=== PATIENT | male | born 1990 | race African-American/Black ===

== ENCOUNTER 2019-07-19 11:17 | Emergency (ER) | payer SELFPAY ==
[2019-07-19] MEDS ORDERED: METHYLPREDNISOLONE 125 MG INJ ONE (12:03)
[2019-07-19] MEDS ORDERED: ONDANSETRON 4 MG/2 ML VIAL ONE (12:03)
[2019-07-19] MEDS ORDERED: MORPHINE 4 MG/ML SYR ONE (12:03)
[2019-07-19] MEDS ORDERED: NA CHLORIDE 0.9% 1,000 ML ONE (12:04)
[2019-07-19 12:45] LABS: Absolute Lymphocytes (CBC) 1.4 K/uL (0.7-4.9); Basophils % 0.8 % (0-1.3); Hematocrit 47.4 % (39.6-49.0); Lymphocytes % 17.9 % (15.3-44.8); MPV 10.2 fL (7.6-11.3); RBC Red Blood Cell Count 5.48 M/uL (4.33-5.43)
[2019-07-19 13:10] LABS: Albumin 4.6 g/dL (3.4-5.0); Bilirubin Direct 0.2 mg/dL (0-0.2); Bilirubin Total 0.9 mg/dL (0.2-1.0); Potassium 3.9 mmol/L (3.5-5.1); Protein, Total 9.1 g/dL (6.4-8.2)
--- NOTE | 2019-07-19 13:39 | RAD REPORT ---
EXAM DESCRIPTION: CTAbdomen Pelvis W Contrast - 07/19/2019 1:23 pm CLINICAL HISTORY: Abdominal pain. ABD PAIN COMPARISON: CT ABD PELVIS W CONTRAST dated 06/17/2012 TECHNIQUE: Biphasic CT imaging of the abdomen and pelvis was performed with 100 ml non-ionic IV cont rast. All CT scans are performed using dose optimization technique as appropriate and may include automated exposure control or mA/KV adjustment according to patient size. FINDINGS: The lung bases are clear. The liver contains a 16 mm low-density lesion in the posterior right lobe, likely benign. The spleen, pancreas, adrenal glands and kidneys are within normal limits. No bowel obstruction, free air, free fluid or abscess. Mild thickening of the wall of the ileum is pr esent. Terminal ileum shows mild surrounding inflammatory changes. The appendix is normal. No eviden ce of significant lymphadenopathy. No suspicious bony findings. IMPRESSION: Mild terminal ileitis is present suggesting underlying Crohn's disease.
--- NOTE | 2019-07-19 13:49 | ER ---
Nurse's Notes [facility] Name: Talib Oconnell Age: 28 yrs Sex: Male : 1990 Arrival Date: 07/19/2019 Time: 11:19 Bed 20 Private MD: Diagnosis: Crohn's disease [regional enteritis] Presentation: 07/19 11:35 Presenting complaint: Patient states: LUQ pain that began yesterday. Patient has a ss history of Crohn's and reports this feels like a flare up. Transition of care: patient was not received from another setting of care. Onset of symptoms was July 18, 2019. Risk Assessment: Do you want to hurt yourself or someone else? Patient reports no desire to harm self or others. Initial Sepsis Screen: Does the patient meet any 2 criteria? HR > 90 bpm. Does the patient have a suspected source of infection? No. Patient's initial sepsis screen is negative. Care prior to arrival: None. 11:35 Method Of Arrival: Ambulatory ss 11:35 Acuity: SUNI 3 ss Historical: - Allergies: 12:39 No Known Allergies; jl7 - Home Meds: 11:34 None [Active]; ss - PMHx: 11:34 Crohn's; ss - PSHx: 11:34 None; ss - Immunization history:: Adult Immunizations up to date. - Social history:: Smoking status: Patient uses tobacco products, smokes one pack cigarettes per day. - Ebola Screening: : Patient denies exposure to infectious person Patient denies travel to an Ebola-affected area in the 21 days before illness onset. Screenin:39 Abuse screen: Denies threats or abuse. Denies injuries from another. Nutritional jl7 screening: No deficits noted. Tuberculosis screening: No symptoms or risk factors identified. Fall Risk IV access (20 points). Total Dent Fall Scale indicates No Risk (0-24 pts). Assessment: 12:20 General: Appears in no apparent distress. uncomfortable, Behavior is cooperative, jl7 appropriate for age, anxious. Pain: Complains of pain in abdomen diffusely Pain currently is 8 out of 10 on a pain scale. Quality of pain is described as sharp, throbbing, Pain began 1 day ago. Is continuous. Neuro: Level of Consciousness is awake, alert, obeys commands, Oriented to person, place, time, situation. Cardiovascular: Patient's skin is warm and dry. Respiratory: Airway is patent Respiratory effort is even, unlabored, Respiratory pattern is regular, symmetrical. GI: Abdomen is flat, non-distended, Stools are reported to be normal. Last BM was July 19, 2019. : No signs and/or symptoms were reported regarding the genitourinary system. EENT: No signs and/or symptoms were reported regarding the EENT system. Derm: Skin is dry, Skin is normal, Skin temperature is warm. Vital Signs: 11:34 BP 131 / 118; Pulse 105; Resp 18; Temp 98.8(TE); Pulse Ox 100% on R/A; Weight 68.04 kg; ss Height 5 ft. 8 in. (172.72 cm); Pain 10/10; 11:36 BP 129 / 103; Pulse 99; ss 12:25 BP 140 / 89; Pulse 87; Resp 16 S; Pulse Ox 100% on R/A; Pain 8/10; jl7 14:00 BP 129 / 87; Pulse 66; Resp 16 S; Pulse Ox 100% on R/A; Pain 4/10; jl7 11:34 Body Mass Index 22.81 (68.04 kg, 172.72 cm) ED Course: 11:19 Patient arrived in ED. mr 11:21 Kleber Guidryistin, [facility]. kb 11:21 Fuad De La Garza MD is Attending Physician. kb 11:34 Arm band placed on left wrist. ss 11:35 Triage completed. ss 11:54 Melanie Damon, AUDRA is Primary Nurse. jl7 12:39 Patient has correct armband on for positive identification. Placed in gown. Bed in low jl7 position. Call light in reach. Side rails up X 1. Pulse ox on. NIBP on. 12:39 Initial lab(s) drawn, by me, sent to lab. Inserted saline lock: 22 gauge in right jl7 forearm, using aseptic technique. Blood collected. 13:26 CT Abd/Pelvis - IV Contrast Only In Process Unspecified. EDMS 14:00 No provider procedures requiring assistance completed. IV discontinued, intact, jl7 bleeding controlled, No redness/swelling at site. Pressure dressing applied. Administered Medications: 12:25 Drug: NS 0.9% 1000 ml Route: IV; Rate: 1000 ml; Site: right forearm; jl7 13:30 Follow up: Response: No adverse reaction; IV Status: Completed infusion; IV Intake: jl7 1000ml 12:26 Drug: SOLU-Medrol 125 mg Route: IVP; Site: right forearm; jl7 14:16 Follow up: Response: No adverse reaction jl7 12:27 Drug: Zofran 4 mg Route: IVP; Site: right forearm; jl7 14:15 Follow up: Response: No adverse reaction jl7 12:28 Drug: morphine 4 mg Route: IVP; Site: right forearm; jl7 12:45 Follow up: Response: No adverse reaction; Pain is decreased jl7 13:59 Drug: Cipro 500 mg Route: PO; jl7 14:00 Follow up: Response: Medication administered at discharge. jl7 13:59 Drug: Flagyl 500 mg Route: PO; jl7 14:00 Follow up: Response: Medication administered at discharge. jl7 Intake: 13:30 IV: 1000ml; Total: 1000ml. jl7 Outcome: 13:48 Discharge ordered by . patrick 14:00 Discharged to home ambulatory. jl7 14:00 Condition: stable 14:00 Discharge instructions given to patient, family, Instructed on discharge instructions, follow up and referral plans. medication usage, Demonstrated understanding of instructions, follow-up care, medications. 14:18 Patient left the ED. jl7 Signatures: Dispatcher [employer] EDMS Darlene Guidry, CHECK EXAMINER-C CHECK EXAMINER-Armen Ishaan Lea duran Yue Kang RN RN ss Leal, Jahala, RN RN jl7 Corrections: (The following items were deleted from the chart) 14:18 14:17 No provider procedures requiring assistance completed. jl7 jl7 14:18 14:17 IV discontinued, intact, bleeding controlled, No redness/swelling at site. jl7 Pressure dressing applied, jl7
--- NOTE | 2019-07-19 13:50 | EDPHYS ---
Physician Documentation [facility] Name: Talib Oconnell Age: 28 yrs Sex: Male : 1990 Arrival Date: 07/19/2019 Time: 11:19 Bed 20 Private MD: JACQUI Physician Fuad De La Garza HPI: 07/19 11:57 This 28 yrs old Black Male presents to ER via Ambulatory with complaints of Abdominal kb Pain, Vomiting. 11:57 The patient presents with abdominal pain in the upper abdomen. Onset: The kb symptoms/episode began/occurred yesterday. The symptoms do not radiate. Associated signs and symptoms: none. The symptoms are described as constant, sharp. Modifying factors: The symptoms are alleviated by nothing, the symptoms are aggravated by nothing. Severity of pain: At its worst the pain was moderate severe in the emergency department the pain is unchanged. The patient has experienced a previous episode. The patient has not recently seen a physician. Pt reports he was diagnosed with crohn's in February in [place]. States they told him to follow up with GI, but he didn't. The pain started again yesterday so he called to make a GI appt, but it isn't until next week. Reports pain is worse today. Historical: - Allergies: 12:39 No Known Allergies; jl7 - Home Meds: 11:34 None [Active]; ss - PMHx: 11:34 Crohn's; ss - PSHx: 11:34 None; ss - Immunization history:: Adult Immunizations up to date. - Social history:: Smoking status: Patient uses tobacco products, smokes one pack cigarettes per day. - Ebola Screening: : Patient denies exposure to infectious person Patient denies travel to an Ebola-affected area in the 21 days before illness onset. ROS: 11:59 Constitutional: Negative for fever, chills, and weight loss, ENT: Negative for injury, kb pain, and discharge, Neck: Negative for injury, pain, and swelling, Cardiovascular: Negative for chest pain, palpitations, and edema, Respiratory: Negative for shortness of breath, cough, wheezing, and pleuritic chest pain, Back: Negative for injury and pain, : Negative for injury, bleeding, discharge, and swelling, MS/Extremity: Negative for injury and deformity, Skin: Negative for injury, rash, and discoloration, Neuro: Negative for headache, weakness, numbness, tingling, and seizure. 11:59 Abdomen/GI: Positive for abdominal pain, Negative for nausea, vomiting, and diarrhea, constipation, abdominal cramps, abdominal distension, anorexia. Exam: 11:59 Constitutional: This is a well developed, well nourished patient who is awake, alert, kb and in no acute distress. Head/Face: Normocephalic, atraumatic. ENT: Nares patent. No nasal discharge, no septal abnormalities noted. Tympanic membranes are normal and external auditory canals are clear. Oropharynx with no redness, swelling, or masses, exudates, or evidence of obstruction, uvula midline. Mucous membranes moist. Neck: Trachea midline, no thyromegaly or masses palpated, and no cervical lymphadenopathy. Supple, full range of motion without nuchal rigidity, or vertebral point tenderness. No Meningismus. Chest/axilla: Normal chest wall appearance and motion. Nontender with no deformity. No lesions are appreciated. Cardiovascular: Regular rate and rhythm with a normal S1 and S2. No gallops, murmurs, or rubs. Normal PMI, no JVD. No pulse deficits. Respiratory: Lungs have equal breath sounds bilaterally, clear to auscultation and percussion. No rales, rhonchi or wheezes noted. No increased work of breathing, no retractions or nasal flaring. Back: No spinal tenderness. No costovertebral tenderness. Full range of motion. Skin: Warm, dry with normal turgor. Normal color with no rashes, no lesions, and no evidence of cellulitis. MS/ Extremity: Pulses equal, no cyanosis. Neurovascular intact. Full, normal range of motion. Neuro: Awake and alert, GCS 15, oriented to person, place, time, and situation. Cranial nerves II-XII grossly intact. Motor strength 5/5 in all extremities. Sensory grossly intact. Cerebellar exam normal. Normal gait. 11:59 Abdomen/GI: Inspection: abdomen appears normal, Bowel sounds: normal, in all quadrants, Palpation: soft, in all quadrants, moderate abdominal tenderness, in all quadrants. Vital Signs: 11:34 BP 131 / 118; Pulse 105; Resp 18; Temp 98.8(TE); Pulse Ox 100% on R/A; Weight 68.04 kg; ss Height 5 ft. 8 in. (172.72 cm); Pain 10/10; 11:36 BP 129 / 103; Pulse 99; ss 12:25 BP 140 / 89; Pulse 87; Resp 16 S; Pulse Ox 100% on R/A; Pain 8/10; jl7 14:00 BP 129 / 87; Pulse 66; Resp 16 S; Pulse Ox 100% on R/A; Pain 4/10; jl7 11:34 Body Mass Index 22.81 (68.04 kg, 172.72 cm) MDM: 11:37 Patient medically screened. rosalina 11:59 Data reviewed: vital signs, nurses notes. Data interpreted: Pulse oximetry: on room air kb is 100 %. Interpretation: normal. 13:47 Counseling: I had a detailed discussion with the patient and/or guardian regarding: the kb historical points, exam findings, and any diagnostic results supporting the discharge/admit diagnosis, lab results, radiology results, the need for outpatient follow up, a family practitioner, a overnight houseperson, to return to the emergency department if symptoms worsen or persist or if there are any questions or concerns that arise at home. 07/19 11:54 Order name: Basic Metabolic Panel; Complete Time: 13:12 kb 07/19 11:54 Order name: CBC with Diff; Complete Time: 13:10 kb 07/19 11:54 Order name: Hepatic Function; Complete Time: 13:12 kb 07/19 11:54 Order name: Lipase; Complete Time: 13:12 kb 07/19 11:55 Order name: CT Abd/Pelvis - IV Contrast Only; Complete Time: 13:44 kb 07/19 11:54 Order name: IV Saline Lock; Complete Time: 12:34 kb 07/19 11:54 Order name: Labs collected and sent; Complete Time: 12:34 kb Administered Medications: 12:25 Drug: NS 0.9% 1000 ml Route: IV; Rate: 1000 ml; Site: right forearm; jl7 13:30 Follow up: Response: No adverse reaction; IV Status: Completed infusion; IV Intake: jl7 1000ml 12:26 Drug: SOLU-Medrol 125 mg Route: IVP; Site: right forearm; jl7 14:16 Follow up: Response: No adverse reaction jl7 12:27 Drug: Zofran 4 mg Route: IVP; Site: right forearm; jl7 14:15 Follow up: Response: No adverse reaction jl7 12:28 Drug: morphine 4 mg Route: IVP; Site: right forearm; jl7 12:45 Follow up: Response: No adverse reaction; Pain is decreased jl7 13:59 Drug: Cipro 500 mg Route: PO; jl7 14:00 Follow up: Response: Medication administered at discharge. jl7 13:59 Drug: Flagyl 500 mg Route: PO; jl7 14:00 Follow up: Response: Medication administered at discharge. jl7 Disposition: 07/20 06:41 Co-signature as Attending Physician, Fuad De La Garza MD I agree with the assessment and rosalina plan of care. Disposition: 07/19/19 13:48 Discharged to Home. Impression: Crohn's disease [regional enteritis]. - Condition is Stable. - Discharge Instructions: Crohn Disease. - Prescriptions for Bentyl 20 mg Oral Tablet - take 1 tablet by ORAL route every 6 hours As needed; 20 tablet. Flagyl 500 mg Oral Tablet - take 1 tablet by ORAL route every 8 hours for 7 days; 21 tablet. Cipro 500 mg Oral Tablet - take 1 tablet by ORAL route every 12 hours for 7 days; 14 tablet. Medrol (Jeovanny) 4 mg Oral Tablets, Dose Pack - take 1 tablet by ORAL route as directed - follow package instructions; 1 packet. - Medication Reconciliation Form, Thank You Letter, Antibiotic Education, Prescription Opioid Use form. - Follow up: Emergency Department; When: As needed; Reason: Worsening of condition. Follow up: Private Physician; When: 2 - 3 days; Reason: Recheck today's complaints, Continuance of care, Re-evaluation by your physician. Signatures: Dispatcher [employer] Darlene Goldberg, JOSEFINA DEL RIO-Fuad Steinberg MD MD cha Smirch, Shelby, RN RN ss Leal, Jahala, RN RN jl7 Corrections: (The following items were deleted from the chart) 07/19 14:18 13:48 07/19/2019 13:48 Discharged to Home. Impression: Crohn's disease [regional jl7 enteritis]. Condition is Stable. Forms are Medication Reconciliation Form, Thank You Letter, Antibiotic Education, Prescription Opioid Use. Follow up: Emergency Department; When: As needed; Reason: Worsening of condition. Follow up: Private Physician; When: 2 - 3 days; Reason: Recheck today's complaints, Continuance of care, Re-evaluation by your physician. kb
[2019-07-19] MEDS ORDERED: CIPROFLOXACIN HCL 500 MG TAB ONE (13:53)
[2019-07-19] MEDS ORDERED: metroNIDAZOLE 500 MG TABLET ONE (13:53)
[2019-07-19 14:43] VITALS: TEMP 98.8; O2SAT 100
[2019-07-19 14:46] VITALS: BP 129/87
== END 2019-07-19 14:18 | disposition home or self-care (01) ==
LOC: ER 11:17
DX: K50.90 Crohn's disease, unspecified, without complications (principal); F17.210 Nicotine dependence, cigarettes, uncomplicated
CPT/HCPCS: 36415; 74177; 80048; 80076; 83690; 85025; 96361; 96374; 96375; 99284; J2405; J2930; J7030; Q9967

== ENCOUNTER 2020-07-17 09:15 | Emergency (ER) | payer SELFPAY ==
[2020-07-17 10:14] LABS: Absolute Lymphocytes (CBC) 0.8 K/uL (0.7-4.9); Basophils % 0.9 % (0-1.3); Hematocrit 40.4 % (39.6-49.0); Lymphocytes % 10.9 % (15.3-44.8); MPV 9.6 fL (7.6-11.3); RBC Red Blood Cell Count 4.62 M/uL (4.33-5.43)
[2020-07-17] MEDS ORDERED: METHYLPREDNISOLONE 125 MG INJ ONE (10:17)
[2020-07-17] MEDS ORDERED: MORPHINE 4 MG/ML SYR ONE (10:18)
[2020-07-17] MEDS ORDERED: FAMOTIDINE 20 MG/2 ML VIAL IV ONE (10:18)
[2020-07-17] MEDS ORDERED: NA CHLORIDE 0.9% 1,000 ML ONE (10:18)
[2020-07-17] MEDS ORDERED: ONDANSETRON 4 MG/2 ML VIAL ONE (10:18)
[2020-07-17 10:26] LABS: ALT/SGPT 37 U/L (12-78); AST/SGOT 26 U/L (15-37); Albumin 3.7 g/dL (3.4-5.0); Alkaline Phosphatase 115 U/L (45-117); BUN Blood Urea Nitrogen 11 mg/dL (7-18); Bicarbonate 26 mmol/L (21-32); Bilirubin Direct < 0.1 mg/dL (0-0.2); Bilirubin Total 0.3 mg/dL (0.2-1.0); Glucose Level 92 mg/dL (74-106); Lipase 85 U/L (73-393); Potassium 3.6 mmol/L (3.5-5.1); Protein, Total 7.3 g/dL (6.4-8.2); Sodium Level 140 mmol/L (136-145)
--- NOTE | 2020-07-17 12:00 | EDPHYS ---
Physician Documentation [facility] Name: Talib Oconnell Age: 29 yrs Sex: Male : 1990 Arrival Date: 07/17/2020 Time: 09:19 Bed 14 Private MD: ED Physician Anderson Graf HPI: 07/17 19:42 This 29 yrs old Black Male presents to ER via Ambulatory with complaints of Crohns kdr flare up. 19:42 The patient presents with abdominal pain in the epigastric area, in the upper abdomen. kdr Onset: The symptoms/episode began/occurred suddenly, this morning. The symptoms do not radiate. Associated signs and symptoms: Pertinent positives: nausea and vomiting, Pertinent negatives: blood in stools, chest pain, constipation, diarrhea, dysuria, fever, headache, hematuria, palpitations, shortness of breath, testicular pain. The symptoms are described as achy, crampy, vague, waxing/waning. Modifying factors: The symptoms are alleviated by nothing, the symptoms are aggravated by breathing deeply, movement, touching the area. Severity of pain: At its worst the pain was moderate in the emergency department the pain is unchanged. The patient has experienced similar episodes in the past, multiple times. The patient has not recently seen a physician. Historical: - Allergies: 10:17 No Known Allergies; bp - Home Meds: 10:17 None [Active]; bp - PMHx: 10:17 Crohn's; bp - Immunization history:: Adult Immunizations unknown. - Social history:: Smoking status: Patient denies any tobacco usage or history of. ROS: 07/18 09:22 Constitutional: Negative for fever, chills, and weight loss, Eyes: Negative for injury, kdr pain, redness, and discharge, ENT: Negative for injury, pain, and discharge, Neck: Negative for injury, pain, and swelling, Cardiovascular: Negative for chest pain, palpitations, and edema, Respiratory: Negative for shortness of breath, cough, wheezing, and pleuritic chest pain, Back: Negative for injury and pain, : Negative for injury, bleeding, discharge, and swelling, MS/Extremity: Negative for injury and deformity, Skin: Negative for injury, rash, and discoloration, Neuro: Negative for headache, weakness, numbness, tingling, and seizure activity. Psych: Negative for depression, anxiety, suicide ideation, homicidal ideation, and hallucinations, Allergy/Immunology: Negative for hives, rash, and allergies, Endocrine: Negative for neck swelling, polydipsia, polyuria, polyphagia, and marked weight changes, Hematologic/Lymphatic: Negative for swollen nodes, abnormal bleeding, and unusual bruising. Abdomen/GI: Positive for abdominal pain, nausea, Negative for constipation, abdominal cramps, abdominal distension, anorexia, dysphagia, hematemesis, black/tarry stool, rectal pain, rectal bleeding, bowel incontinence. Exam: 09:22 Constitutional: This is a well developed, well nourished patient who is awake, alert, kdr and in no acute distress. Head/Face: Normocephalic, atraumatic. Eyes: Pupils equal round and reactive to light, extra-ocular motions intact. Lids and lashes normal. Conjunctiva and sclera are non-icteric and not injected. Cornea within normal limits. Periorbital areas with no swelling, redness, or edema. Neck: Trachea midline, no thyromegaly or masses palpated, and no cervical lymphadenopathy. Supple, full range of motion without nuchal rigidity, or vertebral point tenderness. No Meningismus. Chest/axilla: Normal chest wall appearance and motion. Nontender with no deformity. No lesions are appreciated. Cardiovascular: Regular rate and rhythm with a normal S1 and S2. No gallops, murmurs, or rubs. Normal PMI, no JVD. No pulse deficits. Respiratory: Lungs have equal breath sounds bilaterally, clear to auscultation and percussion. No rales, rhonchi or wheezes noted. No increased work of breathing, no retractions or nasal flaring. Back: No spinal tenderness. No costovertebral tenderness. Full range of motion. Skin: Warm, dry with normal turgor. Normal color with no rashes, no lesions, and no evidence of cellulitis. MS/ Extremity: Pulses equal, no cyanosis. Neurovascular intact. Full, normal range of motion. Neuro: Awake and alert, GCS 15, oriented to person, place, time, and situation. Cranial nerves II-XII grossly intact. Motor strength 5/5 in all extremities. Sensory grossly intact. Cerebellar exam normal. Normal gait. Psych: Awake, alert, with orientation to person, place and time. Behavior, mood, and affect are within normal limits. 09:22 Abdomen/GI: Inspection: abdomen appears normal, Bowel sounds: active, diminished, in all quadrants, Palpation: soft, mild abdominal tenderness, in all quadrants. Vital Signs: 07/17 09:40 BP 130 / 80; Pulse 91; Resp 20; Temp 98.7; Pulse Ox 100% ; Weight 64.41 kg; Height 5 dm5 ft. 8 in. (172.72 cm); Pain 7/10; 10:19 BP 134 / 87; Pulse 82; Resp 16; Pulse Ox 100% ; bp 11:31 BP 138 / 98; Pulse 86; Resp 16; Pulse Ox 100% ; bp 11:59 BP 133 / 86; Pulse 89; Resp 16; Temp 98.5; Pulse Ox 100% ; bp 09:40 Body Mass Index 21.59 (64.41 kg, 172.72 cm) dm5 MDM: 11:59 Patient medically screened. kdr 07/18 09:22 Data reviewed: vital signs, nurses notes, lab test result(s). Counseling: I had a kdr detailed discussion with the patient and/or guardian regarding: the historical points, exam findings, and any diagnostic results supporting the discharge/admit diagnosis, lab results, the need for outpatient follow up. ED course: The patient states that this episode of pain and flare is typical. We discussed that if this episode was typical and not unique, then there was no need for further CT scans. He improved with the interventions given and was happy with the care proved and the plan for discharge and follow-up. 07/17 09:42 Order name: Basic Metabolic Panel; Complete Time: 10:52 kdr 07/17 09:42 Order name: CBC with Diff; Complete Time: 10:52 kdr 07/17 09:42 Order name: Hepatic Function; Complete Time: 10:52 kdr 07/17 09:42 Order name: Lipase; Complete Time: 10:52 kdr 07/17 09:42 Order name: IV Saline Lock; Complete Time: 10:12 kdr 07/17 09:42 Order name: Labs collected and sent; Complete Time: 10:12 kdr Administered Medications: 07/17 10:00 Drug: morphine 4 mg Route: IVP; Site: right forearm; bp 11:58 Follow up: Response: Pain is decreased bp 10:00 Drug: Zofran (Ondansetron) 4 mg Route: IVP; Site: right forearm; bp 11:58 Follow up: Response: Nausea is decreased bp 10:00 Drug: NS 0.9% 1000 ml Route: IV; Rate: 1 bolus; Site: right forearm; bp 11:58 Follow up: IV Status: Completed infusion bp 10:00 Drug: Pepcid 20 mg Route: IVP; Site: right forearm; bp 11:58 Follow up: Response: Nausea is decreased bp 10:00 Drug: SOLU-Medrol 125 mg Route: IVP; Site: right forearm; bp 11:58 Follow up: Response: Pain is decreased bp Disposition: 07/17/20 11:59 Discharged to Home. Impression: Abdominal and pelvic pain, Nausea and vomiting, Diarrhea, unspecified, Crohn's disease, unspecified. - Condition is Fair. - Discharge Instructions: Crohn Disease, Nausea and Vomiting, Adult, [id number], Abdominal Pain, Adult, [id number], Diarrhea, Adult, [id number]. - Prescriptions for Bentyl 20 mg Oral Tablet - take 1 tablet by ORAL route every 6 hours As needed; 20 tablet. Cipro 500 mg Oral Tablet - take 1 tablet by ORAL route every 12 hours for 10 days; 20 tablet. Flagyl 500 mg Oral Tablet - take 1 tablet by ORAL route every 6 hours for 10 days; 40 tablet. Pepcid 20 mg Oral Tablet - take 1 tablet by ORAL route every 12 hours for 5 days; 10 tablet. Tramadol 50 mg Oral Tablet - take 1 tablet by ORAL route every 6-8 hours As needed as needed; 12 tablet. Medrol (Jeovanny) 4 mg Oral Tablets, Dose Pack - take 1 tablet by ORAL route as directed - follow package instructions; 1 packet. promethazine 25 mg Oral Tablet - take 1 tablet by ORAL route every 6 hours As needed; 20 tablet. - Medication Reconciliation Form, Thank You Letter, Antibiotic Education, Prescription Opioid Use form. - Follow up: Private Physician; When: 2 - 3 days; Reason: If symptoms return, Further diagnostic work-up, Recheck today's complaints, Continuance of care, Re-evaluation by your physician. - Problem is an acute exacerbation. - Symptoms have improved. Signatures: Dispatcher [employer] EDMS Anderson Graf MD MD kdr Peltier, Brian RN RN bp Corrections: (The following items were deleted from the chart) 12:08 11:59 07/17/2020 11:59 Discharged to Home. Impression: Abdominal and pelvic pain; bp Nausea and vomiting; Diarrhea, unspecified; Crohn's disease, unspecified. Condition is Fair. Forms are Medication Reconciliation Form, Thank You Letter, Antibiotic Education, Prescription Opioid Use. Follow up: Private Physician; When: 2 - 3 days; Reason: If symptoms return, Further diagnostic work-up, Recheck today's complaints, Continuance of care, Re-evaluation by your physician. Problem is an acute exacerbation. Symptoms have improved. kdr
--- NOTE | 2020-07-17 12:00 | ER ---
Nurse's Notes [facility] Name: Talib Oconnell Age: 29 yrs Sex: Male : 1990 Arrival Date: 07/17/2020 Time: 09:19 Bed 14 Private MD: Diagnosis: Abdominal and pelvic pain;Nausea and vomiting;Diarrhea, unspecified;Crohn's disease, unspecified Presentation: 07/17 09:41 Acuity: SUNI 3 dm5 09:56 Chief complaint: Patient states: intense abdominal pain started today after eating dm5 oatmeal. Pt states this is different than before because he didn't have any warning signs. Coronavirus screen: Client denies travel out of the [place] in the last 14 days. At this time, the client does not indicate any symptoms associated with coronavirus-19. Ebola Screen: Patient negative for fever greater than or equal to 101.5 degrees Fahrenheit, and additional compatible Ebola Virus Disease symptoms Patient denies exposure to infectious person. Patient denies travel to an Ebola-affected area in the 21 days before illness onset. No symptoms or risks identified at this time. Initial Sepsis Screen: Does the patient meet any 2 criteria? No. Patient's initial sepsis screen is negative. Does the patient have a suspected source of infection? No. Patient's initial sepsis screen is negative. Risk Assessment: Do you want to hurt yourself or someone else? Patient reports no desire to harm self or others. Onset of symptoms was July 17, 2020. 09:56 Method Of Arrival: Ambulatory dm5 Triage Assessment: 10:00 General: Appears in no apparent distress. uncomfortable, Behavior is cooperative, bp appropriate for age, anxious. Pain: Complains of pain in abdomen. EENT: No deficits noted. Neuro: No deficits noted. Cardiovascular: No deficits noted. Respiratory: No deficits noted. GI: Reports lower abdominal pain, upper abdominal pain, nausea. : No signs and/or symptoms were reported regarding the genitourinary system. Derm: No deficits noted. Musculoskeletal: No deficits noted. Historical: - Allergies: 10:17 No Known Allergies; bp - Home Meds: 10:17 None [Active]; bp - PMHx: 10:17 Crohn's; bp - Immunization history:: Adult Immunizations unknown. - Social history:: Smoking status: Patient denies any tobacco usage or history of. Screenin:00 Abuse screen: Denies threats or abuse. Denies injuries from another. Nutritional bp screening: No deficits noted. Tuberculosis screening: No symptoms or risk factors identified. Fall Risk None identified. Assessment: 10:00 General: SEE TRIAGE NOTE. bp 11:31 Reassessment: ALL CURRENT ORDERS COMPLETED, PT STATES S/S IMPROVED. bp 11:59 Reassessment: PT D/C HOME AMBULATORY, DX WITH ABD PAIN AND CROHN'S. bp Vital Signs: 09:40 BP 130 / 80; Pulse 91; Resp 20; Temp 98.7; Pulse Ox 100% ; Weight 64.41 kg; Height 5 dm5 ft. 8 in. (172.72 cm); Pain 7/10; 10:19 BP 134 / 87; Pulse 82; Resp 16; Pulse Ox 100% ; bp 11:31 BP 138 / 98; Pulse 86; Resp 16; Pulse Ox 100% ; bp 11:59 BP 133 / 86; Pulse 89; Resp 16; Temp 98.5; Pulse Ox 100% ; bp 09:40 Body Mass Index 21.59 (64.41 kg, 172.72 cm) dm5 ED Course: 09:19 Patient arrived in ED. mr 09:21 Anderson Graf MD is Attending Physician. kdr 09:41 Triage completed. dm5 10:00 Patient has correct armband on for positive identification. Bed in low position. Call bp light in reach. Side rails up X2. Adult w/ patient. 10:00 Arm band placed on. bp 10:02 Inserted saline lock: 20 gauge in right forearm, using aseptic technique. dm5 10:12 Ryan Oneill, AUDRA is Primary Nurse. bp 11:59 No provider procedures requiring assistance completed. IV discontinued, intact, bp bleeding controlled, No redness/swelling at site. Pressure dressing applied. Administered Medications: 10:00 Drug: morphine 4 mg Route: IVP; Site: right forearm; bp 11:58 Follow up: Response: Pain is decreased bp 10:00 Drug: Zofran (Ondansetron) 4 mg Route: IVP; Site: right forearm; bp 11:58 Follow up: Response: Nausea is decreased bp 10:00 Drug: NS 0.9% 1000 ml Route: IV; Rate: 1 bolus; Site: right forearm; bp 11:58 Follow up: IV Status: Completed infusion bp 10:00 Drug: Pepcid 20 mg Route: IVP; Site: right forearm; bp 11:58 Follow up: Response: Nausea is decreased bp 10:00 Drug: SOLU-Medrol 125 mg Route: IVP; Site: right forearm; bp 11:58 Follow up: Response: Pain is decreased bp Outcome: 11:59 Discharge ordered by . nasima 12:00 Discharged to home ambulatory. bp 12:00 Condition: stable 12:00 Discharge instructions given to patient, Instructed on discharge instructions, follow up and referral plans. Demonstrated understanding of instructions, follow-up care. 12:08 Patient left the ED. bp Signatures: Meredith Stapleton RN RN dm5 Anderson Graf MD MD kdr Rivera, Mary mr Peltier, Brian, RN RN bp
[2020-07-17 12:13] VITALS: O2SAT 100
[2020-07-17 12:19] VITALS: BP 133/86; TEMP 98.5
--- OUTSIDE RECORDS SUMMARY | 2020-07-23 14:54 | XMS REPORT | Continuity of Care Document ---
:1990 Author Organization [facility] t Address [address] [place] [address] Care Team Providers Name Role Phone Unavailable Unavailable Unavailable Payers Payer Name Policy Type Policy Number Effective Date Expiration Date S ource Problems This patient has no known problems. Allergies, Adverse Reactions, Alerts Allergy Allergy Status Severity Reaction(s) Onset Inactive Treating Comm ents Source Name Type Date Date Clinician No Known DA Active U [facility] No [facility] Active [facility] 03-27 [facility] No Known DA Active U 2007-10 [facility] Contrast 0-07 [facility] No Known DA Active U 2007-10 [facility]- [facility] No Known DA Active U 2007- [facility] 0[facility]07 [facility] No Known DA Active U 2007-10 [facility] Other 0-07 [facility] Medications This patient has no known medications. Procedures This patient has no known procedures. Results Test Description Test Time Test Comments Results Result [facility] e Comments - XR UGI W/KAMERON 2019-03-30 FAX: Y BOWEL 09:49:00 Jv Peña [phone] [place]: EM St: ADM FAX: Y Rigo,Advitya MD [phone] Name: NIGRIS RUDD [facility] : 1990 Age/S: 28/M [address] [facility] Unit #: [id number] Loc: [address] [place], [place]: [place] [address] Acct: [id number] Dis Date: Status: ADM IN PHONE #: [phone] Exam Date: 03/30/2019927 FAX #: [phone] Reason: r/o TI stricture EXAMS: CPT CODE: [id number] XR UGI W/SMALL BOWEL 75475 Dictation location: U19. UPPER GI SERIES WITH SMALL BOWEL FOLLOW-THROUGH HISTORY: TI stricture. TECHNIQUE AND FINDINGS: Fluoroscopy time: 2.1 minutes. Dose area product (DAP Gycm2): 11.99. The patient was given thick and thin barium to drink by mouth and multiple photospot images were obtained of the esophagus and stomach.No mucosal irregularity, mass or stricture seen in the esophagus or stomach. There is some minimal gastroesophageal reflux. Duodenal bulb is unremarkable. Additional contrast was given and overhead images were obtained as it traverses the small bowel. Contrast material had reached the cecum on the immediate post consumption image indicating a small bowel transit time of less than 10 minutes. The terminal ileum is thickened and narrowed without causing obstruction. The remainder of the small bowel loops are unremarkable. IMPRESSION: Rapid transit seen through the small bowel, less than 10 minutes. Minimal gastroesophageal reflux. Continued thickening of the terminal ileum similar to prior CT on 03/27/19. Findings may relate to Crohn's disease. Other etiologies including infection may also be considered. at 0967 Reported and signed by: Jazmyne Alexis M.D. CC: Jv Peña MD; Eliud Sierra MD Technologist: SELENE LEAHY Trnscrd Date/Time/By: 03/30/2019 (0949) : By: [email or web address] PAGE 1 Signed Report FAX: Jv Prieto [phone] [place]: St: ADM FAX: Eliud Kc MD [phone] Name: INGRIS RUDD [facility] : 1990 Age/S: 28/M [address] [facility] Unit #: [id number] Loc: [address] [place], [place]: [place] [address] Acct: [id number] Dis Date: Status: ADM IN PHONE #: [phone] Exam Date: 03/30/2019927 FAX #: [phone] Reason: r/o TI stricture EXAMS: CPT CODE: [id number] XR UGI W/SMALL BOWEL 79952 <Continued> Orig Print D/T: S: 03/30/2019 (0952) PAGE 2 Signed Report CBC W/AUTO DIFF 2019-03-30 05:30:00 Test Item Value Reference Range Interpretation Comme nts WHITE BLOOD CELL (test code = WBC) 4.5 K/mm3 4.5-11.0 N RED BLOOD CELL (test code = RBC) 4.39 M/mm3 4.40-5.90 L HEMOGLOBIN (test code = HGB) 12.6 gm/dL 13.0-17.0 L HEMATOCRIT (test code = HCT) 40.2 % 36.0-48.0 N MEAN CELL VOLUME (test code = MCV) 91.6 UM3 80.0-94.0 N MEAN CELL HGB (test code = MCH) 28.7 UUG 25.5-32.5 N MEAN CELL HGB CONCETRATION (test code = MCHC) 31.3 gm/dL 29.0-35. 5 N RED CELL DISTRIBUTION WIDTH (test code = RDW) 13.9 % 11.5-15. 0 N RED CELL DISTRIBUTION WIDTH SD (test code = RDW-SD) 47.4 fL 34 .8-50.2 N PLATELET COUNT (test code = PLT) 253 K/mm3 150-400 N MEAN PLATELET VOLUME (test code = MPV) 11.6 fl 7.4-10.4 H NEUTROPHIL % (test code = NT%) 55.7 % 49.0-76.0 N IMMATURE GRANULOCYTE % (test code = IG%) 0.2 % 0.0-0.4 N LYMPHOCYTE % (test code = LY%) 26.8 % 23.0-38.0 N MONOCYTE % (test code = MO%) 12.9 % 1.0-10.0 H EOSINOPHIL % (test code = EO%) 3.3 % 1.0-5.0 N BASOPHIL % (test code = BA%) 1.1 % 0.0-1.0 H NEUTROPHIL # (test code = NT#) 2.5 K/mm3 2.4-6.3 N IMMATURE GRANULOCYTE # (test code = IG#) 0.01 x10 3/uL 0.00-0.07 N LYMPHOCYTE # (test code = LY#) 1.2 K/mm3 1.2-4.0 N MONOCYTE # (test code = MO#) 0.6 K/mm3 0.0-0.6 N EOSINOPHIL # (test code = EO#) 0.2 K/MM3 0.0-0.7 N BASOPHIL # (test code = BA#) 0.1 K/mm3 0.0-0.2 N COMPREHENSIVE METABOLIC [id number] 05:24:00 Test Item Value Reference Range Interpretation Comments SODIUM (test code = NA) 140 mmol/l 134.0-147.0 N POTASSIUM (test code = K) 3.6 mmol/L 3.6-5.2 N CHLORIDE (test code = CL) 107 mmol/l 98.0-107.0 N CARBON DIOXIDE (test code = CO2) 24.4 mmol/l 21.0-33.0 N ANION GAP (test code = GAP) 12.2 0-20 N GLUCOSE (test code = GLU) 75 mg/dl 70.0-110.0 N BLOOD UREA NITROGEN (test code = 6 mg/dl 7.0-18.0 L BUN) CREATININE (test code = CREAT) 1.04 mg/dL 0.60-1.30 N GFR NON BLACK (test code = 91 mL/min 110-120 L GFRNONBLACK) GFR BLACK (test code = GFRBLACK) 110 mL/min 133-145 L TOTAL PROTEIN (test code = PROT) 6.4 gm/dL 6.4-8.2 N ALBUMIN (test code = ALB) 3.0 gm/dl 3.2-4.7 L CALCIUM (test code = CA) 8.2 mg/dl 8.0-10.5 N BILIRUBIN TOTAL (test code = 0.5 mg/dl 0.0-1.0 N BILT) SGOT/AST (test code = AST) 11 Units/L 15.0-37.0 L SGPT/ALT (test code = ALT) 16 Units/L 12.0-78.0 N ALKALINE PHOSPHATASE TOTAL (test 65 Units/L 50.0-136.0 N code = ALKP) [id number] 05:24:00 Test Item Value Reference Range Interpretation Comments MAGNESIUM (test code = MAG) 2.2 mg/dl 1.8-2.4 N COMPREHENSIVE METABOLIC [id number] 05:27:00 Test Item Value Reference Range Interpretation Comments SODIUM (test code = NA) 142 mmol/l 134.0-147.0 N POTASSIUM (test code = K) 3.8 mmol/L 3.6-5.2 N CHLORIDE (test code = CL) 109 mmol/l 98.0-107.0 H CARBON DIOXIDE (test code = CO2) 25.7 mmol/l 21.0-33.0 N ANION GAP (test code = GAP) 11.1 0-20 N GLUCOSE (test code = GLU) 79 mg/dl 70.0-110.0 N BLOOD UREA NITROGEN (test code = 12 mg/dl 7.0-18.0 N BUN) CREATININE (test code = CREAT) 1.08 mg/dL 0.60-1.30 N GFR NON BLACK (test code = 87 mL/min 110-120 L GFRNONBLACK) GFR BLACK (test code = GFRBLACK) 105 mL/min 133-145 L TOTAL PROTEIN (test code = PROT) 5.7 gm/dL 6.4-8.2 L ALBUMIN (test code = ALB) 2.8 gm/dl 3.2-4.7 L CALCIUM (test code = CA) 7.7 mg/dl 8.0-10.5 L BILIRUBIN TOTAL (test code = 0.6 mg/dl 0.0-1.0 N BILT) SGOT/AST (test code = AST) 8 Units/L 15.0-37.0 L SGPT/ALT (test code = ALT) 14 Units/L 12.0-78.0 N ALKALINE PHOSPHATASE TOTAL (test 62 Units/L 50.0-136.0 N code = ALKP) [id number] 05:27:00 Test Item Value Reference Range Interpretation Comments MAGNESIUM (test code = MAG) 1.8 mg/dl 1.8-2.4 N CBC W/AUTO [id number] 05:13:00 Test Item Value Reference Range Interpretation Comments WHITE BLOOD CELL (test code = 4.5 K/mm3 4.5-11.0 N WBC) RED BLOOD CELL (test code = 4.11 M/mm3 4.40-5.90 L RBC) HEMOGLOBIN (test code = HGB) 11.9 gm/dL 13.0-17.0 L HEMATOCRIT (test code = HCT) 37.7 % 36.0-48.0 N MEAN CELL VOLUME (test code = 91.7 UM3 80.0-94.0 N MCV) MEAN CELL HGB (test code = MCH) 29.0 UUG 25.5-32.5 N MEAN CELL HGB CONCETRATION 31.6 gm/dL 29.0-35.5 N (test code = MCHC) RED CELL DISTRIBUTION WIDTH 14.2 % 11.5-15.0 N (test code = RDW) RED CELL DISTRIBUTION WIDTH SD 47.9 fL 34.8-50.2 N (test code = RDW-SD) PLATELET COUNT (test code = 232 K/mm3 150-400 N PLT) MEAN PLATELET VOLUME (test code 11.8 fl 7.4-10.4 H = MPV) NEUTROPHIL % (test code = NT%) 57.5 % 49.0-76.0 N IMMATURE GRANULOCYTE % (test 0.2 % 0.0-0.4 N code = IG%) LYMPHOCYTE % (test code = LY%) 25.6 % 23.0-38.0 N MONOCYTE % (test code = MO%) 12.3 % 1.0-10.0 H EOSINOPHIL % (test code = EO%) 3.3 % 1.0-5.0 N BASOPHIL % (test code = BA%) 1.1 % 0.0-1.0 H NEUTROPHIL # (test code = NT#) 2.6 K/mm3 2.4-6.3 N IMMATURE GRANULOCYTE # (test 0.01 x10 3/uL 0.00-0.07 N code = IG#) LYMPHOCYTE # (test code = LY#) 1.2 K/mm3 1.2-4.0 N MONOCYTE # (test code = MO#) 0.6 K/mm3 0.0-0.6 N EOSINOPHIL # (test code = EO#) 0.2 K/MM3 0.0-0.7 N BASOPHIL # (test code = BA#) 0.1 K/mm3 0.0-0.2 N - CT ABD PELVIS [id number] 17:03:00 FAX: Vilma Ruano MD [place]: St: REG Name: INGRIS RUDD [facility] : 1990 Age/S: 28/M [address] [facility] Unit: [id number] Loc: [address], [place]: [place] [address] Acct: [id number] Dis Date: Status: REG ER PHONE #: [phone] Exam Date: 03/27/2019 1628 FAX #: [phone] Reason: ABD PAIN EXAMS: CPT CODE: [id number] CT ABD PELVIS W/CONT 67037 EXAMINATION: - CT ABD PELVIS W/CONT. LOCATION: S17. HISTORY: Abdominal pain, N/V. COMPARISON: None. TECHNIQUE: CT imaging was performed of abdomen and pelvis after intravenous administration of 100 cc of Isovue-300. Oral contrast material was not administered. One or more the following dose reduction techniques were used: Automated exposure control, adjustment of mA and/or kV according to patient size, and use of iterative reconstruction technique. FINDINGS: Examination is limited due to lack of oral contrast. Visualized lung bases appear unremarkable. 1.7 cm low-attenuation structure in right hepatic lobe. The gallbladder, spleen, pancreas, adrenals and kidneys appear unremarkable. No hydronephrosis. Underdistended urinary bladder. The bowel loops appear normal in course. There is diffuse long segment thickening of terminal ileum with proximal small bowel fecalization and dilatation at 3.4cm. There is thickening of ascending, transverse and descending colon as well. Nonvisualization of appendix. No abdominal or pelvic bulky lymphadenopathy is identified. No pneumoperitoneum or free fluid. Visualized osseous structures appear unremarkable. IMPRESSION: Terminal ileum thickening and hyperenhancement, as well as thickening of ascending, transverse and descending colon, findings are most suggestive of inflammatory etiology such as Crohn's/UC. Recommend GI consultation and colonoscopywhen clinically feasible. Fecalization and dilatation of jejunal bowel loops at 3.4 cm, indicative of bowel obstruction. PAGE 1 Signed Report (CONTINUED) FAX: Vilma Ruano MD [place]: St: REG -- Name: INGRIS RUDD [facility] : 1990 Age/S: 28/M [address] [facility] Unit: [id number] Loc: [address], [place]: [place] [address] Acct: [id number] Dis Date: Status: REG ER PHONE #: [phone] Exam Date: 03/27/2019 1628 FAX #: [phone] Reason: ABD PAIN EXAMS: CPT CODE: [id number] CT ABD PELVIS W/CONT 57711 <Continued> 1.7 cm indeterminate low-attenuation structure in posterior right hepatic lobe, correlate with sonography. at 1703 Reported and signed by: Dana Jones M.D. CC: Vilma Steven MD Technologist: JUAN CARL Trnscrd Dt/Tm: 03/27/2019 (4413) [email or web address] Orig Print D/T: S: 03/27/2019 (5876 PAGE 2 Signed ReportCOMPREHENSIVE METABOLIC [id number] 16:05:00 Test Item Value Reference Range Interpretation Comments SODIUM (test code = NA) 136 mmol/l 134.0-147.0 N POTASSIUM (test code = K) 3.5 mmol/L 3.6-5.2 L CHLORIDE (test code = CL) 101 mmol/l 98.0-107.0 N CARBON DIOXIDE (test code = CO2) 26.3 mmol/l 21.0-33.0 N ANION GAP (test code = GAP) 12.2 0-20 N GLUCOSE (test code = GLU) 92 mg/dl 70.0-110.0 N BLOOD UREA NITROGEN (test code = 19 mg/dl 7.0-18.0 H BUN) CREATININE (test code = CREAT) 1.13 mg/dL 0.60-1.30 N GFR NON BLACK (test code = 83 mL/min 110-120 L GFRNONBLACK) GFR BLACK (test code = GFRBLACK) 100 mL/min 133-145 L TOTAL PROTEIN (test code = PROT) 8.8 GM/DL 6.0-8.1 H ALBUMIN (test code = ALB) 4.4 gm/dL 3.2-4.7 N CALCIUM (test code = CA) 9.7 mg/dl 8.0-10.5 N BILIRUBIN TOTAL (test code = 0.7 mg/dl 0.0-1.0 N BILT) SGOT/AST (test code = AST) 13 Units/L 15.0-37.0 L SGPT/ALT (test code = ALT) 19 Units/L 12.0-78.0 N ALKALINE PHOSPHATASE TOTAL (test 103 Units/L 50.0-136.0 N code = ALKP) [id number] 16:05:00 Test Item Value Reference Range Interpretation Comments LIPASE (test code = LIP) 56 Units/L 65.0-230.0 L URINALYSIS [id number] 16:01:00 Test Item Value Reference Range Interpretation Comments UA COLOR (test code = YELLOW COLU) UA APPEARANCE (test code CLEAR = APPU) UA GLUCOSE DIPSTICK (test NORMAL mg/dl NORMAL code = DGLUU) UA BILIRUBIN DIPSTICK NEGATIVE mg/dL NEGATIVE (test code = BILU) UA KETONE DIPSTICK (test NEGATIVE mg/dl NEGATIVE code = KETU) UA SPECIFIC GRAVITY (test 1.010 1.000-1.030 code = SGU) UA BLOOD DIPSTICK (test NEGATIVE [place]/micL NEGATIVE code = JOHANA) UA PH DIPSTICK (test code 8.0 5.0-9.0 = TIRSO) UA PROTEIN DIPSTICK (test 15 mg/dl mg/dl NEGATIVE A code = PROU) UA UROBILINIOGEN DIPSTICK NORMAL mg/dl NORMAL (test code = URO) UA NITRITE DIPSTICK (test NEGATIVE NEGATIVE code = JOSE) UA LEUKOCYTE ESTERASE 25 Bambi/micL Bambi/micL NEGATIVE A DIPSTICK (test code = LEUU) UA WBC (test code = WBCU) 5-10/HPF WBC/HPF NONE UA RBC (test code = RBCU) 0-2 RBC/HPF 0-3 UA EPITHELIAL CELLS (test 5-10 EPI/HPF 0-3 A code = EPIU) UA BACTERIA (test code = FEW NONE BACU) UA RENAL CELLS (test code FEW = NETO) UA MUCUS (test code = 2+ MUCU) COMPREHENSIVE METABOLIC [id number] 16:01:00 Test Item Value Reference Range Interpretation Comments SODIUM (test code = NA) 136 mmol/l 134.0-147.0 N POTASSIUM (test code = K) 3.5 mmol/L 3.6-5.2 L CHLORIDE (test code = CL) 101 mmol/l 98.0-107.0 N CARBON DIOXIDE (test code = CO2) 26.3 mmol/l 21.0-33.0 N ANION GAP (test code = GAP) 12.2 0-20 N GLUCOSE (test code = GLU) mg/dl 70.0-110.0 BLOOD UREA NITROGEN (test code = mg/dl 7.0-18.0 BUN) CREATININE (test code = CREAT) mg/dL 0.60-1.30 GFR NON BLACK (test code = mL/min 110-120 GFRNONBLACK) GFR BLACK (test code = GFRBLACK) mL/min 133-145 TOTAL PROTEIN (test code = PROT) gm/dL 6.4-8.2 ALBUMIN (test code = ALB) gm/dl 3.2-4.7 CALCIUM (test code = CA) mg/dl 8.0-10.5 BILIRUBIN TOTAL (test code = mg/dl 0.0-1.0 BILT) SGOT/AST (test code = AST) Units/L 15.0-37.0 SGPT/ALT (test code = ALT) Units/L 12.0-78.0 ALKALINE PHOSPHATASE TOTAL (test Units/L 50.0-136.0 code = ALKP) [id number] 16:01:00 Test Item Value Reference Range Interpretation Comments LIPASE (test code = LIP) Units/L 65.0-230.0 CBC W/AUTO [id number] 15:57:00 Test Item Value Reference Range Interpretation Comments WHITE BLOOD CELL (test code = 7.5 K/mm3 4.5-11.0 N WBC) RED BLOOD CELL (test code = 5.47 M/mm3 4.40-5.90 N RBC) HEMOGLOBIN (test code = HGB) 15.6 gm/dL 13.0-17.0 N HEMATOCRIT (test code = HCT) 48.7 % 36.0-48.0 H MEAN CELL VOLUME (test code = 89.0 UM3 80.0-94.0 N MCV) MEAN CELL HGB (test code = MCH) 28.5 UUG 25.5-32.5 N MEAN CELL HGB CONCETRATION 32.0 gm/dL 29.0-35.5 N (test code = MCHC) RED CELL DISTRIBUTION WIDTH 14.0 % 11.5-15.0 N (test code = RDW) RED CELL DISTRIBUTION WIDTH SD 45.5 fL 34.8-50.2 N (test code = RDW-SD) PLATELET COUNT (test code = 302 K/mm3 150-400 N PLT) MEAN PLATELET VOLUME (test code 11.1 fl 7.4-10.4 H = MPV) NEUTROPHIL % (test code = NT%) 77.6 % 49.0-76.0 H IMMATURE GRANULOCYTE % (test 0.3 % 0.0-0.4 N code = IG%) LYMPHOCYTE % (test code = LY%) 11.8 % 23.0-38.0 L MONOCYTE % (test code = MO%) 8.8 % 1.0-10.0 N EOSINOPHIL % (test code = EO%) 0.8 % 1.0-5.0 L BASOPHIL % (test code = BA%) 0.7 % 0.0-1.0 N NEUTROPHIL # (test code = NT#) 5.9 K/mm3 2.4-6.3 N IMMATURE GRANULOCYTE # (test 0.02 x10 3/uL 0.00-0.07 N code = IG#) LYMPHOCYTE # (test code = LY#) 0.9 K/mm3 1.2-4.0 L MONOCYTE # (test code = MO#) 0.7 K/mm3 0.0-0.6 H EOSINOPHIL # (test code = EO#) 0.1 K/MM3 0.0-0.7 N BASOPHIL # (test code = BA#) 0.1 K/mm3 0.0-0.2 N URINALYSIS [id number] 15:54:00 Test Item Value Reference Range Interpretation Comments UA COLOR (test code = YELLOW COLU) UA APPEARANCE (test code CLEAR = APPU) UA GLUCOSE DIPSTICK (test NORMAL mg/dl NORMAL code = DGLUU) UA BILIRUBIN DIPSTICK NEGATIVE mg/dL NEGATIVE (test code = BILU) UA KETONE DIPSTICK (test NEGATIVE mg/dl NEGATIVE code = KETU) UA SPECIFIC GRAVITY (test 1.010 1.000-1.030 code = SGU) UA BLOOD DIPSTICK (test NEGATIVE [place]/micL NEGATIVE code = JOHANA) UA PH DIPSTICK (test code 8.0 5.0-9.0 = TIRSO) UA PROTEIN DIPSTICK (test 15 mg/dl mg/dl NEGATIVE A code = PROU) UA UROBILINIOGEN DIPSTICK NORMAL mg/dl NORMAL (test code = URO) UA NITRITE DIPSTICK (test NEGATIVE NEGATIVE code = JOSE) UA LEUKOCYTE ESTERASE 25 Bambi/micL Bambi/micL NEGATIVE A DIPSTICK (test code = LEUU) UA WBC (test code = WBCU) WBC/HPF NONE UA RBC (test code = RBCU) RBC/HPF 0-3 UA EPITHELIAL CELLS (test EPI/HPF 0-3 code = EPIU) UA BACTERIA (test code = NONE BACU)
== END 2020-07-17 12:08 | disposition home or self-care (01) ==
LOC: ER 09:15
DX: K50.90 Crohn's disease, unspecified, without complications (principal); R11.2 Nausea with vomiting, unspecified; R19.7 Diarrhea, unspecified
CPT/HCPCS: 36415; 80048; 80076; 83690; 85025; 96361; 96374; 96375; 99283; J2405; J2930; J7030

== ENCOUNTER 2020-09-08 08:33 | Emergency (ER) | payer SELFPAY ==
[2020-09-08 09:13] LABS: Absolute Lymphocytes (CBC) 0.8 K/uL (0.7-4.9); Basophils % 1.3 % (0-1.3); Hematocrit 41.7 % (39.6-49.0); Lymphocytes % 10.9 % (15.3-44.8); MPV 9.2 fL (7.6-11.3); RBC Red Blood Cell Count 4.78 M/uL (4.33-5.43)
[2020-09-08] MEDS ORDERED: DICYCLOMINE HCL 10 MG CAP ONE (09:21)
[2020-09-08] MEDS ORDERED: NA CHLORIDE 0.9% 1,000 ML ONE (09:21)
[2020-09-08] MEDS ORDERED: FAMOTIDINE 20 MG/2 ML VIAL IV ONE (09:21)
[2020-09-08 09:29] LABS: ALT/SGPT 33 U/L (12-78); AST/SGOT 30 U/L (15-37); Albumin 3.2 g/dL (3.4-5.0); Alkaline Phosphatase 117 U/L (45-117); BUN Blood Urea Nitrogen 24 mg/dL (7-18); Bicarbonate 26 mmol/L (21-32); Bilirubin Direct < 0.1 mg/dL (0-0.2); Bilirubin Total 0.2 mg/dL (0.2-1.0); Glucose Level 104 mg/dL (74-106); Lipase 136 U/L (73-393); Potassium 4.2 mmol/L (3.5-5.1); Protein, Total 6.8 g/dL (6.4-8.2); Sodium Level 142 mmol/L (136-145)
--- OUTSIDE RECORDS SUMMARY | 2020-09-08 09:47 | XMS REPORT | Continuity of Care Document ---
:1990 Author Organization [facility] t Address [address] [place] [address] Care Team Providers Name Role Phone Unavailable Unavailable Unavailable Payers Payer Name Policy Type Policy Number Effective Date Expiration Date S ource Problems This patient has no known problems. Allergies, Adverse Reactions, Alerts Allergy Allergy Status Severity Reaction(s) Onset Inactive Treating Comm ents Source Name Type Date Date Clinician No Known DA Active U 2018- [facility] No [facility] Active U [facility] No Known DA Active U 2007-10 [facility]- [facility] [...] Description Test Time Test Comments Results Result [facility] e Comments - XR UGI W/KAMERON 2019-03-30 FAX: Y BOWEL 09:49:00 Jv Peña [phone] [place]: EM St: ADM FAX: Y Eliud Sierra MD [phone] Name: INGRIS RUDD [facility] : 1990 Age/S: 28/M [address] [facility] Unit #: [id number] Loc: [address] [place], [place]: [place] [address] Acct: [id number] Dis Date: Status: ADM IN PHONE #: [phone] Exam Date: 03/30/2019927 FAX #: [phone] Reason: r/o TI stricture EXAMS: CPT CODE: [id number] XR UGI W/SMALL BOWEL 09323 Dictation location: U19. UPPER GI SERIES WITH [...] including infection may also be considered. at 0931 Reported and signed by: Jazmyne Alexis M.D. CC: Jv Peña MD; Eliud Sierra MD Technologist: SELENE LEAHY Trnscrd Date/Time/By: 03/30/2019 (0949) : By: [email or web address] PAGE 1 Signed Report FAX: Jv Prieto [phone] [place]: St: ADM FAX: Eliud Kc MD [phone] Name: INGRIS RUDD [facility] : 1990 Age/S: 28/M [address] [facility] Unit #: [id number] Loc: [address] [place], [place]: [place] [address] Acct: [id number] Dis Date: Status: ADM IN PHONE #: [phone] Exam Date: 03/30/2019927 FAX #: [phone] Reason: r/o TI stricture EXAMS: CPT CODE: [id number] XR UGI W/SMALL BOWEL [id number] <Continued> Orig Print D/T: S: 03/30/2019 (0952) [...] BA#) 0.1 K/mm3 0.0-0.2 N COMPREHENSIVE METABOLIC [id number] 05:24:00 Test Item Value Reference Range Interpretation [...] 65 Units/L 50.0-136.0 N code = ALKP) [id number] 05:24:00 Test Item Value Reference Range Interpretation Comments MAGNESIUM (test code = MAG) 2.2 mg/dl 1.8-2.4 N COMPREHENSIVE METABOLIC [id number] 05:27:00 Test Item Value Reference Range Interpretation [...] 62 Units/L 50.0-136.0 N code = ALKP) [id number] 05:27:00 Test Item Value Reference Range Interpretation Comments MAGNESIUM (test code = MAG) 1.8 mg/dl 1.8-2.4 N CBC W/AUTO [id number] 05:13:00 Test Item Value Reference Range Interpretation [...] K/mm3 0.0-0.2 N - CT ABD PELVIS [id number] 17:03:00 FAX: Vilma Ruano MD [place]: St: REG Name: INGRIS RUDD [facility] : 1990 Age/S: 28/M [address] [facility] Unit: [id number] Loc: [address], [place]: [place] [address] Acct: [id number] Dis Date: Status: REG ER PHONE #: [phone] Exam Date: 03/27/2019 1628 FAX #: [phone] Reason: ABD PAIN EXAMS: CPT CODE: [id number] CT ABD PELVIS W/CONT 77855 EXAMINATION: - CT ABD PELVIS W/CONT. LOCATION: [...] Signed Report (CONTINUED) FAX: Vilma Ruano MD [place]: St: REG -- Name: INGRIS RUDD [facility] : 1990 Age/S: 28/M [address] [facility] Unit: [id number] [place] [address] Acct: [id number] Dis Date: Status: REG ER PHONE #: [phone] Exam Date: 03/27/2019 1621 FAX #: [phone] Reason: ABD PAIN EXAMS: CPT CODE: [id number] CT ABD PELVIS W/CONT 62051 <Continued> 1.7 cm indeterminate low-attenuation structure in posterior right hepatic lobe, correlate with sonography. at 1703 Reported and signed by: Dana Jones M.D. CC: Vilma Steven MD Technologist: JUAN CARL Trnscrd Dt/Tm: 03/27/2019 (1703) t.[email or web address] Orig Print D/T: S: 03/27/2019 (1706 PAGE 2 Signed ReportCOMPREHENSIVE METABOLIC [id number] 16:05:00 Test Item Value Reference Range Interpretation [...] 103 Units/L 50.0-136.0 N code = ALKP) [id number] 16:05:00 Test Item Value Reference Range Interpretation Comments LIPASE (test code = LIP) 56 Units/L 65.0-230.0 L URINALYSIS [id number] 16:01:00 Test Item Value Reference Range Interpretation [...] (test code = 2+ MUCU) COMPREHENSIVE METABOLIC [id number] 16:01:00 Test Item Value Reference Range Interpretation [...] TOTAL (test Units/L 50.0-136.0 code = ALKP) [id number] 16:01:00 Test Item Value Reference Range Interpretation Comments LIPASE (test code = LIP) Units/L 65.0-230.0 CBC W/AUTO [id number] 15:57:00 Test Item Value Reference Range Interpretation [...] = BA#) 0.1 K/mm3 0.0-0.2 N URINALYSIS [id number] 15:54:00 Test Item Value Reference Range Interpretation [...]
--- NOTE | 2020-09-08 10:11 | RAD REPORT ---
EXAM DESCRIPTION: RAD - Abdomen W Erect - 09/08/2020 9:33 am CLINICAL HISTORY: ABD PAIN Pain COMPARISON: No comparisons FINDINGS: The bowel gas pattern is non-obstructive. No evidence of free air or pneumatosis. No suspi cious calcifications. No significant bony findings. Mild to moderate fecal retention in the colon. IMPRESSION: Mild to moderate fecal retention.
--- NOTE | 2020-09-08 10:24 | ER ---
Nurse's Notes [facility] Name: Talib Oconnell Age: 29 yrs Sex: Male : 1990 Arrival Date: 09/08/2020 Time: 08:34 Bed 20 Private MD: Diagnosis: Abdominal tenderness;Crohn's disease [regional enteritis];Constipation Presentation: 09/08 08:39 Chief complaint: Patient states: really its my work, they dont want me out there tw2 working because it feels like my stomach is on fire, inflammation or burning on the inside, it wasn't hurting to slow me down but its still bothering me just a little bit, no N/V/D. Coronavirus screen: Client presents with at least one sign or symptom that may indicate coronavirus-19. Coronavirus screen: At this time, the client does not indicate any symptoms associated with coronavirus-19. Ebola Screen: Patient denies travel to an Ebola-affected area in the 21 days before illness onset. Initial Sepsis Screen: Does the patient meet any 2 criteria? No. Patient's initial sepsis screen is negative. Does the patient have a suspected source of infection? No. Patient's initial sepsis screen is negative. Risk Assessment: Do you want to hurt yourself or someone else? Patient reports no desire to harm self or others. Onset of symptoms was September 08, 2020. 08:39 Method Of Arrival: Ambulatory tw2 08:39 Acuity: SUNI 3 tw2 Triage Assessment: 08:43 General: Appears in no apparent distress. Behavior is calm, cooperative, appropriate tw2 for age. Pain: Complains of pain in left lower quadrant. GI: Reports lower abdominal pain. Historical: - Allergies: 08:43 Morphine; "i think they gave it to me and it didnt do anything to me"; tw2 - Home Meds: 08:42 None [Active]; tw2 - PMHx: 08:42 Crohn's; tw2 - PSHx: 08:42 None; tw2 - Immunization history:: Adult Immunizations. - Social history:: Smoking status: Patient reports the use of cigarette tobacco products, smokes one-half pack cigarettes per day, Patient uses street drugs, marijuana, "daily. - Family history:: not pertinent. Screenin:47 Abuse screen: Denies threats or abuse. Nutritional screening: No deficits noted. tw2 Tuberculosis screening: No symptoms or risk factors identified. Fall Risk None identified. Assessment: 08:44 General: Appears in no apparent distress. slender, Behavior is calm, cooperative, tw2 appropriate for age. Pain: Complains of pain in left lower quadrant. Neuro: Level of Consciousness is awake, alert, obeys commands, Oriented to person, place, time, situation. Cardiovascular: Heart tones S1 S2 Patient's skin is warm and dry. Respiratory: Airway is patent Respiratory effort is even, unlabored, Respiratory pattern is regular, symmetrical, Breath sounds are clear bilaterally. GI: Abdomen is flat, Bowel sounds present X 4 quads. Abd is soft X 4 quads Reports lower abdominal pain. GI: Patient currently denies diarrhea, nausea, vomiting. : No signs and/or symptoms were reported regarding the genitourinary system. EENT: No signs and/or symptoms were reported regarding the EENT system. Derm: No signs and/or symptoms reported regarding the dermatologic system. Musculoskeletal: Range of motion: intact in all extremities. 09:27 Reassessment: xray at bedside. tw2 09:35 Reassessment: Patient appears in no apparent distress at this time. No changes from tw2 previously documented assessment. Patient and/or family updated on plan of care and expected duration. Pain level reassessed. Patient is alert, oriented x 3, equal unlabored respirations, skin warm/dry/pink. 10:41 Reassessment: Patient appears in no apparent distress at this time. Patient and/or ph family updated on plan of care and expected duration. Pain level reassessed. Patient is alert, oriented x 3, equal unlabored respirations, skin warm/dry/pink. Patient states feeling better. Patient states symptoms have improved. Vital Signs: 08:39 BP 135 / 88; Pulse 89; Resp 18; Temp 98(O); Pulse Ox 99% on R/A; Weight 65.77 kg (R); tw2 Height 5 ft. 8 in. (172.72 cm); Pain 4/10; 09:35 BP 127 / 86; Pulse 69; Resp 17; Pulse Ox 100% on R/A; tw2 10:22 BP 134 / 85; Pulse 58; Resp 18; Pulse Ox 100% on R/A; ph 10:41 Temp 97.5(TE); ph 08:39 Body Mass Index 22.05 (65.77 kg, 172.72 cm) tw2 ED Course: 08:34 Patient arrived in ED. ag5 08:41 Triage completed. tw2 08:41 Arm band placed on. tw2 08:44 Fuad De La Garza MD is Attending Physician. [facility] 08:44 Bed in low position. Call light in reach. Pulse ox on. NIBP on. Warm blanket given. tw2 08:47 Pina Gloria, RN is Primary Nurse. ph 09:05 Inserted saline lock: 20 gauge in left forearm, using aseptic technique. Blood tw2 collected. 09:33 Abdomen with Erect XRAY In Process Unspecified. EDMS 10:23 Sonali Mcclain MD is Referral Physician. [facility] 10:41 No provider procedures requiring assistance completed. IV discontinued, intact, ph bleeding controlled, No redness/swelling at site. Pressure dressing applied. Administered Medications: 09:14 Drug: Bentyl 20 mg Route: PO; tw2 10:40 Follow up: Response: No adverse reaction ph 09:16 Drug: NS 0.9% 1000 ml Route: IV; Rate: 1 bolus; Site: left forearm; tw2 10:39 Follow up: Response: No adverse reaction; IV Status: Completed infusion ph 09:16 Drug: Pepcid 20 mg Route: IVP; Site: left forearm; tw2 10:40 Follow up: Response: No adverse reaction ph Outcome: 10:23 Discharge ordered by . rosalina 10:41 Discharged to home ambulatory. ph 10:41 Condition: good 10:41 Discharge instructions given to patient, Instructed on discharge instructions, follow up and referral plans. medication usage, Demonstrated understanding of instructions, follow-up care, medications, Prescriptions given X 4. 10:42 Patient left the ED. ph Signatures: Dispatcher [employer] EDMS Fuad De La Garza MD MD cha Hall, Patricia, RN RN Katlin Richardson RN RN tw2 Tyrell Gonzales ag5
--- NOTE | 2020-09-08 10:24 | EDPHYS ---
Physician Documentation [facility] Name: Talib Oconnell Age: 29 yrs Sex: Male : 1990 Arrival Date: 09/08/2020 Time: 08:34 Bed 20 Private MD: JACQUI Physician Fuad De La Garza HPI: 09/08 09:00 This 29 yrs old Black Male presents to ER via Ambulatory with complaints of Abdominal rosalina Problem. 09:00 The patient presents with abdominal pain in the upper abdomen, in the lower abdomen, rosalina abdominal distention in the upper abdomen, in the lower abdomen. Onset: The symptoms/episode began/occurred 3 day(s) ago. The symptoms do not radiate. Associated signs and symptoms: none. The symptoms are described as burning, crampy. Modifying factors: The symptoms are alleviated by nothing, the symptoms are aggravated by nothing. Severity of pain: At its worst the pain was mild in the emergency department the pain is unchanged. The patient has not experienced similar symptoms in the past. Historical: - Allergies: 08:43 Morphine; "i think they gave it to me and it didnt do anything to me"; tw2 - Home Meds: 08:42 None [Active]; tw2 - PMHx: 08:42 Crohn's; tw2 - PSHx: 08:42 None; tw2 - Immunization history:: Adult Immunizations. - Social history:: Smoking status: Patient reports the use of cigarette tobacco products, smokes one-half pack cigarettes per day, Patient uses street drugs, marijuana, "daily. - Family history:: not pertinent. ROS: 09:00 Constitutional: Negative for fever, chills, and weight loss, Eyes: Negative for injury, rosalina pain, redness, and discharge, ENT: Negative for injury, pain, and discharge, Neck: Negative for injury, pain, and swelling, Cardiovascular: Negative for chest pain, palpitations, and edema, Respiratory: Negative for shortness of breath, cough, wheezing, and pleuritic chest pain, Back: Negative for injury and pain, : Negative for injury, bleeding, discharge, and swelling, MS/Extremity: Negative for injury and deformity, Skin: Negative for injury, rash, and discoloration, Neuro: Negative for headache, weakness, numbness, tingling, and seizure, Psych: Negative for depression, anxiety, suicide ideation, homicidal ideation, and hallucinations, Allergy/Immunology: Negative for hives, rash, and allergies, Endocrine: Negative for neck swelling, polydipsia, polyuria, polyphagia, and marked weight changes, Hematologic/Lymphatic: Negative for swollen nodes, abnormal bleeding, and unusual bruising. 09:00 Abdomen/GI: Positive for abdominal pain, of the right upper quadrant, left upper quadrant, right lower quadrant and left lower quadrant. Exam: 09:00 Constitutional: This is a well developed, well nourished patient who is awake, alert, rosalina and in no acute distress. Head/Face: Normocephalic, atraumatic. Eyes: Pupils equal round and reactive to light, extra-ocular motions intact. Lids and lashes normal. Conjunctiva and sclera are non-icteric and not injected. Cornea within normal limits. Periorbital areas with no swelling, redness, or edema. ENT: Nares patent. No nasal discharge, no septal abnormalities noted. Tympanic membranes are normal and external auditory canals are clear. Oropharynx with no redness, swelling, or masses, exudates, or evidence of obstruction, uvula midline. Mucous membranes moist. Neck: Trachea midline, no thyromegaly or masses palpated, and no cervical lymphadenopathy. Supple, full range of motion without nuchal rigidity, or vertebral point tenderness. No Meningismus. Chest/axilla: Normal chest wall appearance and motion. Nontender with no deformity. No lesions are appreciated. Cardiovascular: Regular rate and rhythm with a normal S1 and S2. No gallops, murmurs, or rubs. Normal PMI, no JVD. No pulse deficits. Respiratory: Lungs have equal breath sounds bilaterally, clear to auscultation and percussion. No rales, rhonchi or wheezes noted. No increased work of breathing, no retractions or nasal flaring. Back: No spinal tenderness. No costovertebral tenderness. Full range of motion. Male : Normal genitalia with no discharge or lesions. Skin: Warm, dry with normal turgor. Normal color with no rashes, no lesions, and no evidence of cellulitis. MS/ Extremity: Pulses equal, no cyanosis. Neurovascular intact. Full, normal range of motion. Neuro: Awake and alert, GCS 15, oriented to person, place, time, and situation. Cranial nerves II-XII grossly intact. Motor strength 5/5 in all extremities. Sensory grossly intact. Cerebellar exam normal. Normal gait. Psych: Awake, alert, with orientation to person, place and time. Behavior, mood, and affect are within normal limits. 09:00 Abdomen/GI: Inspection: abdomen appears normal, Bowel sounds: normal, Palpation: mild abdominal tenderness, in all quadrants, Liver: no appreciated palpable abnormalities, Hernia: not appreciated. Vital Signs: 08:39 BP 135 / 88; Pulse 89; Resp 18; Temp 98(O); Pulse Ox 99% on R/A; Weight 65.77 kg (R); tw2 Height 5 ft. 8 in. (172.72 cm); Pain 4/10; 09:35 BP 127 / 86; Pulse 69; Resp 17; Pulse Ox 100% on R/A; tw2 10:22 BP 134 / 85; Pulse 58; Resp 18; Pulse Ox 100% on R/A; ph 10:41 Temp 97.5(TE); ph 08:39 Body Mass Index 22.05 (65.77 kg, 172.72 cm) tw2 MDM: 08:44 Patient medically screened. rosalina 09:02 Differential diagnosis: diverticulitis, non-specific abd pain, pancreatitis, Peptic rosalina Ulcer Disease. Data reviewed: vital signs, nurses notes, lab test result(s), radiologic studies, plain films. Data interpreted: casework supervisor: rate is 89 beats/min, rhythm is regular, Pulse oximetry: on room air is 99 %. Test interpretation: by ED physician or midlevel provider: plain radiologic studies. 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 09/08 08:59 Order name: Basic Metabolic Panel; Complete Time: 10: rosalina 09/08 08:59 Order name: CBC with Diff; Complete Time: 10:21 rosalina 09/08 08:59 Order name: Hepatic Function; Complete Time: 10:21 rosalina 09/08 08:59 Order name: Lipase; Complete Time: 10: rosalina 09/08 08:59 Order name: Abdomen with Erect XRAY; Complete Time: 10:09/08 08:59 Order name: IV Saline Lock; Complete Time: 09:07 [facility] 09/08 08:59 Order name: Labs collected and sent; Complete Time: 09:08 [facility] Administered Medications: 09:14 Drug: Bentyl 20 mg Route: PO; tw2 10:40 Follow up: Response: No adverse reaction ph 09:16 Drug: NS 0.9% 1000 ml Route: IV; Rate: 1 bolus; Site: left forearm; tw2 10:39 Follow up: Response: No adverse reaction; IV Status: Completed infusion ph 09:16 Drug: Pepcid 20 mg Route: IVP; Site: left forearm; tw2 10:40 Follow up: Response: No adverse reaction ph Disposition: 09/08/20 10:23 Discharged to Home. Impression: Abdominal tenderness, Crohn's disease [regional enteritis], Constipation. - Condition is Stable. - Discharge Instructions: Abdominal Pain, Adult, Constipation, Adult, Crohn Disease, Abdominal Pain, Adult, [id number]. - Prescriptions for Bentyl 20 mg Oral Tablet - take 1 tablet by ORAL route every 6 hours As needed; 20 tablet. Flagyl 500 mg Oral Tablet - take 1 tablet by ORAL route every 12 hours for 7 days; 14 tablet. Pepcid 20 mg Oral Tablet - take 1 tablet by ORAL route every 12 hours for 10 days; 20 tablet. Miralax 17 gram/dose Oral - take 1 packet by ORAL route once daily dilute powder in 8 ounces of water or juice; 14 packet. - Medication Reconciliation Form, Thank You Letter, Antibiotic Education, Prescription Opioid Use, Work release form form. - Follow up: Private Physician; When: 2 - 3 days; Reason: Recheck today's complaints, Continuance of care, Re-evaluation by your physician. Follow up: Sonali Mcclain; When: 2 - 3 days; Reason: Recheck today's complaints, Re-evaluation by your physician. - Problem is new. - Symptoms have improved. Signatures: Dispatcher [employer] Fuad Malik MD MD cha Hall, Patricia, RN RN Katlin Richardson RN RN tw2 Corrections: (The following items were deleted from the chart) 10:42 10:23 09/08/2020 10:23 Discharged to Home. Impression: Abdominal tenderness; Crohn's ph disease [regional enteritis]; Constipation. Condition is Stable. Discharge Instructions: Abdominal Pain, Adult, Crohn Disease, Abdominal Pain, Adult, [id number], Constipation, Adult. Prescriptions for Bentyl 20 mg Oral Tablet - take 1 tablet by ORAL route every 6 hours As needed; 20 tablet, Flagyl 500 mg Oral Tablet - take 1 tablet by ORAL route every 12 hours for 7 days; 14 tablet, Pepcid 20 mg Oral Tablet - take 1 tablet by ORAL route every 12 hours for 10 days; 20 tablet, Miralax 17 gram/dose Oral - take 1 packet by ORAL route once daily dilute powder in 8 ounces of water or juice; 14 packet. and Forms are Work release form, Medication Reconciliation Form, Thank You Letter, Antibiotic Education, Prescription Opioid Use. Follow up: Private Physician; When: 2 - 3 days; Reason: Recheck today's complaints, Continuance of care, Re-evaluation by your physician. Follow up: Sonali Mcclain; When: 2 - 3 days; Reason: Recheck today's complaints, Re-evaluation by your physician. Problem is new. Symptoms have improved. rosalina
[2020-09-08 13:32] VITALS: O2SAT 100
[2020-09-08 13:34] VITALS: BP 134/85
[2020-09-08 13:35] VITALS: TEMP 97.5
== END 2020-09-08 10:42 | disposition home or self-care (01) ==
LOC: ER 08:33
DX: K50.90 Crohn's disease, unspecified, without complications (principal); K59.00 Constipation, unspecified; F17.210 Nicotine dependence, cigarettes, uncomplicated; Z88.5 Allergy status to narcotic agent
CPT/HCPCS: 36415; 74019; 80048; 80076; 83690; 85025; 96361; 96374; 99284; J7030

== ENCOUNTER 2021-04-02 13:44 | Emergency (ER) | payer SELFPAY ==
--- OUTSIDE RECORDS SUMMARY | 2021-04-02 13:47 | XMS REPORT | Continuity of Care Document ---
:1990 Author Organization [facility] t Address [address] [place] [address] Care Team Providers Name Role Phone Unavailable Unavailable Unavailable Payers Payer Name Policy Type Policy Number Effective Date Expiration Date S ource Problems This patient has no known problems. Allergies, Adverse Reactions, Alerts Allergy Allergy Status Severity Reaction(s) Onset Inactive Treating Comm ents Source Name Type Date Date Clinician No Known DA Active U 2018- [facility] 03[facility]27 [facility] No Known DA Active U [facility] Drug 03-27 [facility] Allergie 00:00: d [facility] Center No Known DA Active U 2007-10 [facility] Contrast 0- [facility]: d [facility] No Known DA Active U 2007-10 [facility] 0- [facility] d [facility] No Known DA Active U 2007- [facility] Food 0-07 [facility]: d [facility] No Known DA Active U 2007-10 [facility] Other 0-07 [facility] 00:[facility]: d [facility] Medications This patient has no known medications. Procedures This patient has no known procedures. Results Test Description Test Time Test Comments Results Result [facility] e Comments - XR UGI W/KAMERON 2019-03-30 FAX: Y BOWEL 09:49:00 Jv Peña [phone] [place]: St: ADM FAX: Y Eliud Sierra MD [phone] Name: INGRIS RUDD [facility] : 1990 Age/S: 28/M [address] [facility] [place] Unit #: [id number] Loc: [address] [place], [place]: [place] [address] Acct: [id number] Dis Date: Status: ADM IN PHONE #: [phone] Exam Date: 03/30/2019927 FAX #: [phone] Reason: r/o TI stricture EXAMS: CPT CODE: [id number] XR UGI W/SMALL BOWEL 14344 Dictation location: U19. UPPER GI SERIES WITH [...] including infection may also be considered. at 0995 Reported and signed by: Jazmyne Alexis M.D. CC: Jv Peña MD; Eliud Sierra MD Technologist: SELENE LEAHY Trnscrd Date/Time/By: 03/30/2019 (0949) : By: [email or web address] PAGE 1 Signed Report FAX: Jv Prieto [phone] [place]: St: ADM FAX: Eliud Kc MD [phone] Name: INGRIS RUDD [facility] : 1990 Age/S: 28/M [address] [facility] Unit #: [id number] Loc: [address] [place], [place]: [place] [address] Acct: [id number] Dis Date: Status: ADM IN PHONE #: [phone] Exam Date: 03/30/2019927 FAX #: [phone] Reason: r/o TI stricture EXAMS: CPT CODE: [id number] XR UGI W/SMALL BOWEL 33872 <Continued> Orig Print D/T: S: 03/30/2019 (0952) [...] BA#) 0.1 K/mm3 0.0-0.2 N COMPREHENSIVE METABOLIC [id number] 05:24:00 Test Item Value Reference Range Interpretation [...] 65 Units/L 50.0-136.0 N code = ALKP) [id number] 05:24:00 Test Item Value Reference Range Interpretation Comments MAGNESIUM (test code = MAG) 2.2 mg/dl 1.8-2.4 N COMPREHENSIVE METABOLIC [id number] 05:27:00 Test Item Value Reference Range Interpretation [...] 62 Units/L 50.0-136.0 N code = ALKP) [id number] 05:27:00 Test Item Value Reference Range Interpretation Comments MAGNESIUM (test code = MAG) 1.8 mg/dl 1.8-2.4 N CBC W/AUTO [id number] 05:13:00 Test Item Value Reference Range Interpretation [...] K/mm3 0.0-0.2 N - CT ABD PELVIS [id number] 17:03:00 FAX: Vilma Ruano MD [place]: St: REG Name: INGRIS RUDD [facility] : 1990 Age/S: 28/M [address] [facility] Unit: [id number] [place]: [place]: [place] [address] Acct: [id number] Dis Date: Status: REG ER PHONE #: [phone] Exam Date: 03/27/2019 1628 FAX #: [phone] Reason: ABD PAIN EXAMS: CPT CODE: [id number] CT ABD PELVIS W/CONT 06803 EXAMINATION: - CT ABD PELVIS W/CONT. LOCATION: [...] Signed Report (CONTINUED) FAX: Vilma Ruano MD [place]: St: REG -- Name: INGRIS RUDD [facility] : 1990 Age/S: 28/M [address] [facility] Unit: [id number] Loc: [address].[place], [place]: [place] [address] Acct: [id number] Dis Date: Status: REG ER PHONE #: [phone] Exam Date: 03/27/2019 1623 FAX #: [phone] Reason: ABD PAIN EXAMS: CPT CODE: [id number] CT ABD PELVIS W/CONT 55918 <Continued> 1.7 cm indeterminate low-attenuation structure in posterior right hepatic lobe, correlate with sonography. at 1703 Reported and signed by: Dana Jones M.D. CC: Vilma Steven MD Technologist: JUAN CARL Trnscrd Dt/Tm: 03/27/2019 (1703) t.[email or web address] Orig Print D/T: S: 03/27/2019 (6346 PAGE 2 Signed ReportCOMPREHENSIVE METABOLIC [id number] 16:05:00 Test Item Value Reference Range Interpretation [...] 103 Units/L 50.0-136.0 N code = ALKP) [id number] 16:05:00 Test Item Value Reference Range Interpretation Comments LIPASE (test code = LIP) 56 Units/L 65.0-230.0 L URINALYSIS [id number] 16:01:00 Test Item Value Reference Range Interpretation [...] (test code = 2+ MUCU) COMPREHENSIVE METABOLIC [id number] 16:01:00 Test Item Value Reference Range Interpretation [...] TOTAL (test Units/L 50.0-136.0 code = ALKP) [id number] 16:01:00 Test Item Value Reference Range Interpretation Comments LIPASE (test code = LIP) Units/L 65.0-230.0 CBC W/AUTO [id number] 15:57:00 Test Item Value Reference Range Interpretation [...] = BA#) 0.1 K/mm3 0.0-0.2 N URINALYSIS [id number] 15:54:00 Test Item Value Reference Range Interpretation [...]
[2021-04-02 15:54] LABS: Absolute Lymphocytes (CBC) 0.5 K/uL (0.7-4.9); Basophils % 0.8 % (0-1.3); Hematocrit 42.1 % (39.6-49.0); Lymphocytes % 5.2 % (15.3-44.8); MPV 9.1 fL (7.6-11.3); RBC Red Blood Cell Count 4.96 M/uL (4.33-5.43)
[2021-04-02] MEDS ORDERED: FENTANYL CITR 100 MCG/2 ML ONE (15:56)
[2021-04-02] MEDS ORDERED: LIDOCAINE 1% 20 ML MDV ONE (15:57)
[2021-04-02] MEDS ORDERED: NA CHLORIDE 0.9% 1,000 ML ONE (15:58)
[2021-04-02] MEDS ORDERED: CLINDAMYCIN 600MG/D5W 600 MG/50 ML BAG IV ONE (15:58)
[2021-04-02 16:12] LABS: BUN Blood Urea Nitrogen 15 mg/dL (7-18); Bicarbonate 27 mmol/L (21-32); Glucose Level 77 mg/dL (74-106); Potassium 4.1 mmol/L (3.5-5.1); Sodium Level 138 mmol/L (136-145)
[2021-04-02 16:45] LABS: Protime INR 1.09
[2021-04-02] MEDS ORDERED: LIDOCAINE JELLY 2%- 5 ML TUBE ONE (17:34)
--- NOTE | 2021-04-02 18:15 | EDPHYS ---
Physician Documentation [facility] Name: Talib Oconnell Age: 30 yrs Sex: Male : 1990 Arrival Date: 04/02/2021 Time: 13:47 Bed 26 Private MD: ED Physician Anderson Graf HPI: 04/02 15:30 This 30 yrs old Black Male presents to ER via Ambulatory with complaints of Mouth cp Problem. 15:30 The patient presents with broken tooth/teeth, pain, swelling. cp 15:30 The problem is located in the left upper tooth. cp 15:30 Onset: The symptoms/episode began/occurred 1 week(s) ago, and became worse yesterday. cp 15:30 Duration: The symptoms are continuous, and are steadily getting worse. cp 15:30 Associated signs and symptoms: Pertinent negatives: dysphagia, fever, inability to eat. cp Historical: - Allergies: 13:54 Sulfa (Sulfonamide Antibiotics); tw2 - Home Meds: 13:54 None [Active]; tw2 - PMHx: 13:54 Crohn's; tw2 - PSHx: 13:54 None; tw2 - Immunization history:: Last tetanus immunization: unknown. - Social history:: Smoking status: Patient reports the use of cigarette tobacco products, smokes one pack cigarettes per day. Patient uses street drugs, marijuana, daily, Patient uses street drugs, Methamphetamine (Meth) "used meth 2 days ago". ROS: 15:35 Constitutional: Negative for body aches, chills, fever, poor PO intake. cp 15:35 Eyes: Negative for injury, pain, redness, and discharge. cp 15:35 ENT: Positive for dental pain. 15:35 Cardiovascular: Negative for chest pain, palpitations. 15:35 Respiratory: Negative for cough, shortness of breath, wheezing. 15:35 Abdomen/GI: Negative for abdominal pain, nausea, vomiting, and diarrhea. 15:35 Neuro: Negative for altered mental status, headache, weakness. 15:35 All other systems are negative. Exam: 15:40 Constitutional: The patient appears in no acute distress, alert, awake, non-toxic, well cp developed, well nourished, uncomfortable. 15:40 Head/face: Noted is swelling, that is mild, of the left cheek, tenderness, that is cp moderate, of the left cheek. 15:40 Eyes: Periorbital structures: appear normal, Conjunctiva: normal, no exudate, no injection, Sclera: no appreciated abnormality, Lids and lashes: appear normal, bilaterally. 15:40 ENT: External ear(s): are unremarkable, Ear canal(s): are normal, clear, TM's: dullness, bilaterally, Nose: is normal, Mouth: Lips: moist, Oral mucosa: moist, Posterior pharynx: Airway: no evidence of obstruction, patent, Uvula: midline, Dental exam: abscess, that is moderate, specifically in the upper left first molar (#14), dental caries, that is moderate, diffusely, gum swelling, that is moderate, specifically in the upper left first molar (#14), pain, that is severe, specifically in the upper left first molar (#14), Voice: is normal. 15:40 Neck: ROM/movement: is normal, is supple, without pain, no range of motions limitations, no nuchal rigidity. 15:40 Chest/axilla: Inspection: normal. 15:40 Cardiovascular: Rate: tachycardic, Rhythm: regular. 15:40 Respiratory: the patient does not display signs of respiratory distress, Respirations: normal, no use of accessory muscles, no retractions, labored breathing, is not present. 15:40 Abdomen/GI: Exam negative for discomfort, distension, guarding, Inspection: abdomen appears normal. 15:40 Skin: no rash present. Vital Signs: 13:50 BP 131 / 88; Pulse 100; Resp 18; Temp 97.9(TE); Pulse Ox 100% on R/A; Weight 68.04 kg tw2 (R); Height 5 ft. 8 in. (172.72 cm); Pain 10/10; 17:10 BP 145 / 80; Pulse 82; Resp 22; Pulse Ox 98% on R/A; Pain 10/10; ap3 13:50 Body Mass Index 22.81 (68.04 kg, 172.72 cm) tw2 MDM: 15:23 Patient medically screened. cp 17:35 Physician consultation: Bird Casillas DDS was called at 17:35, was contacted at 17:35, cp regarding consult, patient's condition, and will see patient in office, tomorrow. 18:13 Data reviewed: vital signs, nurses notes, lab test result(s), and as a result, I will cp discharge patient. 18:13 Counseling: I had a detailed discussion with the patient and/or guardian regarding: the cp historical points, exam findings, and any diagnostic results supporting the discharge/admit diagnosis, lab results, the need for outpatient follow up, for definitive care, maxillary/facial surgeon, to return to the emergency department if symptoms worsen or persist or if there are any questions or concerns that arise at home. Response to treatment: the patient's symptoms have mildly improved after treatment. ED course: VSS. Patient intolerant of attempt to drain dental abscess. Patient unable to tolerate injection of anesthetic. Consult with DR Casillas who will see patient in clinic tomorrow afternoon. Patient instructed to contact office of DR Casillas in morning for appointment. 04/02 15:26 Order name: CBC with Diff; Complete Time: 16:35 cp 04/02 16:35 Interpretation: Normal except: CRUZ% 78.8; LYM% 5.2; MN% 12.9; NEUT A 8.3. 04/02 15:26 Order name: BMP; Complete Time: 16:35 cp 04/02 15:26 Order name: PT-INR; Complete Time: 16:46 cp 04/02 16:46 Interpretation: Normal except: PT 12.6. 04/02 15:26 Order name: IV; Complete Time: 15:39 cp 04/02 16:01 Order name: Labs - recollect needed: blue top hemolyzed; Complete Time: 16:34 iw Administered Medications: 15:46 Drug: fentaNYL (PF) 25 mcg {Note: patient is awake, alert complains of pain 10/10.} ap3 Route: IVP; Site: right antecubital; 16:33 Follow up: Response: No adverse reaction; Pain is decreased ap3 15:46 Drug: Clindamycin 600 mg Route: IVPB; Infused Over: 30 mins; Site: right antecubital; ap3 18:31 Follow up: IV Status: Completed infusion ap3 15:47 Drug: NS 0.9% 1000 ml Route: IV; Rate: 1 bolus; Site: right antecubital; ap3 16:34 Follow up: IV Status: Completed infusion; IV Intake: 1000ml ap3 16:44 Drug: Ativan (LORazepam) 0.5 mg Route: IVP; Site: right antecubital; ap3 17:01 Follow up: Response: No adverse reaction; Anxiety unchanged ap3 17:05 Drug: fentaNYL (PF) 25 mcg Route: IVP; Site: right antecubital; ap3 17:20 Follow up: Response: No adverse reaction; Pain is decreased; RASS: Alert and Calm (0) ap3 18:32 Follow up: Response: No adverse reaction; Pain is decreased ap3 17:20 Drug: Lidocaine Gel 2 % 1 application Route: Mucous Membrane; ap3 18:31 Follow up: Response: No adverse reaction ap3 18:31 Not Given (Patient Refused): Lidocaine-Epinephrine -1%: (1:100,000) 5 ml 20 ml ap3 Infiltration once; to bedside 18:31 Not Given (Patient Refused): Marcaine (bupivacaine) (0.5 %) 5 ml 10 ml Infiltration onceap3 Disposition: 18:35 Chart complete. 04/03 07:17 Co-signature as Attending Physician, Anderson Graf MD I agree with the assessment and kdr plan of care. Disposition: 04/02/21 18:14 Discharged to Home. Impression: Disorder of teeth and supporting structures, unspecified, Cellulitis of face. - Condition is Stable. - Discharge Instructions: Cellulitis, Adult, Dental Abscess. - Prescriptions for Clindamycin HCl 300 mg Oral Capsule - take 1 capsule by ORAL route every 6 hours for 10 days; 40 capsule. Tylenol- Codeine #3 300-30 mg Oral Tablet - take 2 tablets by ORAL route every 6-8 hours As needed; 20 tablet. Zofran 4 mg Oral Tablet - take 1 tablet by ORAL route every 12 hours As needed; 20 tablet. - Medication Reconciliation Form, Thank You Letter, Antibiotic Education, Prescription Opioid Use form. - Follow up: Bird Casillas DDS; When: Tomorrow; Reason: Recheck today's complaints. - Problem is new. - Symptoms have improved. Signatures: Dispatcher [employer] EDMS Anderson Graf MD MD kdr Meliza Segovia RN RN iw Page, Corey, PA PA Katlin Richardson RN RN tw2 Sabina Mejia RN RN ap3 Corrections: (The following items were deleted from the chart) 04/02 17:50 17:27 CORONAVIRUS+MR.LAB.BRZ ordered. EDMS EDMS 18:32 18:14 04/02/2021 18:14 Discharged to Home. Impression: Disorder of teeth and supporting ap3 structures, unspecified; Cellulitis of face. Condition is Stable. Forms are Medication Reconciliation Form, Thank You Letter, Antibiotic Education, Prescription Opioid Use. Follow up: Bird Casillas; When: Tomorrow; Reason: Recheck today's complaints. Problem is new. Symptoms have improved. cp
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
[2021-04-02 19:49] VITALS: TEMP 97.9
[2021-04-02 19:51] VITALS: BP 145/80; O2SAT 98
== END 2021-04-02 18:32 | disposition home or self-care (01) ==
LOC: ER 13:44
DX: L03.211 Cellulitis of face (principal); F17.210 Nicotine dependence, cigarettes, uncomplicated; Z88.2 Allergy status to sulfonamides
CPT/HCPCS: 36415; 80048; 85025; 85610; J3010; J7030; U0003

== ENCOUNTER 2025-01-30 01:37 | Observation (INO) | payer OTHER, SELFPAY ==
--- OUTSIDE RECORDS SUMMARY | 2025-01-30 01:45 | XMS REPORT | Continuity of Care Document ---
Author Name Unknown Address [address] [facility] [place] [address] [facility] Address [address] 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 Phone Unavailable Unavailable Unavailable Payers Payer Name Policy Type Policy Number Effective Date Expirati on Date Source Allergies, Adverse Reactions, Alerts Allergy Name Allergy Type Status Severity Reaction(s) Onset Date Inactive Date Treating Clinician Comments Source No Known Allergie s DA Active U 03-27 00:00: 00 [facility] No Known Drug Allergie s DA Active U 03-27 00:00: 00 [facility] No Known Contrast Allergie s DA Active U 2007-10 00:00: 00 [facility] No Known Drug Allergie s DA Active U 2007-10 00:00: 00 [facility] No Known Food Allergie s DA Active U 2007-10 00:00: 00 [facility] No Known Other Allergie s DA Active U 2007-10 00:00: 00 [facility] Results Test Description Test Time Test Comments Results Resul t Comments Source - XR UGI W/SMALL BOWEL 2019-03-30 09:49:00 FAX: Jv Preito [phone] [place]: St: [facility] FAX: Y Eliud Sierra MD [phone] Name: TALIB OCONNELL [facility] : 1990 Age/S: 28/M [address] [facility] [employer] [facility] Unit #: [id number] Loc: [address] [place]: [place] [address] Acct: [id number] Dis Date: Status: ADM IN PHONE #: [phone] Exam Date: 03/30/2019927 FAX #: [phone] Reason: r/o TI stricture EXAMS: CPT CODE: [id number] XR UGI W/SMALL BOWEL 22371 Dictation location: U19. UPPER GI SERIES WITH [...] including infection may also be considered. at 0949 Reported and signed by: Jazmyne Alexis M.D. CC: Jv Peña MD; Eliud Sierra MD Technologist: SELENE LEAHY [facility] Date/Time/By: 03/30/2019 (0949) : By: [email or web address] PAGE 1 Signed Report FAX: Jv Prieto [phone] [place]: St: ADM FAX: Eliud Kc MD [phone] Name: TALIB OCONNELL [facility] : 1990 Age/S: 28/M [address] [facility] Unit #: [id number] Loc: [address] [place], [place]: [place] [id number] Acct: [id number] Dis Date: Status: ADM IN PHONE #: [phone] Exam Date: 03/30/2019927 FAX #: [phone] Reason: r/o TI stricture EXAMS: CPT CODE: [id number] XR UGI W/SMALL BOWEL 03185 (Continued) Orig Print D/T: S: 03/30/2019 (0952) PAGE 2 Signed Report COMPREHENSIVE METABOLIC [id number] 05:24:00* Test Item Value Reference Range Interpretation Comme nts SODIUM (test code = NA) 140 mmol/l 134.0-147.0 N POTASSIUM (test code = K) 3.6 mmol/L 3.6-5.2 N CHLORIDE (test code = CL) 107 mmol/l 98.0-107.0 N CARBON DIOXIDE (test code = CO2) 24.4 mmol/l 21.0-33.0 N ANION GAP (test code = GAP) 12.2 0-20 N GLUCOSE (test code = GLU) 75 mg/dl 70.0-110.0 N BLOOD UREA NITROGEN (test co de = BUN) 6 mg/dl 7.0-18.0 L CREATININE (test code = CREAT) 1.04 mg/dL 0.60-1.30 N GFR NON BLACK (test code = GFRNONBLACK) 91 mL/min 110-120 L GFR BLACK (test code = GFRBLACK) 110 mL/min 133-145 L TOTAL PROTEIN (test code = PROT) 6.4 gm/dL 6.4-8.2 N ALBUMIN (test code = ALB) 3.0 gm/dl 3.2-4.7 L CALCIUM (test code = CA) 8.2 mg/dl 8.0-10.5 N BILIRUBIN TOTAL (test code = BILT) 0.5 mg/dl 0.0-1.0 N SGOT/AST (test code = AST) 11 Units/L 15.0-37.0 L SGPT/ALT (test code = ALT) 16 Units/L 12.0-78.0 N ALKALINE PHOSPHATASE TOTAL ( test code = ALKP) 65 Units/L 50.0-136.0 N [id number] 05:24:00* Test Item Value Reference Range Interpretation Comme nts MAGNESIUM (test code = MAG) 2.2 mg/dl 1.8-2.4 N COMPREHENSIVE METABOLIC [id number] 05:27:00* Test Item Value Reference Range Interpretation Comme nts SODIUM (test code = NA) 142 mmol/l 134.0-147.0 N POTASSIUM (test code = K) 3.8 mmol/L 3.6-5.2 N CHLORIDE (test code = CL) 109 mmol/l 98.0-107.0 H CARBON DIOXIDE (test code = CO2) 25.7 mmol/l 21.0-33.0 N ANION GAP (test code = GAP) 11.1 0-20 N GLUCOSE (test code = GLU) 79 mg/dl 70.0-110.0 N BLOOD UREA NITROGEN (test co de = BUN) 12 mg/dl 7.0-18.0 N CREATININE (test code = CREAT) 1.08 mg/dL 0.60-1.30 N GFR NON BLACK (test code = GFRNONBLACK) 87 mL/min 110-120 L GFR BLACK (test code = GFRBLACK) 105 mL/min 133-145 L TOTAL PROTEIN (test code = PROT) 5.7 gm/dL 6.4-8.2 L ALBUMIN (test code = ALB) 2.8 gm/dl 3.2-4.7 L CALCIUM (test code = CA) 7.7 mg/dl 8.0-10.5 L BILIRUBIN TOTAL (test code = BILT) 0.6 mg/dl 0.0-1.0 N SGOT/AST (test code = AST) 8 Units/L 15.0-37.0 L SGPT/ALT (test code = ALT) 14 Units/L 12.0-78.0 N ALKALINE PHOSPHATASE TOTAL ( test code = ALKP) 62 Units/L 50.0-136.0 N [id number] 05:27:00* Test Item Value Reference Range Interpretation Comme nts MAGNESIUM (test code = MAG) 1.8 mg/dl 1.8-2.4 N CBC W/AUTO [id number] 05:13:00* Test Item Value Reference Range Interpretation Comme nts WHITE BLOOD CELL (test code = WBC) 4.5 K/mm3 4.5-11.0 N RED BLOOD CELL (test code = RBC) 4.11 M/mm3 4.40-5.90 L HEMOGLOBIN (test code = HGB) 11.9 gm/dL 13.0-17.0 L HEMATOCRIT (test code = HCT) 37.7 % 36.0-48.0 N MEAN CELL VOLUME (test code = MCV) 91.7 UM3 80.0-94.0 N MEAN CELL HGB (test code = MCH) 29.0 UUG 25.5-32.5 N MEAN CELL HGB CONCETRATION (test code = MCHC) 31.6 gm/dL 29.0-35.5 N RED CELL DISTRIBUTION WIDTH (test code = RDW) 14.2 % 11.5-15.0 N RED CELL DISTRIBUTION WIDTH SD (test code = RDW-SD) 47.9 fL 34.8-50.2 N PLATELET COUNT (test code = PLT) 232 K/mm3 150-400 N MEAN PLATELET VOLUME (test c ode = MPV) 11.8 fl 7.4-10.4 H NEUTROPHIL % (test code = NT%) 57.5 % 49.0-76.0 N IMMATURE GRANULOCYTE % (test code = IG%) 0.2 % 0.0-0.4 N LYMPHOCYTE % (test code = LY%) 25.6 [...] K/mm3 0.0-0.2 N - CT ABD PELVIS [id number] 17:03:00FAX: Vilma Ruano MD [place]: St: REG Name: TALIB OCONNELL [facility] : 1990 Age/S: 28/M [address] [facility] Unit: [id number] [place]: [place] [address] Acct: [id number] Dis Date: Status: REG ER PHONE #: [phone] Exam Date: 03/27/2019 1628 FAX #: [phone] Reason: ABD PAIN EXAMS: CPT CODE: [id number] CT ABD PELVIS W/CONT 08543 EXAMINATION: - CT ABD PELVIS W/CONT. LOCATION: [...] proximal small bowel fecalization and dilatation at 3.4 cm. There is thickening of ascending, transverse and descending colon as well. Nonvisualization of appendix. No abdominal or pelvic bulky lymphadenopathy is identified. No pneumoperitoneum or free fluid. Visualized osseous structures appear unremarkable. IMPRESSION: Terminal ileum thickening and hyperenhancement, aswell as thickening of ascending, transverse and descending colon, findings are most suggestive of inflammatory etiology such as Crohn's/UC. Recommend GI consultation and colonoscopy when clinically feasible. Fecalization and dilatation of jejunal bowel loops at 3.4 cm, indicative of bowel obstruction. PAGE 1 Signed Report (CONTINUED) FAX: Vilma Ruano MD [place]: St: REG Name: TALIB OCONNELL [facility] : 1990 Age/S: 28/M [address] [facility] Unit: [id number] Loc: E.[place], [place]: [place] [address] Acct: [id number] Dis Date: Status: REG ER PHONE #: [phone] Exam Date: 03/27/2019 1628 FAX #: [phone] Reason: ABD PAIN EXAMS: CPT CODE: [id number] CT ABD PELVISW/CONT 47597 (Continued) 1.7 cm indeterminate low- attenuation structure in posterior right hepatic lobe, correlate with sonography. Electronically Signed by Cecily Milton on 019 at 1703 Reported and signed by: Dana Milton M.D. CC: Vilma Steven MD Technologist: JUAN CARL Trnscrd Dt/Tm: 03/27/2019 (1703) [email or web address] Orig Print D/T: S: 03/27/2019 (1706 PAGE 2 Signed Report COMPREHENSIVE METABOLIC [id number] 16:05:00* Test Item Value Reference Range Interpretation Comme nts SODIUM (test code = NA) 136 mmol/l 134.0-147.0 N POTASSIUM (test code = K) 3.5 mmol/L 3.6-5.2 L CHLORIDE (test code = CL) 101 mmol/l 98.0-107.0 N CARBON DIOXIDE (test code = CO2) 26.3 mmol/l 21.0-33.0 N ANION GAP (test code = GAP) 12.2 0-20 N GLUCOSE (test code = GLU) 92 mg/dl 70.0-110.0 N BLOOD UREA NITROGEN (test co de = BUN) 19 mg/dl 7.0-18.0 H CREATININE (test code = CREAT) 1.13 mg/dL 0.60-1.30 N GFR NON BLACK (test code = GFRNONBLACK) 83 mL/min 110-120 L GFR BLACK (test code = GFRBLACK) 100 mL/min 133-145 L TOTAL PROTEIN (test code = PROT) 8.8 GM/DL 6.0-8.1 H ALBUMIN (test code = ALB) 4.4 gm/dL 3.2-4.7 N CALCIUM (test code = CA) 9.7 mg/dl 8.0-10.5 N BILIRUBIN TOTAL (test code = BILT) 0.7 mg/dl 0.0-1.0 N SGOT/AST (test code = AST) 13 Units/L 15.0-37.0 L SGPT/ALT (test code = ALT) 19 Units/L 12.0-78.0 N ALKALINE PHOSPHATASE TOTAL ( test code = ALKP) 103 Units/L 50.0-136.0 N [id number] 16:05:00* Test Item Value Reference Range Interpretation Comme nts LIPASE (test code = LIP) 56 Units/L 65.0-230.0 L URINALYSIS [id number] 16:01:00* Test Item Value Reference Range Interpretation Comme nts UA COLOR (test code = COLU) YELLOW UA APPEARANCE (test code = APPU) CLEAR UA GLUCOSE DIPSTICK (test code = DGLUU) NORMAL mg/dl NORMAL UA BILIRUBIN DIPSTICK (test code = BILU) NEGATIVE mg/dL NEGATIVE UA KETONE DIPSTICK (test code = KETU) NEGATIVE mg/dl NEGATIVE UA SPECIFIC GRAVITY (test code = SGU) 1.010 1.000-1.030 UA BLOOD DIPSTICK (test code = JOHANA) NEGATIVE [place]/micL NEGATIVE UA PH DIPSTICK (test code = TIRSO) 8.0 5.0-9.0 UA PROTEIN DIPSTICK (test code = PROU) 15 mg/dl mg/dl NEGATIVE A UA UROBILINIOGEN DIPSTICK (test code = URO) NORMAL mg/dl NORMAL UA NITRITE DIPSTICK (test code = JOSE) NEGATIVE NEGATIVE UA LEUKOCYTE ESTERASE DIPSTICK (test code = LEUU) 25 Bambi/micL Bambi/micL NEGATIVE A UA WBC (test code = WBCU) 5-10/HPF WBC/HPF NONE UA RBC (test code = RBCU) 0-2 RBC/HPF 0-3 UA EPITHELIAL CELLS (test code = EPIU) 5-10 EPI/HPF 0-3 A UA BACTERIA (test code = BACU) FEW NONE UA RENAL CELLS (test code = NETO) FEW UA MUCUS (test code = MUCU) 2+ COMPREHENSIVE METABOLIC [id number] 16:01:00* Test Item Value Reference Range Interpretation Comme nts SODIUM (test code = NA) 136 mmol/l 134.0-147.0 N POTASSIUM (test code = K) 3.5 mmol/L 3.6-5.2 L CHLORIDE (test code = CL) 101 mmol/l 98.0-107.0 N CARBON DIOXIDE (test code = CO2) 26.3 mmol/l 21.0-33.0 N ANION GAP (test code = GAP) 12.2 0-20 N GLUCOSE (test code = GLU) mg/dl 70.0-110.0 BLOOD UREA NITROGEN (test co de = BUN) mg/dl 7.0-18.0 CREATININE (test code = CREAT) mg/dL 0.60-1.30 GFR NON BLACK (test code = GFRNONBLACK) mL/min 110-120 GFR BLACK (test code = GFRBLACK) mL/min 133-145 TOTAL PROTEIN (test code = PROT) gm/dL 6.4-8.2 ALBUMIN (test code = ALB) gm/dl 3.2-4.7 CALCIUM (test code = CA) mg/dl 8.0-10.5 BILIRUBIN TOTAL (test code = BILT) mg/dl 0.0-1.0 SGOT/AST (test code = AST) Units/L 15.0-37.0 SGPT/ALT (test code = ALT) Units/L 12.0-78.0 ALKALINE PHOSPHATASE TOTAL ( test code = ALKP) Units/L 50.0-136.0 [id number] 16:01:00* Test Item Value Reference Range Interpretation Comme nts LIPASE (test code = LIP) Units/L 65.0-230.0 CBC W/AUTO [id number] 15:57:00* Test Item Value Reference Range Interpretation Comme nts WHITE BLOOD CELL (test code = WBC) 7.5 K/mm3 4.5-11.0 N RED BLOOD CELL (test code = RBC) 5.47 M/mm3 4.40-5.90 N HEMOGLOBIN (test code = HGB) 15.6 gm/dL 13.0-17.0 N HEMATOCRIT (test code = HCT) 48.7 % 36.0-48.0 H MEAN CELL VOLUME (test code = MCV) 89.0 UM3 80.0-94.0 N MEAN CELL HGB (test code = MCH) 28.5 UUG 25.5-32.5 N MEAN CELL HGB CONCETRATION (test code = MCHC) 32.0 gm/dL 29.0-35.5 N RED CELL DISTRIBUTION WIDTH (test code = RDW) 14.0 % 11.5-15.0 N RED CELL DISTRIBUTION WIDTH SD (test code = RDW-SD) 45.5 fL 34.8-50.2 N PLATELET COUNT (test code = PLT) 302 K/mm3 150-400 N MEAN PLATELET VOLUME (test c ode = MPV) 11.1 fl 7.4-10.4 H NEUTROPHIL % (test code = NT%) 77.6 % 49.0-76.0 H IMMATURE GRANULOCYTE % (test code = IG%) 0.3 % 0.0-0.4 N LYMPHOCYTE % (test code = LY%) 11.8 % 23.0-38.0 L MONOCYTE % (test code = MO%) 8.8 % 1.0-10.0 N EOSINOPHIL % (test code = EO%) 0.8 % 1.0-5.0 L BASOPHIL % (test code = BA%) 0.7 % 0.0-1.0 N NEUTROPHIL # (test code = NT#) 5.9 K/mm3 2.4-6.3 N IMMATURE GRANULOCYTE # (test code = IG#) 0.02 x10 3/uL 0.00-0.07 N LYMPHOCYTE # (test code = LY#) 0.9 K/mm3 1.2-4.0 L MONOCYTE # (test code = MO#) 0.7 K/mm3 0.0-0.6 H EOSINOPHIL # (test code = EO#) 0.1 K/MM3 0.0-0.7 N BASOPHIL # (test code = BA#) 0.1 K/mm3 0.0-0.2 N URINALYSIS [id number] 15:54:00* Test Item Value Reference Range Interpretation Comme nts UA COLOR (test code = COLU) YELLOW UA APPEARANCE (test code = APPU) CLEAR UA GLUCOSE DIPSTICK (test code = DGLUU) NORMAL mg/dl NORMAL UA BILIRUBIN DIPSTICK (test code = BILU) NEGATIVE mg/dL NEGATIVE UA KETONE DIPSTICK (test code = KETU) NEGATIVE mg/dl NEGATIVE UA SPECIFIC GRAVITY (test code = SGU) 1.010 1.000-1.030 UA BLOOD DIPSTICK (test code = JOHANA) NEGATIVE [place]/micL NEGATIVE UA PH DIPSTICK (test code = TIRSO) 8.0 5.0-9.0 UA PROTEIN DIPSTICK (test code = PROU) 15 mg/dl mg/dl NEGATIVE A UA UROBILINIOGEN DIPSTICK (test code = URO) NORMAL mg/dl NORMAL UA NITRITE DIPSTICK (test code = JOSE) NEGATIVE NEGATIVE UA LEUKOCYTE ESTERASE DIPSTICK (test code = LEUU) 25 Bambi/micL Bambi/micL NEGATIVE A UA WBC (test code = WBCU) WBC/HPF NONE UA RBC (test code = RBCU) RBC/HPF 0-3 UA EPITHELIAL CELLS (test code = EPIU) EPI/HPF 0-3 UA BACTERIA (test code = BACU) NONE Notes Date/Time Note Provider Source 2019-03-30 17:26:00 [id number] [place] [address] PATIENT NAME: TALIB OCONNELL ADMIT DATE: 03/27/19 ACCOUNT NO: [id number] DISCHARGE DATE: 03/30/19 ROOM NO: E.254 REPORT TYPE: PROGRESS NOTE DATE OF : [birth year] AGE: 28 SEX: M ADMITTING PHYSICIAN:Jv Peña MD ATTENDING PHYSICIAN:Jv Peña MD DATE: 03/30/2019 CHIEF COMPLAINT: None. PRESENT ILLNESS: The patient is lying in bed, sleeping soundly. He states he no longer has abdominal pain and he is tolerating his diet well. The patient had his colonoscopy done today and his colon was completely normal. The endoscopist was unable to access his terminal ileum. The colonoscopy was then followed by an upper GI with a small bowel follow-through that showed rapid transit seen through the small bowel, less than 10 minutes. There was minimal GE reflux. There was continued thickening of the terminal ileum similar to prior CT on 03/27/2019. Findings may relate to Crohn's disease. Other etiologies including infection may also be considered. LABORATORY DATA: White count today is 4.5, hemoglobin 12.6, hematocrit 40.2, platelet count 253,000. ASSESSMENT AND PLAN: I had a lengthy discussion with the patient in order to inform him that he may very well have Crohn's enterocolitis. I suggested to him that he visit with his [facility] in order to be fully evaluated by an manager language and a scarfer and worked to prove that he does or does not have Crohn's. I informed him of the seriousness of not being fully diagnosed over time and he stated he understood. I also suggested to him that he get a good job with medical benefits and he seems to understand. Dictated By: Francine Ledezma MD WT: PN:SUSANA/ROSLYN/NTS Conf#: [id number]/DID#: [id number] Authenticated by Francine Ledezma MD On 04/16/2019 07:56:51 AM at 0757 PATIENT NAME: TALIB OCONNELL [facility] 2019-03-30 11:47:00 [facility] ([facility]) Discharge Summary REPORT#:[id number] REPORT STATUS: Signed DATE:03/30/19 TIME: 1147 PATIENT: TALIB OCONNELL UNIT #: [id number] ROOM/BED: [place] [address] : [birth year] AGE: 28 SEX: M ATTEND: Jv Peña MD ADM AUTHOR: Gerda Patino * ALL edits or amendments must be made on the electronic/computer document * PCP PCP Discharge to: home General Information Problem List/A P: 1. Abdominal pain 2. Colonic obstruction 3. Nausea vomiting Date of admission: Observation Start Date: Date of admission: 03/27/19 Date of discharge: 03/30/19 Admission diagnosis: Constipation Discharge diagnosis: Constipation [facility]hns [facility] course: 1. Colonic obstruction -Continue Zosyn 3.375g -Continue IVF (NaCl @ 50mL/hr) -CT scan showed obstruction with probable inflammatory etiology -Having bowel movements, last one was yesterday -GI consulted for further workup, colonoscopy recommended -[facility] colonoscopy prep to be started this afternoon, colonoscopy scheduled tomorrow, still on zosyn (03/29) 2. Abdominal pain -Continue morphine PRN -Continue Zofran 4mg Q6H PRN -Pain controlled -Continued pain control (03/29) 3. Nausea -Continue zofran 4mg -Stabilized 4. Vomiting -Last episode was yesterday -Has NG tube in, blood reported by pt that was seen yesterday -Stabilized 5. UTI, asymptomatic -UA showed positive leuk esterase and few WBCs 6. Possible Crohn's/UC -CT scan showed possible inflammatory etiology -GI consult on board for further workup -Colonoscopy to be done tomorrow (03/29) -Negative C-scopy but upper GI continues to suggest Crohns. Pt to be DC on Prednisone taper. F/U as outpt. GI has cleared for DC. Pt given education material. Pt. condition on discharge: improved, stable Med Rec Med Rec Discharge meds: Start taking the following new medications: predniSONE (predniSONE) 10 MG TAB 10 MILLIGRAM ORAL DAILY. Qty = 63 No Refills Instructions: 4 tabs po daily x 7 days, then 2 tabs po daily x 14 days, then 1 tab po daily x 7 days Dispense: QS traMADol (ULTRAM) 50 MG TAB 50 MILLIGRAM ORAL EVERY 4 HOURS NEEDED. as needed for Pain Qty = 30 No Refills Discharge Instructions Diet: bland Activity: as tolerated Additional instructions: PCP [address] Sierra 2 weeks Prescriptions: on chart Discharge management: face to face encounter, DC time 35 min Follow-up Appointments PCP: PCP: No Primary Care Physician Objective VS/I O Last Documented: Result Date Time Pulse Ox 100 03/30 1052 B/P 120/74 03/30 1052 B/P Mean 89.5 03/30 1052 O2 Delivery Room air 03/30 1052 Temp 97.9 03/30 1052 Pulse 61 03/30 1052 Resp 18 03/30 1052 O2 Flow Rate 6.134525 03/30 0730 24 hour I O ending at 0700: 03/30 0700 03/29 1900 Intake Total 1900.00 120 Output Total 325 Balance 1575.00 120 Intake, IV 700.00 Intake, Oral 1200 120 Output, Urine 325 General appearance: alert, awake, oriented, no acute distress, pleasant Head/Eyes: atraumatic, EOMI, normocephalic ENT: normal nose, normal sinus, moist mucosal membranes Neck: non-tender, no lymphadenopathy, no masses or swelling Cardiovascular: regular rate rhythm, normal heart sounds Respiratory: clear to auscultation, no distress, no tenderness, aerating well GI: soft, non-tender, no guarding, no rebound Extremities: moves all, no edema-all extremities, no calf tenderness Musculoskeletal: no CVA tenderness, no midline vertebral tend, no muscle spasm Neuro/INDUSTRIAL COOK: alert, oriented X 3, normal speech Skin: dry, intact, no gross abnormalities Results Findings/Data: Laboratory Tests: 03/30 0433 Chemistry Sodium (134.0 - 147.0 mmol/l) 140 Potassium (3.6 - 5.2 mmol/L) 3.6 Chloride (98.0 - 107.0 mmol/l) 107 Carbon Dioxide (21.0 - 33.0 mmol/l) 24.4 Anion Gap (0 - 20) 12.2 BUN (7.0 - 18.0 mg/dl) 6 L Creatinine (0.60 - 1.30 mg/dL) 1.04 Est GFR ( Amer) (133 - 145 mL/min) 110 L Est GFR (Non-Af Amer) (110 - 120 mL/min) 91 L Glucose (70.0 - 110.0 mg/dl) 75 Calcium (8.0 - 10.5 mg/dl) 8.2 Magnesium (1.8 - 2.4 mg/dl) 2.2 Total Bilirubin (0.0 - 1.0 mg/dl) 0.5 AST (15.0 - 37.0 Units/L) 11 L ALT (12.0 - 78.0 Units/L) 16 Total Alk Phosphatase (50.0 - 136.0 Units/L) 65 Total Protein (6.4 - 8.2 gm/dL) 6.4 Albumin (3.2 - 4.7 gm/dl) 3.0 L Hematology WBC (4.5 - 11.0 K/mm3) 4.5 RBC (4.40 - 5.90 M/mm3) 4.39 L Hgb (13.0 - 17.0 gm/dL) 12.6 L Hct (36.0 - 48.0 %) 40.2 MCV (80.0 - 94.0 UM3) 91.6 MCH (25.5 - 32.5 UUG) 28.7 MCHC (29.0 - 35.5 gm/dL) 31.3 RDW (11.5 - 15.0 %) 13.9 Plt Count (150 - 400 K/mm3) 253 MPV (7.4 - 10.4 fl) 11.6 H Neut % (Auto) (49.0 - 76.0 %) 55.7 Lymph % (Auto) (23.0 - 38.0 %) 26.8 Leslie % (Auto) (1.0 - 10.0 %) 12.9 H Eos % (Auto) (1.0 - 5.0 %) 3.3 Baso % (Auto) (0.0 - 1.0 %) 1.1 H Neut # (Auto) (2.4 - 6.3 K/mm3) 2.5 Lymph # (Auto) (1.2 - 4.0 K/mm3) 1.2 Leslie # (Auto) (0.0 - 0.6 K/mm3) 0.6 Eos # (Auto) (0.0 - 0.7 K/MM3) 0.2 Baso # (Auto) (0.0 - 0.2 K/mm3) 0.1 Immature Gran % (0.0 - 0.4 %) 0.2 Immature Gran # (0.00 - 0.07 x10 3/uL) 0.01 Radiology data: Recent Impressions: RADIOLOGY - XR UGI W/SMALL BOWEL 03/30 0928 Report Impression - Status: SIGNED Entered: 03/30/2019 0952 IMPRESSION: Rapid transit seen through the small bowel, less than 10 minutes. Minimal gastroesophageal reflux. Continued thickening of the terminal ileum similar to prior CT on 03/27/19. Findings may relate to Crohn's disease. Other etiologies including infection may also be considered. Impression By: Hang7 John Alexis M.D. at 1150 RPT #:[id number] END OF REPORT [facility] 2019-03-30 11:47:00 [facility] ([facility]) Discharge Summary REPORT#:[id number] REPORT STATUS: Signed DATE:03/30/19 TIME: 1147 PATIENT: TALIB OCONNELL UNIT #: [id number] ROOM/BED: [place] [address] : [birth year] AGE: 28 SEX: M ATTEND: Jv Peña MD ADM AUTHOR: Gerda Patino * ALL edits or amendments must be made on the electronic/computer document * PCP PCP Discharge to: home General Information Problem List/A P: 1. Abdominal pain 2. Colonic obstruction 3. Nausea vomiting Date of admission: Observation Start Date: Date of admission: 03/27/19 Date of discharge: 03/30/19 Admission diagnosis: Constipation Discharge diagnosis: Constipation [facility] course: 1. Colonic obstruction -Continue Zosyn 3.375g -Continue IVF (NaCl @ 50mL/hr) -CT scan showed obstruction with probable inflammatory etiology -Having bowel movements, last one was yesterday -GI consulted for further workup, colonoscopy recommended -[facility] colonoscopy prep to be started this afternoon, colonoscopy scheduled tomorrow, still on zosyn (03/29) 2. Abdominal pain -Continue morphine PRN -Continue Zofran 4mg Q6H PRN -Pain controlled -Continued pain control (03/29) 3. Nausea -Continue zofran 4mg -Stabilized 4. Vomiting -Last episode was yesterday -Has NG tube in, blood reported by pt that was seen yesterday -Stabilized 5. UTI, asymptomatic -UA showed positive leuk esterase and few WBCs 6. Possible Crohn's/UC -CT scan showed possible inflammatory etiology -GI consult on board for further workup -Colonoscopy to be done tomorrow (03/29) -Negative C-scopy but upper GI continues to suggest Crohns. Pt to be DC on Prednisone taper. F/U as outpt. GI has cleared for DC. Pt given education material. Pt. condition on discharge: improved, stable Med Rec Med Rec Discharge meds: Start taking the following new medications: predniSONE (predniSONE) 10 MG TAB 10 MILLIGRAM ORAL DAILY. Qty = 63 No Refills Instructions: 4 tabs po daily x 7 days, then 2 tabs po daily x 14 days, then 1 tab po daily x 7 days Dispense: QS traMADol (ULTRAM) 50 MG TAB 50 MILLIGRAM ORAL EVERY 4 HOURS NEEDED. as needed for Pain Qty = 30 No Refills Discharge Instructions Diet: bland Activity: as tolerated Additional instructions: PCP [address] Sierra 2 weeks Prescriptions: on chart Discharge management: face to face encounter, DC time 35 min Follow-up Appointments PCP: PCP: No Primary Care Physician Objective VS/I O Last Documented: Result Date Time Pulse Ox 100 03/30 1052 B/P 120/74 03/30 1052 B/P Mean 89.5 03/30 1052 O2 Delivery Room air 03/30 1052 Temp 97.9 03/30 1052 Pulse 61 03/30 1052 Resp 18 03/30 1052 O2 Flow Rate [id number] 03/30 0730 24 hour I O ending at 0700: 03/30 0700 03/29 1900 Intake Total 1900.00 120 Output Total 325 Balance 1575.00 120 Intake, IV 700.00 Intake, Oral 1200 120 Output, Urine 325 General appearance: alert, awake, oriented, no acute distress, pleasant Head/Eyes: atraumatic, EOMI, normocephalic ENT: normal nose, normal sinus, moist mucosal membranes Neck: non-tender, no lymphadenopathy, no masses or swelling Cardiovascular: regular rate rhythm, normal heart sounds Respiratory: clear to auscultation, no distress, no tenderness, aerating well GI: soft, non-tender, no guarding, no rebound Extremities: moves all, no edema-all extremities, no calf tenderness Musculoskeletal: no CVA tenderness, no midline vertebral tend, no muscle spasm Neuro/INDUSTRIAL COOK: alert, oriented X 3, normal speech Skin: dry, intact, no gross abnormalities Results Findings/Data: Laboratory Tests: 03/30 0433 Chemistry Sodium (134.0 - 147.0 mmol/l) 140 Potassium (3.6 - 5.2 mmol/L) 3.6 Chloride (98.0 - 107.0 mmol/l) 107 Carbon Dioxide (21.0 - 33.0 mmol/l) 24.4 Anion Gap (0 - 20) 12.2 BUN (7.0 - 18.0 mg/dl) 6 L Creatinine (0.60 - 1.30 mg/dL) 1.04 Est GFR ( Amer) (133 - 145 mL/min) 110 L Est GFR (Non-Af Amer) (110 - 120 mL/min) 91 L Glucose (70.0 - 110.0 mg/dl) 75 Calcium (8.0 - 10.5 mg/dl) 8.2 Magnesium (1.8 - 2.4 mg/dl) 2.2 Total Bilirubin (0.0 - 1.0 mg/dl) 0.5 AST (15.0 - 37.0 Units/L) 11 L ALT (12.0 - 78.0 Units/L) 16 Total Alk Phosphatase (50.0 - 136.0 Units/L) 65 Total Protein (6.4 - 8.2 gm/dL) 6.4 Albumin (3.2 - 4.7 gm/dl) 3.0 L Hematology WBC (4.5 - 11.0 K/mm3) 4.5 RBC (4.40 - 5.90 M/mm3) 4.39 L Hgb (13.0 - 17.0 gm/dL) 12.6 L Hct (36.0 - 48.0 %) 40.2 MCV (80.0 - 94.0 UM3) 91.6 MCH (25.5 - 32.5 UUG) 28.7 MCHC (29.0 - 35.5 gm/dL) 31.3 RDW (11.5 - 15.0 %) 13.9 Plt Count (150 - 400 K/mm3) 253 MPV (7.4 - 10.4 fl) 11.6 H Neut % (Auto) (49.0 - 76.0 %) 55.7 Lymph % (Auto) (23.0 - 38.0 %) 26.8 Leslie % (Auto) (1.0 - 10.0 %) 12.9 H Eos % (Auto) (1.0 - 5.0 %) 3.3 Baso % (Auto) (0.0 - 1.0 %) 1.1 H Neut # (Auto) (2.4 - 6.3 K/mm3) 2.5 Lymph # (Auto) (1.2 - 4.0 K/mm3) 1.2 Leslie # (Auto) (0.0 - 0.6 K/mm3) 0.6 Eos # (Auto) (0.0 - 0.7 K/MM3) 0.2 Baso # (Auto) (0.0 - 0.2 K/mm3) 0.1 Immature Gran % (0.0 - 0.4 %) 0.2 Immature Gran # (0.00 - 0.07 x10 3/uL) 0.01 Radiology data: Recent Impressions: RADIOLOGY - XR UGI W/SMALL BOWEL 03/30 928 Report Impression - Status: SIGNED Entered: 03/30/2019 0952 IMPRESSION: Rapid transit seen through the small bowel, less than 10 minutes. Minimal gastroesophageal reflux. Continued thickening of the terminal ileum similar to prior CT on 03/27/19. Findings may relate to Crohn's disease. Other etiologies including infection may also be considered. Impression By: [email or web address] John Alexis M.D. at 1150 at 1219 [facility] #:[id number] END OF REPORT [facility] 2019-03-30 06:50:00 [id number] [facility] [address] [place] [address] PATIENT NAME: TALIB OCONNELL ADMIT DATE: 03/27/19 ACCOUNT NO: [id number] DISCHARGE DATE: ROOM NO: E.254 REPORT TYPE: ENDOSCOPY REPORT DATE OF : [birth year] AGE: 28 SEX: M ADMITTING PHYSICIAN:Jv Peña MD ATTENDING PHYSICIAN:Jv Peña MD [facility] Patient Name: Talib Oconnell Procedure Date: 03/30/2019 6:50 AM Date of : 1990 Admit Type: Inpatient Age: 28 Gender: Male Attending MD: Eliud Sierra MD Procedure: Colonoscopy Indications: Abdominal pain in the left lower quadrant Providers: Eliud Sierra MD (Doctor) Referring MD: Self Referred Requesting Provider: Medicines: General Anesthesia Procedure: Pre-Anesthesia Assessment: - Prior to the procedure, a History and Physical was performed, and patient medications and allergies were reviewed. The patient's tolerance of previous anesthesia was also reviewed. The risks and benefits of the procedure and the sedation options and risks were discussed with the patient. All questions were answered, and informed consent was obtained. Prior Anticoagulants: The patient has taken no previous anticoagulant or antiplatelet agents. ASA Grade Assessment: II - A patient with mild systemic disease. After reviewing the risks and benefits, the patient was deemed in satisfactory condition to undergo the procedure. After I obtained informed consent, the scope was passed under direct vision. Throughout the procedure, the patient's blood pressure, pulse, and oxygen saturations were monitored continuously. The [id number] Colonoscope was introduced through the anus and advanced to the cecum, identified by appendiceal orifice and ileocecal valve. The colonoscopy was performed without difficulty. The patient tolerated the procedure well. The quality of the bowel preparation was good. Findings: The perianal and digital rectal examinations were normal. Pertinent PATIENT NAME: TALIB OCONNELL negatives include normal sphincter tone. The exam was otherwise without abnormality. Terminal ileum could not be intubated. No evidence of colitis noted Complications: No immediate complications. Estimated Blood Loss: Estimated blood loss: none. Impression: - The examination was otherwise normal. - No specimens collected. Recommendation: - Repeat colonoscopy per protocol. Procedure Code(s): --- Professional --- 08232, Colonoscopy, flexible; diagnostic, including collection of specimen(s) by brushing or washing, when performed (separate procedure) CPT copyright 2017 [employer]. All rights reserved. The codes documented in this report are preliminary and upon tipple worker review may be revised to meet current compliance requirements. Eliud Sierra MD Eliud Sierra MD 03/30/2019 7:10:58 AM This report has been signed electronically. Number of Addenda: 0 Note Initiated On: 03/30/2019 6:50 AM at 0711 PATIENT NAME: TALIB OCONNELL [facility] 2019-03-29 14:16:00 [facility] ([facility] Hospitalist Progress Note REPORT#:[id number] REPORT STATUS: Signed DATE:03/29/19 TIME: 1416 PATIENT: TALIB OCONNELL UNIT #: [id number] ROOM/BED: [place] [address] : [birth year] AGE: 28 SEX: M ATTEND: Jv Peña MD ADM AUTHOR: Gerda Patino * ALL edits or amendments must be made on the electronic/computer document * Subjective Chief Complaint: Some abdominal pain intermittently but pain meds and clear liquids helping reduce pain Pt had bowel movement this morning, moderately loose consistency, no blood Colonoscopy scheduled for tomorrow Patient reports: Yes: complaints, abdominal pain, feeling better, pain controlled, resting comfortably. No: chest pain, chills, constipation, cough, diarrhea, dizziness, fever, headache, nausea, pain, shortness of breath, vomiting. Review of Systems Constitutional: Denies: chills, fatigue, fever. Skin: Denies: abrasion, bruising, contusion. Allergy/Immun: Denies: allergic reaction, anaphylaxis, hives. Eyes: Denies: redness, discharge, visual loss/blurred. ENT: Denies: ear drainage, ear ringing, sinus problem. Respiratory: Denies: MARINELLI (dyspnea on exertion), productive cough (sputum), SOB. Cardiovascular: Denies: chest pain, MARINELLI (dyspnea on exertion), edema. GI: Reports: abdominal pain, hematemesis, nausea, vomiting. Denies: diarrhea, hematochezia, melena. : Denies: dysuria, flank pain, frequency. Musculoskeletal: Denies: arthritis, joint pain, myalgias. Heme: Denies: bleeding, bruising, petechiae. Endocrine: Denies: cold intolerance, weight gain, weight loss. Neuro: Denies: bladder dysfunction, change in LOC, confusion. Psych: Denies: agitation, anxiety, confusion. Objective General VS/I O: Vital Signs: Date Time Temp Pulse Resp B/P B/P Pulse O2 O2 Flow FiO2 Mean Ox Delivery Rate 03/29 1108 98.1 67 18 132/70 90.9 100 03/29 0713 97.7 63 18 106/71 82.4 100 03/29 0333 97.7 65 18 117/67 83.8 100 Room air 03/28 2316 97.9 71 18 132/80 97.0 100 Room air 03/28 1921 98.8 72 18 134/72 92.7 100 Room air 03/28 1531 98.1 85 18 110/67 81.3 99 Room air 24 hour I O ending at 0700: 03/29 0700 03/28 1900 Intake Total 402 Output Total 425 Balance -23 Intake, Oral 402 Output, Urine 425 Medications: Active Meds + DC'd Last 24 Hrs Polyethylene Glycol/Electrolytes 2,000 ML ONCE ONE PO Magnesium Citrate 300 ML ONCE ONE PO Ondansetron HCl 4 MG Q4H PRN PRN IV Piperacillin Sod/Tazobactam Sod 3.375 GM Q8H IV Sodium Chloride 100 ML Morphine Sulfate 2 MG Q4H PRN IV Piperacillin Sod/Tazobactam Sod 3.375 GM Q6H IV (DC) Sodium Chloride 100 ML Sodium Chloride 1,000 ML .Q20H IV Morphine Sulfate 4 MG Q4H PRN PRN IV (DC) Ondansetron HCl 4 MG Q6H PRN PRN IV (DC) Physical Exam General appearance: alert, awake, oriented, no acute distress, pleasant, conversational Head/Eyes: atraumatic, normal conjunctiva/sclera, normocephalic ENT: moist mucosal membranes, normal dentition, normal nose Neck: normal thyroid, no JVD, no masses or swelling Cardiovascular: normal capillary refill, normal heart sounds, regular rate rhythm Respiratory: aerating well, clear to auscultation, symmetric expansion Abdomen: tenderness, normal bowel sounds, soft Genitourinary: no bladder distention, no flank pain, no post Rectal: deferred Extremities: normal range of motion, no calf tenderness, no edema Musculoskeletal: painless range of motion, no CVA tenderness, no muscle spasm Neuro/INDUSTRIAL COOK: alert, oriented X 3, CNII-XII intact Skin: dry, intact, normal color Lymphatics: neck normal, no lymphadenopathy Psychiatry: normal affect, normal judgment/insight, normal mood Results Findings/Data: Laboratory Tests 03/29 431 Chemistry Sodium (134.0 - 147.0 mmol/l) 142 Potassium (3.6 - 5.2 mmol/L) 3.8 Chloride (98.0 - 107.0 mmol/l) 109 H Carbon Dioxide (21.0 - 33.0 mmol/l) 25.7 Anion Gap (0 - 20) 11.1 BUN (7.0 - 18.0 mg/dl) 12 Creatinine (0.60 - 1.30 mg/dL) 1.08 Est GFR ( Amer) (133 - 145 mL/min) 105 L Est GFR (Non-Af Amer) (110 - 120 mL/min) 87 L Glucose (70.0 - 110.0 mg/dl) 79 Calcium (8.0 - 10.5 mg/dl) 7.7 L Magnesium (1.8 - 2.4 mg/dl) 1.8 Total Bilirubin (0.0 - 1.0 mg/dl) 0.6 AST (15.0 - 37.0 Units/L) 8 L ALT (12.0 - 78.0 Units/L) 14 Total Alk Phosphatase (50.0 - 136.0 Units/L) 62 Total Protein (6.4 - 8.2 gm/dL) 5.7 L Albumin (3.2 - 4.7 gm/dl) 2.8 L Laboratory Tests 03/29 431 Hematology WBC (4.5 - 11.0 K/mm3) 4.5 RBC (4.40 - 5.90 M/mm3) 4.11 L Hgb (13.0 - 17.0 gm/dL) 11.9 L Hct (36.0 - 48.0 %) 37.7 MCV (80.0 - 94.0 UM3) 91.7 MCH (25.5 - 32.5 UUG) 29.0 MCHC (29.0 - 35.5 gm/dL) 31.6 RDW (11.5 - 15.0 %) 14.2 Plt Count (150 - 400 K/mm3) 232 MPV (7.4 - 10.4 fl) 11.8 H Neut % (Auto) (49.0 - 76.0 %) 57.5 Lymph % (Auto) (23.0 - 38.0 %) 25.6 Leslie % (Auto) (1.0 - 10.0 %) 12.3 H Eos % (Auto) (1.0 - 5.0 %) 3.3 Baso % (Auto) (0.0 - 1.0 %) 1.1 H Neut # (Auto) (2.4 - 6.3 K/mm3) 2.6 Lymph # (Auto) (1.2 - 4.0 K/mm3) 1.2 Leslie # (Auto) (0.0 - 0.6 K/mm3) 0.6 Eos # (Auto) (0.0 - 0.7 K/MM3) 0.2 Baso # (Auto) (0.0 - 0.2 K/mm3) 0.1 Immature Gran % (0.0 - 0.4 %) 0.2 Immature Gran # (0.00 - 0.07 x10 3/uL) 0.01 Diagnosis, Assessment Plan Problem List/A P: 1. Abdominal pain 2. Colonic obstruction 3. Nausea vomiting Plan discussed with: patient, nurse Free Text DxA P Notes Free text DxA P notes: 1. Colonic obstruction -Continue Zosyn 3.375g -Continue IVF (NaCl @ 50mL/hr) -CT scan showed obstruction with probable inflammatory etiology -Having bowel movements, last one was yesterday -GI consulted for further workup, colonoscopy recommended -[facility] colonoscopy prep to be started this afternoon, colonoscopy scheduled tomorrow, still on zosyn (03/29) 2. Abdominal pain -Continue morphine PRN -Continue Zofran 4mg Q6H PRN -Pain controlled -Continued pain control (03/29) 3. Nausea -Continue zofran 4mg -Stabilized 4. Vomiting -Last episode was yesterday -Has NG tube in, blood reported by pt that was seen yesterday -Stabilized 5. UTI, asymptomatic -UA showed positive leuk esterase and few WBCs 6. Possible Crohn's/UC -CT scan showed possible inflammatory etiology -GI consult on board for further workup -Colonoscopy to be done tomorrow (03/29) at 1912 RPT #:[id number] END OF REPORT [facility] 2019-03-29 14:16:00 [facility] ([facility] Hospitalist Progress Note REPORT#:[id number] REPORT STATUS: Signed DATE:03/29/19 TIME: 1415 PATIENT: TALIB OCONNELL UNIT #: [id number] ROOM/BED: [facility] : [birth year] AGE: 28 SEX: M ATTEND: Jv Peña MD ADM AUTHOR: Gerda Patino * ALL edits or amendments must be made on the electronic/computer document * Subjective Chief Complaint: Some abdominal pain intermittently but pain meds and clear liquids helping reduce pain Pt had bowel movement this morning, moderately loose consistency, no blood Colonoscopy scheduled for tomorrow Patient reports: Yes: complaints, abdominal pain, feeling better, pain controlled, resting comfortably. No: chest pain, chills, constipation, cough, diarrhea, dizziness, fever, headache, nausea, pain, shortness of breath, vomiting. Review of Systems Constitutional: Denies: chills, fatigue, fever. Skin: Denies: abrasion, bruising, contusion. Allergy/Immun: Denies: allergic reaction, anaphylaxis, hives. Eyes: Denies: redness, discharge, visual loss/blurred. ENT: Denies: ear drainage, ear ringing, sinus problem. Respiratory: Denies: MARINELLI (dyspnea on exertion), productive cough (sputum), SOB. Cardiovascular: Denies: chest pain, MARINELLI (dyspnea on exertion), edema. GI: Reports: abdominal pain, hematemesis, nausea, vomiting. Denies: diarrhea, hematochezia, melena. : Denies: dysuria, flank pain, frequency. Musculoskeletal: Denies: arthritis, joint pain, myalgias. Heme: Denies: bleeding, bruising, petechiae. Endocrine: Denies: cold intolerance, weight gain, weight loss. Neuro: Denies: bladder dysfunction, change in LOC, confusion. Psych: Denies: agitation, anxiety, confusion. Objective General VS/I O: Vital Signs: Date Time Temp Pulse Resp B/P B/P Pulse O2 O2 Flow FiO2 Mean Ox Delivery Rate 03/29 1108 98.1 67 18 132/70 90.9 100 03/29 0713 97.7 63 18 106/71 82.4 100 03/29 0333 97.7 65 18 117/67 83.8 100 Room air 03/28 2316 97.9 71 18 132/80 97.0 100 Room air 03/28 1921 98.8 72 18 134/72 92.7 100 Room air 03/28 1531 98.1 85 18 110/67 81.3 99 Room air 24 hour I O ending at 0700: 03/29 0700 03/28 1900 Intake Total 402 Output Total 425 Balance -23 Intake, Oral 402 Output, Urine 425 Medications: Active Meds + DC'd Last 24 Hrs Polyethylene Glycol/Electrolytes 2,000 ML ONCE ONE PO Magnesium Citrate 300 ML ONCE ONE PO Ondansetron HCl 4 MG Q4H PRN PRN IV Piperacillin Sod/Tazobactam Sod 3.375 GM Q8H IV Sodium Chloride 100 ML Morphine Sulfate 2 MG Q4H PRN IV Piperacillin Sod/Tazobactam Sod 3.375 GM Q6H IV (DC) Sodium Chloride 100 ML Sodium Chloride 1,000 ML .Q20H IV Morphine Sulfate 4 MG Q4H PRN PRN IV (DC) Ondansetron HCl 4 MG Q6H PRN PRN IV (DC) Physical Exam General appearance: alert, awake, oriented, no acute distress, pleasant, conversational Head/Eyes: atraumatic, normal conjunctiva/sclera, normocephalic ENT: moist mucosal membranes, normal dentition, normal nose Neck: normal thyroid, no JVD, no masses or swelling Cardiovascular: normal capillary refill, normal heart sounds, regular rate rhythm Respiratory: aerating well, clear to auscultation, symmetric expansion Abdomen: tenderness, normal bowel sounds, soft Genitourinary: no bladder distention, no flank pain, no post Rectal: deferred Extremities: normal range of motion, no calf tenderness, no edema Musculoskeletal: painless range of motion, no CVA tenderness, no muscle spasm Neuro/INDUSTRIAL COOK: alert, oriented X 3, CNII-XII intact Skin: dry, intact, normal color Lymphatics: neck normal, no lymphadenopathy Psychiatry: normal affect, normal judgment/insight, normal mood Results Findings/Data: Laboratory Tests 03/29 0431 Chemistry Sodium (134.0 - 147.0 mmol/l) 142 Potassium (3.6 - 5.2 mmol/L) 3.8 Chloride (98.0 - 107.0 mmol/l) 109 H Carbon Dioxide (21.0 - 33.0 mmol/l) 25.7 Anion Gap (0 - 20) 11.1 BUN (7.0 - 18.0 mg/dl) 12 Creatinine (0.60 - 1.30 mg/dL) 1.08 Est GFR ( Amer) (133 - 145 mL/min) 105 L Est GFR (Non-Af Amer) (110 - 120 mL/min) 87 L Glucose (70.0 - 110.0 mg/dl) 79 Calcium (8.0 - 10.5 mg/dl) 7.7 L Magnesium (1.8 - 2.4 mg/dl) 1.8 Total Bilirubin (0.0 - 1.0 mg/dl) 0.6 AST (15.0 - 37.0 Units/L) 8 L ALT (12.0 - 78.0 Units/L) 14 Total Alk Phosphatase (50.0 - 136.0 Units/L) 62 Total Protein (6.4 - 8.2 gm/dL) 5.7 L Albumin (3.2 - 4.7 gm/dl) 2.8 L Laboratory Tests 03/29 0431 Hematology WBC (4.5 - 11.0 K/mm3) 4.5 RBC (4.40 - 5.90 M/mm3) 4.11 L Hgb (13.0 - 17.0 gm/dL) 11.9 L Hct (36.0 - 48.0 %) 37.7 MCV (80.0 - 94.0 UM3) 91.7 MCH (25.5 - 32.5 UUG) 29.0 MCHC (29.0 - 35.5 gm/dL) 31.6 RDW (11.5 - 15.0 %) 14.2 Plt Count (150 - 400 K/mm3) 232 MPV (7.4 - 10.4 fl) 11.8 H Neut % (Auto) (49.0 - 76.0 %) 57.5 Lymph % (Auto) (23.0 - 38.0 %) 25.6 Leslie % (Auto) (1.0 - 10.0 %) 12.3 H Eos % (Auto) (1.0 - 5.0 %) 3.3 Baso % (Auto) (0.0 - 1.0 %) 1.1 H Neut # (Auto) (2.4 - 6.3 K/mm3) 2.6 Lymph # (Auto) (1.2 - 4.0 K/mm3) 1.2 Leslie # (Auto) (0.0 - 0.6 K/mm3) 0.6 Eos # (Auto) (0.0 - 0.7 K/MM3) 0.2 Baso # (Auto) (0.0 - 0.2 K/mm3) 0.1 Immature Gran % (0.0 - 0.4 %) 0.2 Immature Gran # (0.00 - 0.07 x10 3/uL) 0.01 Diagnosis, Assessment Plan Problem List/A P: 1. Abdominal pain 2. Colonic obstruction 3. Nausea vomiting Plan discussed with: patient, nurse Free Text DxA P Notes Free text DxA P notes: 1. Colonic obstruction -Continue Zosyn 3.375g -Continue IVF (NaCl @ 50mL/hr) -CT scan showed obstruction with probable inflammatory etiology -Having bowel movements, last one was yesterday -GI consulted for further workup, colonoscopy recommended -[facility] colonoscopy prep to be started this afternoon, colonoscopy scheduled tomorrow, still on zosyn (03/29) 2. Abdominal pain -Continue morphine PRN -Continue Zofran 4mg Q6H PRN -Pain controlled -Continued pain control (03/29) 3. Nausea -Continue zofran 4mg -Stabilized 4. Vomiting -Last episode was yesterday -Has NG tube in, blood reported by pt that was seen yesterday -Stabilized 5. UTI, asymptomatic -UA showed positive leuk esterase and few WBCs 6. Possible Crohn's/UC -CT scan showed possible inflammatory etiology -GI consult on board for further workup -Colonoscopy to be done tomorrow (03/29) at 8952 at 5468 RPT #:[id number] END OF REPORT [facility] 2019-03-28 10:45:00 [id number] [facility] [address] [id number] PATIENT NAME: TALIB OCONNELL ADMIT DATE: 03/27/19 ACCOUNT NO: [id number] DISCHARGE DATE: 03/30/19 ROOM NO: E.254 REPORT TYPE: CONSULTATION REPORT DATE OF : [birth year] AGE: 28 SEX: M ADMITTING PHYSICIAN:Jv Peña MD ATTENDING PHYSICIAN:Jv Peña MD CONSULTATION DATE: 03/28/2019 CONSULTING PHYSICIAN: Francine Ledezma MD CHIEF COMPLAINT: Abdominal pain. HISTORY OF PRESENT ILLNESS: This is a 28-year-old -[place] man with no prior medical problems prior to this hospitalization. The patient states that his first episode of abdominal pain was probably 2 months ago, when he began having abdominal pain, nausea, and vomiting. He went to the [facility] Emergency Room and there, he was told he was dehydrated. He thinks he might have just had a plain film of the abdomen along with hydration and pain medication. He states that approximately 5 hours later, he felt better and he was discharged home and he did fine. Yesterday, he states that he began having abdominal pain approximately 2 days prior to admission. The pain was generalized in nature. He had been having daily bowel movements without any problems, but when the pain started, he would pass gas, but he did not have bowel movements. He began having nausea and vomiting and his mother, who lives in [facility], asked that he come here to receive his medical care because she knows the physicians in this area. He presented to our Emergency Room and a workup was done. He had a white count of 7.5, hemoglobin 15.6, hematocrit 48.7 and a platelet count of 302,000. He had 78 neutrophils. His urinalysis showed 25 leukocytes per microliter and 5 to 10 wbc's per high-power field. His comprehensive metabolic panel showed potassium of 3.5, BUN of 19, and a creatinine of 1.13. The patient had a normal lipase. CT scan of the abdomen and pelvis was done, which showed diffuse long segment thickening of the terminal ileum with proximal small bowel fecalization and dilatation at 3.4 cm. There was thickening of the ascending, transverse, and descending colon as well. There was nonvisualization of the appendix. PAST MEDICAL HISTORY: Unremarkable. 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 He denies alcohol and tobacco use. FAMILY HISTORY: The patient's maternal grandmother has a history of colitis according to the mother. REVIEW OF SYSTEMS: Negative history for nocturnal sweats, fever, chills, weight loss, musculoskeletal pain and discomfort, joint pain and discomfort. He denies dysuria, frequency, or urgency. PHYSICAL EXAMINATION: PATIENT NAME: TALIB OCONNELL VITAL SIGNS: Temperature of 97.5, pulse of 71, respirations 18, blood pressure 107/69. GENERAL: He is a very healthy-appearing young man. He is engaging in intelligent. HEAD, EYES, EARS, NOSE, AND THROAT: He has an NG tube in place with minimal output. His pupils are equally round and reactive to light. His extraocular muscles are intact. He has nonicteric sclerae. His oropharynx is dry from oral breathing, but his dentition is excellent. NECK: Supple without adenopathy. LUNGS: Clear to auscultation. HEART: Had a regular rate and rhythm without murmurs or gallops. ABDOMEN: Very healthy for someone of his age. He has great muscle tone. Once the patient was able to relax, he had mild tenderness in the suprapubic and right lower quadrant and epigastric region. He did not have any guarding, no fascial defects or palpable masses. EXTREMITIES: Without cyanosis, clubbing, or edema. ASSESSMENT: 1. Abdominal pain, nausea, and vomiting. 2. Abnormal radiographic CT scan of the abdomen and pelvis consistent with Crohn's or ulcerative colitis. PLAN: 1. Discontinue NG tube. 2. Clear liquid diet. 3. Gastroenterology consult to endoscopically, hopefully evaluate the colon and terminal ileum. Dictated By: Francine Ledezma MD WT: CON:SUSANA/ROSLYN/ROSA ISELA Conf#: [id number]/DID#: [id number] Authenticated by Francine Ledezma MD On 04/16/2019 07:56:43 AM at 0757 PATIENT NAME: TALIB OCONNELL [facility] 2019-03-28 10:16:00 [facility] Hospitalist History Physical REPORT#:[id number] REPORT STATUS: Signed DATE:03/28/19 TIME: 1016 PATIENT: TALIB OCONNELL UNIT #: [id number] ROOM/BED: [place] [address] : [birth year] AGE: 28 SEX: M ATTEND: Jv Peña MD ADM AUTHOR: Gerda Patino * ALL edits or amendments must be made on the electronic/computer document * History of Present Illness HPI Chief complaint: Abdominal pain PCP: PCP: No Primary Care Physician HPI: Mr. Oconnell is a 28 y/o male with no significant past medical history. He presented to the ED yesterday, 03/27, with abdominal pain occurring since Tuesday. It is described as intermittent and is diffusely over the entire abdomen. He had 2-3 bowel movements since Tuesday with the last being yesterday. Denies any changes in color, form, or blood present. He endorses nausea and vomiting and has had several episodes since Tuesday, the last being yesterday after he had the NG tube put in. He noticed blood in the tube. His pain is described as 10/10. He endorses a previous abdominal pain a couple months ago when he went to [place] ED and they told him he was dehydrated and they gave him fluids and sent him home without any further problems. His materal grandmother has history of colitis. His BP upon arrival to ED was 135/90, HR of 75 and was afebrile. Most recent vitals were BP of 107/69, HR of 71 and has remained afebrile. His Hct was 48.7. K of 3.5. BUN of 19. The rest of the CBC and CMP were unremarkable. His UA showed positive protein, leuk esterase and few WBCs. He had a CT of abdomen and pelvis that showed colonic obstruction, and thickening of terminal ileum and colon, suggesting inflammatory etiology. GI consult with colonoscopy follow-up is recommended. There is also a 1.7 cm intdeterminate structure in the right hepatic lobe that would benefit to be further investigated with US. Pt has been on Zosyn 3.375 g, morphine, Zofran, and IVF. 03/27/19 1543: [Embedded Image Not Available] Laboratory Tests: 03/27 154 Chemistry Sodium (134.0 - 147.0 mmol/l) 136 Potassium (3.6 - 5.2 mmol/L) 3.5 L Chloride (98.0 - 107.0 mmol/l) 101 Carbon Dioxide (21.0 - 33.0 mmol/l) 26.3 Anion Gap (0 - 20) 12.2 BUN (7.0 - 18.0 mg/dl) 19 H Creatinine (0.60 - 1.30 mg/dL) 1.13 Est GFR ( Amer) (133 - 145 mL/min) 100 L Est GFR (Non-Af Amer) (110 - 120 mL/min) 83 L Glucose (70.0 - 110.0 mg/dl) 92 Calcium (8.0 - 10.5 mg/dl) 9.7 Total Bilirubin (0.0 - 1.0 mg/dl) 0.7 AST (15.0 - 37.0 Units/L) 13 L ALT (12.0 - 78.0 Units/L) 19 Total Alk Phosphatase (50.0 - 136.0 Units/L) 103 Total Protein (6.0 - 8.1 GM/DL) 8.8 H Albumin (3.2 - 4.7 gm/dL) 4.4 Lipase (65.0 - 230.0 Units/L) 56 L Hematology WBC (4.5 - 11.0 K/mm3) 7.5 RBC (4.40 - 5.90 M/mm3) 5.47 Hgb (13.0 - 17.0 gm/dL) 15.6 Hct (36.0 - 48.0 %) 48.7 H MCV (80.0 - 94.0 UM3) 89.0 MCH (25.5 - 32.5 UUG) 28.5 MCHC (29.0 - 35.5 gm/dL) 32.0 RDW (11.5 - 15.0 %) 14.0 Plt Count (150 - 400 K/mm3) 302 MPV (7.4 - 10.4 fl) 11.1 H Neut % (Auto) (49.0 - 76.0 %) 77.6 H Lymph % (Auto) (23.0 - 38.0 %) 11.8 L Leslie % (Auto) (1.0 - 10.0 %) 8.8 Eos % (Auto) (1.0 - 5.0 %) 0.8 L Baso % (Auto) (0.0 - 1.0 %) 0.7 Neut # (Auto) (2.4 - 6.3 K/mm3) 5.9 Lymph # (Auto) (1.2 - 4.0 K/mm3) 0.9 L Leslie # (Auto) (0.0 - 0.6 K/mm3) 0.7 H Eos # (Auto) (0.0 - 0.7 K/MM3) 0.1 Baso # (Auto) (0.0 - 0.2 K/mm3) 0.1 Immature Gran % (0.0 - 0.4 %) 0.3 Immature Gran # (0.00 - 0.07 x10 3/uL) 0.02 Urines Urine Color YELLOW Urine Appearance CLEAR Urine pH (5.0 - 9.0) 8.0 Ur Specific [place] (1.000 - 1.030) 1.010 Urine Protein (NEGATIVE mg/dl) 15 mg/dl H Urine Glucose (UA) (NORMAL mg/dl) NORMAL Urine Ketones (NEGATIVE mg/dl) NEGATIVE Urine Blood (NEGATIVE Israel/micL) NEGATIVE Urine Nitrite (NEGATIVE) NEGATIVE Urine Bilirubin (NEGATIVE mg/dL) NEGATIVE Urine Urobilinogen (NORMAL mg/dl) NORMAL Ur Leukocyte Esterase (NEGATIVE Bambi/micL) 25 Bambi/micL H Urine RBC (0 - 3 RBC/HPF) 0-2 Urine WBC (NONE WBC/HPF) 5-10/HPF Ur Epithelial Cells (0 - 3 EPI/HPF) 5-10 H Ur Renal Epithelial Cell FEW Urine Bacteria (NONE) FEW Urine Mucus 2+ Informant/historian: patient History Additional medical history: Negative Additional surgical history: Arm surgery Family history: Reports: Hypertension. Alcohol use: Denies EtOH use Drug use: Denies recreational drugs Smoking status for patients 13 years old or older: Current every day smoker Medication/Allergy-Vaccine Hx Medications: Current Hospital Medications: Anti-Infective Agents Sig/David Start time Last Medication Dose Route Stop Time Status Admin Piperacillin Sod/ 3.375 GM Q6H 03/28 0000 AC 03/28 Tazobactam Sod IV 03/28 1700 0511 (ZOSYN 3.375 GM VIAL) Sodium Chloride 100 ML (SODIUM CHLORIDE 0.9% 100 ML) Piperacillin Sod/ 3.375 GM X1ED STA 06/11 1721 DC 03/27 Tazobactam Sod IV 03/27 1750 1743 (ZOSYN 3.375 GM VIAL) Sodium Chloride 100 ML (SODIUM CHLORIDE 0.9% 100 ML) Central Nervous System Agents Sig/David Start time Last Medication Dose Route Stop Time Status Admin Morphine Sulfate 4 MG Q4H PRN PRN 03/27 1730 AC 03/28 (morphine SULFATE) IV 03/28 1622 0923 Ketorolac 30 MG X1ED STA 03/27 1513 DC 03/27 Tromethamine IV 03/27 1514 1601 (TORADOL) Diagnostic Agents Sig/David Start time Last Medication Dose Route Stop Time Status Admin Iopamidol 0 .STK-MED ONE 03/27 1628 DC 03/27 (ISOVUE-300 100ML) .ROUTE 1631 Electrolytic, Caloric, And Rashawn Sig/David Start time Last Medication Dose Route Stop Time Status Admin Sodium Chloride 1,000 ML .Q10H 03/27 1945 AC 03/28 (SODIUM CHLORIDE IV 04/26 1944 0425 0.9%) Sodium Chloride 1,000 ML X1ED STA 03/27 1722 DC (SODIUM CHLORIDE IV 03/28 0321 0.9%) Sodium Chloride 1,000 ML X1ED STA 03/27 1513 DC 03/27 (SODIUM CHLORIDE IV 03/27 1612 1600 0.9%) Gastrointestinal Drugs Sig/David Start time Last Medication Dose Route Stop Time Status Admin Ondansetron HCl 4 MG Q6H PRN PRN 03/27 1730 AC 03/27 (ZOFRAN 2ML) IV 03/28 1622 1743 Ondansetron HCl 4 MG X1ED STA 03/27 1513 DC 03/27 (ZOFRAN 2ML) IV 03/27 1514 1601 Allergies: Coded Allergies: No Known Drug Allergies (03/27/19) Review of Systems Constitutional: Denies: chills, fatigue, fever. Skin: Denies: abrasion, bruising, contusion. Allergy/Immun: Denies: allergic reaction, anaphylaxis, hives. Eyes: Denies: redness, discharge, visual loss/blurred. ENT: Denies: ear drainage, ear ringing, sinus problem. Respiratory: Denies: MARINELLI (dyspnea on exertion), productive cough (sputum), SOB. Cardiovascular: Denies: chest pain, MARINELLI (dyspnea on exertion), edema. GI: Reports: abdominal pain, hematemesis, nausea, vomiting. Denies: diarrhea, hematochezia, melena. : Denies: dysuria, flank pain, frequency. Musculoskeletal: Denies: arthritis, joint pain, myalgias. Heme: Denies: bleeding, bruising, petechiae. Endocrine: Denies: cold intolerance, weight gain, weight loss. Neuro: Denies: bladder dysfunction, change in LOC, confusion. Psych: Denies: agitation, anxiety, confusion. Objective General VS/I O: Vital Signs: Date Time Temp Pulse Resp B/P B/P Pulse O2 O2 Flow FiO2 Mean Ox Delivery Rate 03/28 0800 97.5 71 18 107/69 81.8 100 Room air 03/28 0055 97.5 65 16 136/76 96.2 99 Room air 03/27 1850 97.7 65 16 131/89 102.8 100 Room air 03/27 1839 98.1 77 18 124/84 97 99 03/27 1459 97.4 75 20 135/90 105 100 24 hour I O ending at 0700: 03/28 0700 03/27 1900 Intake Total 1050.00 Output Total 600 Balance 450.00 Intake, IV 1050.00 Output, 0 Gastric Drainage Output, Urine 600 Patient 68 kg Weight Weight Stated/Reported Measurement Method Medications: Active Meds + DC'd Last 24 Hrs Piperacillin Sod/Tazobactam Sod 3.375 GM Q6H IV Sodium Chloride 100 ML Sodium Chloride 1,000 ML .Q10H IV Morphine Sulfate 4 MG Q4H PRN PRN IV Ondansetron HCl 4 MG Q6H PRN PRN IV Sodium Chloride 1,000 ML X1ED STA IV (DC) Piperacillin Sod/Tazobactam Sod 3.375 GM X1ED STA IV (DC) Sodium Chloride 100 ML Iopamidol 0 .STK-MED ONE .ROUTE (DC) Ketorolac Tromethamine 30 MG X1ED STA IV (DC) Ondansetron HCl 4 MG X1ED STA IV (DC) Sodium Chloride 1,000 ML X1ED STA IV (DC) Physical Exam General appearance: alert, awake, oriented, no acute distress Head/Eyes: atraumatic, normal conjunctiva/sclera, normocephalic ENT: moist mucosal membranes, normal dentition, normal nose Neck: normal thyroid, no JVD, no masses or swelling Cardiovascular: normal capillary refill, normal heart sounds, regular rate rhythm Respiratory: aerating well, clear to auscultation, symmetric expansion Abdomen: tenderness, normal bowel sounds, soft Genitourinary: no bladder distention, no flank pain, no post Rectal: deferred Extremities: normal range of motion, no calf tenderness, no edema Musculoskeletal: painless range of motion, no CVA tenderness, no muscle spasm Neuro/INDUSTRIAL COOK: alert, oriented X 3, CNII-XII intact Skin: dry, intact, normal color Lymphatics: neck normal, no lymphadenopathy Psychiatry: normal affect, normal judgment/insight, normal mood Results Findings/Data: Laboratory Tests 03/27 1543 Chemistry Sodium (134.0 - 147.0 mmol/l) 136 Potassium (3.6 - 5.2 mmol/L) 3.5 L Chloride (98.0 - 107.0 mmol/l) 101 Carbon Dioxide (21.0 - 33.0 mmol/l) 26.3 Anion Gap (0 - 20) 12.2 BUN (7.0 - 18.0 mg/dl) 19 H Creatinine (0.60 - 1.30 mg/dL) 1.13 Est GFR ( Amer) (133 - 145 mL/min) 100 L Est GFR (Non-Af Amer) (110 - 120 mL/min) 83 L Glucose (70.0 - 110.0 mg/dl) 92 Calcium (8.0 - 10.5 mg/dl) 9.7 Total Bilirubin (0.0 - 1.0 mg/dl) 0.7 AST (15.0 - 37.0 Units/L) 13 L ALT (12.0 - 78.0 Units/L) 19 Total Alk Phosphatase (50.0 - 136.0 Units/L) 103 Total Protein (6.0 - 8.1 GM/DL) 8.8 H Albumin (3.2 - 4.7 gm/dL) 4.4 Lipase (65.0 - 230.0 Units/L) 56 L Laboratory Tests 03/27 1543 Hematology WBC (4.5 - 11.0 K/mm3) 7.5 RBC (4.40 - 5.90 M/mm3) 5.47 Hgb (13.0 - 17.0 gm/dL) 15.6 Hct (36.0 - 48.0 %) 48.7 H MCV (80.0 - 94.0 UM3) 89.0 MCH (25.5 - 32.5 UUG) 28.5 MCHC (29.0 - 35.5 gm/dL) 32.0 RDW (11.5 - 15.0 %) 14.0 Plt Count (150 - 400 K/mm3) 302 MPV (7.4 - 10.4 fl) 11.1 H Neut % (Auto) (49.0 - 76.0 %) 77.6 H Lymph % (Auto) (23.0 - 38.0 %) 11.8 L Leslie % (Auto) (1.0 - 10.0 %) 8.8 Eos % (Auto) (1.0 - 5.0 %) 0.8 L Baso % (Auto) (0.0 - 1.0 %) 0.7 Neut # (Auto) (2.4 - 6.3 K/mm3) 5.9 Lymph # (Auto) (1.2 - 4.0 K/mm3) 0.9 L Leslie # (Auto) (0.0 - 0.6 K/mm3) 0.7 H Eos # (Auto) (0.0 - 0.7 K/MM3) 0.1 Baso # (Auto) (0.0 - 0.2 K/mm3) 0.1 Immature Gran % (0.0 - 0.4 %) 0.3 Immature Gran # (0.00 - 0.07 x10 3/uL) 0.02 Laboratory Tests 03/27 1543 Urines Urine Color YELLOW Urine Appearance CLEAR Urine pH (5.0 - 9.0) 8.0 Ur Specific [place] (1.000 - 1.030) 1.010 Urine Protein (NEGATIVE mg/dl) 15 mg/dl H Urine Glucose (UA) (NORMAL mg/dl) NORMAL Urine Ketones (NEGATIVE mg/dl) NEGATIVE Urine Blood (NEGATIVE [place]/micL) NEGATIVE Urine Nitrite (NEGATIVE) NEGATIVE Urine Bilirubin (NEGATIVE mg/dL) NEGATIVE Urine Urobilinogen (NORMAL mg/dl) NORMAL Ur Leukocyte Esterase (NEGATIVE Bambi/micL) 25 Bambi/micL H Urine RBC (0 - 3 RBC/HPF) 0-2 Urine WBC (NONE WBC/HPF) 5-10/HPF Ur Epithelial Cells (0 - 3 EPI/HPF) 5-10 H Ur Renal Epithelial Cell FEW Urine Bacteria (NONE) FEW Urine Mucus 2+ Radiology data: Recent Impressions: CAT SCAN - CT ABD PELVIS W/CONT 03/27 1620 Report Impression - Status: SIGNED Entered: 03/27/2019 1706 IMPRESSION: Terminal ileum thickening and hyperenhancement, as well as thickening of ascending, transverse and descending colon, findings are most suggestive of inflammatory etiology such as Crohn's/UC. Recommend GI consultation and colonoscopy when clinically feasible. Fecalization and dilatation of jejunal bowel loops at 3.4 cm, indicative of bowel obstruction. 1.7 cm indeterminate low-attenuation structure in posterior right hepatic lobe, correlate with sonography. Impression By: JahairaANSYuriy Milton M.D. Diagnosis, Assessment Plan Problem List/A P: 1. Abdominal pain 2. Colonic obstruction 3. Nausea vomiting Orders: Procedure Date/time Status GASTROENTEROLOGY CONSULT 03/28 0846 Active Plan discussed with: patient, nurse Free Text DxA P Notes Free Text DxA P Notes: 1. Colonic obstruction -Continue Zosyn 3.375g -Continue IVF (NaCl @ 50mL/hr) -CT scan showed obstruction with probable inflammatory etiology -Having bowel movements, last one was yesterday -GI consulted for further workup, colonoscopy recommended 2. Abdominal pain -Continue morphine PRN -Continue Zofran 4mg Q6H PRN -Pain controlled 3. Nausea -Continue zofran 4mg -Stabilized 4. Vomiting -Last episode was yesterday -Has NG tube in, blood reported by pt that was seen yesterday -Stabilized 5. UTI, asymptomatic -UA showed positive leuk esterase and few WBCs 6. Possible Crohn's/UC -CT scan showed possible inflammatory etiology -GI consult on board for further workup 7. Indeterminate liver structure -Follow up with US of liver at 1612 RPT #:[id number] END OF REPORT [facility] 2019-03-28 10:16:00 [facility] ([facility] Hospitalist History Physical REPORT#:[id number] REPORT STATUS: Signed DATE:03/28/19 TIME: 1016 PATIENT: TALIB OCONNELL UNIT #: [id number] ROOM/BED: [place] [id number] : [birth year] AGE: 28 SEX: M ATTEND: Jv Peña MD ADM AUTHOR: Gerda Patino * ALL edits or amendments must be made on the electronic/computer document * History of Present Illness HPI Chief complaint: Abdominal pain PCP: PCP: No Primary Care Physician HPI: Mr. Oconnell is a 28 y/o male with no significant past medical history. He presented to the ED yesterday, 03/27, with abdominal pain occurring since Tuesday. It is described as intermittent and is diffusely over the entire abdomen. He had 2-3 bowel movements since Tuesday with the last being yesterday. Denies any changes in color, form, or blood present. He endorses nausea and vomiting and has had several episodes since Tuesday, the last being yesterday after he had the NG tube put in. He noticed blood in the tube. His pain is described as 10/10. He endorses a previous abdominal pain a couple months ago when he went to [place] ED and they told him he was dehydrated and they gave him fluids and sent him home without any further problems. His materal grandmother has history of colitis. His BP upon arrival to ED was 135/90, HR of 75 and was afebrile. Most recent vitals were BP of 107/69, HR of 71 and has remained afebrile. His Hct was 48.7. K of 3.5. BUN of 19. The rest of the CBC and CMP were unremarkable. His UA showed positive protein, leuk esterase and few WBCs. He had a CT of abdomen and pelvis that showed colonic obstruction, and thickening of terminal ileum and colon, suggesting inflammatory etiology. GI consult with colonoscopy follow-up is recommended. There is also a 1.7 cm intdeterminate structure in the right hepatic lobe that would benefit to be further investigated with US. Pt has been on Zosyn 3.375 g, morphine, Zofran, and IVF. 03/27/19 1543: [Embedded Image Not Available] Laboratory Tests: 03/27 1543 Chemistry Sodium (134.0 - 147.0 mmol/l) 136 Potassium (3.6 - 5.2 mmol/L) 3.5 L Chloride (98.0 - 107.0 mmol/l) 101 Carbon Dioxide (21.0 - 33.0 mmol/l) 26.3 Anion Gap (0 - 20) 12.2 BUN (7.0 - 18.0 mg/dl) 19 H Creatinine (0.60 - 1.30 mg/dL) 1.13 Est GFR ( Amer) (133 - 145 mL/min) 100 L Est GFR (Non-Af Amer) (110 - 120 mL/min) 83 L Glucose (70.0 - 110.0 mg/dl) 92 Calcium (8.0 - 10.5 mg/dl) 9.7 Total Bilirubin (0.0 - 1.0 mg/dl) 0.7 AST (15.0 - 37.0 Units/L) 13 L ALT (12.0 - 78.0 Units/L) 19 Total Alk Phosphatase (50.0 - 136.0 Units/L) 103 Total Protein (6.0 - 8.1 GM/DL) 8.8 H Albumin (3.2 - 4.7 gm/dL) 4.4 Lipase (65.0 - 230.0 Units/L) 56 L Hematology WBC (4.5 - 11.0 K/mm3) 7.5 RBC (4.40 - 5.90 M/mm3) 5.47 Hgb (13.0 - 17.0 gm/dL) 15.6 Hct (36.0 - 48.0 %) 48.7 H MCV (80.0 - 94.0 UM3) 89.0 MCH (25.5 - 32.5 UUG) 28.5 MCHC (29.0 - 35.5 gm/dL) 32.0 RDW (11.5 - 15.0 %) 14.0 Plt Count (150 - 400 K/mm3) 302 MPV (7.4 - 10.4 fl) 11.1 H Neut % (Auto) (49.0 - 76.0 %) 77.6 H Lymph % (Auto) (23.0 - 38.0 %) 11.8 L Leslie % (Auto) (1.0 - 10.0 %) 8.8 Eos % (Auto) (1.0 - 5.0 %) 0.8 L Baso % (Auto) (0.0 - 1.0 %) 0.7 Neut # (Auto) (2.4 - 6.3 K/mm3) 5.9 Lymph # (Auto) (1.2 - 4.0 K/mm3) 0.9 L Leslie # (Auto) (0.0 - 0.6 K/mm3) 0.7 H Eos # (Auto) (0.0 - 0.7 K/MM3) 0.1 Baso # (Auto) (0.0 - 0.2 K/mm3) 0.1 Immature Gran % (0.0 - 0.4 %) 0.3 Immature Gran # (0.00 - 0.07 x10 3/uL) 0.02 Urines Urine Color YELLOW Urine Appearance CLEAR Urine pH (5.0 - 9.0) 8.0 Ur Specific [place] (1.000 - 1.030) 1.010 Urine Protein (NEGATIVE mg/dl) 15 mg/dl H Urine Glucose (UA) (NORMAL mg/dl) NORMAL Urine Ketones (NEGATIVE mg/dl) NEGATIVE Urine Blood (NEGATIVE [place]/micL) NEGATIVE Urine Nitrite (NEGATIVE) NEGATIVE Urine Bilirubin (NEGATIVE mg/dL) NEGATIVE Urine Urobilinogen (NORMAL mg/dl) NORMAL Ur Leukocyte Esterase (NEGATIVE Bambi/micL) 25 Bambi/micL H Urine RBC (0 - 3 RBC/HPF) 0-2 Urine WBC (NONE WBC/HPF) 5-10/HPF Ur Epithelial Cells (0 - 3 EPI/HPF) 5-10 H Ur Renal Epithelial Cell FEW Urine Bacteria (NONE) FEW Urine Mucus 2+ Informant/historian: patient History Additional medical history: Negative Additional surgical history: Arm surgery Family history: Reports: Hypertension. Alcohol use: Denies EtOH use Drug use: Denies recreational drugs Smoking status for patients 13 years old or older: Current every day smoker Medication/Allergy-Vaccine Hx Medications: Current Hospital Medications: Anti-Infective Agents Sig/David Start time Last Medication Dose Route Stop Time Status Admin Piperacillin Sod/ 3.375 GM Q6H 03/28 0000 AC 03/28 Tazobactam Sod IV 03/28 1700 0511 (ZOSYN 3.375 GM VIAL) Sodium Chloride 100 ML (SODIUM CHLORIDE 0.9% 100 ML) Piperacillin Sod/ 3.375 GM X1ED STA 03/27 1721 DC 03/27 Tazobactam Sod IV 03/27 1750 1743 (ZOSYN 3.375 GM VIAL) Sodium Chloride 100 ML (SODIUM CHLORIDE 0.9% 100 ML) Central Nervous System Agents Sig/David Start time Last Medication Dose Route Stop Time Status Admin Morphine Sulfate 4 MG Q4H PRN PRN 03/27 1730 AC 03/28 (morphine SULFATE) IV 03/28 1622 0923 Ketorolac 30 MG X1ED STA 03/27 1513 DC 03/27 Tromethamine IV 03/27 1514 1601 (TORADOL) Diagnostic Agents Sig/David Start time Last Medication Dose Route Stop Time Status Admin Iopamidol 0 .STK-MED ONE 03/27 1628 DC 03/27 (ISOVUE-300 100ML) .ROUTE 1631 Electrolytic, Caloric, And Rashawn Sig/David Start time Last Medication Dose Route Stop Time Status Admin Sodium Chloride 1,000 ML .Q10H 03/27 1945 AC 03/28 (SODIUM CHLORIDE IV 04/26 1944 0425 0.9%) Sodium Chloride 1,000 ML X1ED STA 03/27 1722 DC (SODIUM CHLORIDE IV 03/28 0321 0.9%) Sodium Chloride 1,000 ML X1ED STA 03/27 1513 DC 03/27 (SODIUM CHLORIDE IV 03/27 1612 1600 0.9%) Gastrointestinal Drugs Sig/David Start time Last Medication Dose Route Stop Time Status Admin Ondansetron HCl 4 MG Q6H PRN PRN 03/27 1730 AC 03/27 (ZOFRAN 2ML) IV 03/28 1622 1743 Ondansetron HCl 4 MG X1ED STA 03/27 1513 DC 03/27 (ZOFRAN 2ML) IV 03/27 1514 1601 Allergies: Coded Allergies: No Known Drug Allergies (03/27/19) Review of Systems Constitutional: Denies: chills, fatigue, fever. Skin: Denies: abrasion, bruising, contusion. Allergy/Immun: Denies: allergic reaction, anaphylaxis, hives. Eyes: Denies: redness, discharge, visual loss/blurred. ENT: Denies: ear drainage, ear ringing, sinus problem. Respiratory: Denies: MARINELLI (dyspnea on exertion), productive cough (sputum), SOB. Cardiovascular: Denies: chest pain, MARINELLI (dyspnea on exertion), edema. GI: Reports: abdominal pain, hematemesis, nausea, vomiting. Denies: diarrhea, hematochezia, melena. : Denies: dysuria, flank pain, frequency. Musculoskeletal: Denies: arthritis, joint pain, myalgias. Heme: Denies: bleeding, bruising, petechiae. Endocrine: Denies: cold intolerance, weight gain, weight loss. Neuro: Denies: bladder dysfunction, change in LOC, confusion. Psych: Denies: agitation, anxiety, confusion. Objective General VS/I O: Vital Signs: Date Time Temp Pulse Resp B/P B/P Pulse O2 O2 Flow FiO2 Mean Ox Delivery Rate 03/28 0800 97.5 71 18 107/69 81.8 100 Room air 03/28 0055 97.5 65 16 136/76 96.2 99 Room air 03/27 1850 97.7 65 16 131/89 102.8 100 Room air 03/27 1839 98.1 77 18 124/84 97 99 03/27 1459 97.4 75 20 135/90 105 100 24 hour I O ending at 0700: 03/28 0700 03/27 1900 Intake Total 1050.00 Output Total 600 Balance 450.00 Intake, IV 1050.00 Output, 0 Gastric Drainage Output, Urine 600 Patient 68 kg Weight Weight Stated/Reported Measurement Method Medications: Active Meds + DC'd Last 24 Hrs Piperacillin Sod/Tazobactam Sod 3.375 GM Q6H IV Sodium Chloride 100 ML Sodium Chloride 1,000 ML .Q10H IV Morphine Sulfate 4 MG Q4H PRN PRN IV Ondansetron HCl 4 MG Q6H PRN PRN IV Sodium Chloride 1,000 ML X1ED STA IV (DC) Piperacillin Sod/Tazobactam Sod 3.375 GM X1ED STA IV (DC) Sodium Chloride 100 ML Iopamidol 0 .STK-MED ONE .ROUTE (DC) Ketorolac Tromethamine 30 MG X1ED STA IV (DC) Ondansetron HCl 4 MG X1ED STA IV (DC) Sodium Chloride 1,000 ML X1ED STA IV (DC) Physical Exam General appearance: alert, awake, oriented, no acute distress Head/Eyes: atraumatic, normal conjunctiva/sclera, normocephalic ENT: moist mucosal membranes, normal dentition, normal nose Neck: normal thyroid, no JVD, no masses or swelling Cardiovascular: normal capillary refill, normal heart sounds, regular rate rhythm Respiratory: aerating well, clear to auscultation, symmetric expansion Abdomen: tenderness, normal bowel sounds, soft Genitourinary: no bladder distention, no flank pain, no post Rectal: deferred Extremities: normal range of motion, no calf tenderness, no edema Musculoskeletal: painless range of motion, no CVA tenderness, no muscle spasm Neuro/INDUSTRIAL COOK: alert, oriented X 3, CNII-XII intact Skin: dry, intact, normal color Lymphatics: neck normal, no lymphadenopathy Psychiatry: normal affect, normal judgment/insight, normal mood Results Findings/Data: Laboratory Tests 03/27 1543 Chemistry Sodium (134.0 - 147.0 mmol/l) 136 Potassium (3.6 - 5.2 mmol/L) 3.5 L Chloride (98.0 - 107.0 mmol/l) 101 Carbon Dioxide (21.0 - 33.0 mmol/l) 26.3 Anion Gap (0 - 20) 12.2 BUN (7.0 - 18.0 mg/dl) 19 H Creatinine (0.60 - 1.30 mg/dL) 1.13 Est GFR ( Amer) (133 - 145 mL/min) 100 L Est GFR (Non-Af Amer) (110 - 120 mL/min) 83 L Glucose (70.0 - 110.0 mg/dl) 92 Calcium (8.0 - 10.5 mg/dl) 9.7 Total Bilirubin (0.0 - 1.0 mg/dl) 0.7 AST (15.0 - 37.0 Units/L) 13 L ALT (12.0 - 78.0 Units/L) 19 Total Alk Phosphatase (50.0 - 136.0 Units/L) 103 Total Protein (6.0 - 8.1 GM/DL) 8.8 H Albumin (3.2 - 4.7 gm/dL) 4.4 Lipase (65.0 - 230.0 Units/L) 56 L Laboratory Tests 03/27 1543 Hematology WBC (4.5 - 11.0 K/mm3) 7.5 RBC (4.40 - 5.90 M/mm3) 5.47 Hgb (13.0 - 17.0 gm/dL) 15.6 Hct (36.0 - 48.0 %) 48.7 H MCV (80.0 - 94.0 UM3) 89.0 MCH (25.5 - 32.5 UUG) 28.5 MCHC (29.0 - 35.5 gm/dL) 32.0 RDW (11.5 - 15.0 %) 14.0 Plt Count (150 - 400 K/mm3) 302 MPV (7.4 - 10.4 fl) 11.1 H Neut % (Auto) (49.0 - 76.0 %) 77.6 H Lymph % (Auto) (23.0 - 38.0 %) 11.8 L Leslie % (Auto) (1.0 - 10.0 %) 8.8 Eos % (Auto) (1.0 - 5.0 %) 0.8 L Baso % (Auto) (0.0 - 1.0 %) 0.7 Neut # (Auto) (2.4 - 6.3 K/mm3) 5.9 Lymph # (Auto) (1.2 - 4.0 K/mm3) 0.9 L Leslie # (Auto) (0.0 - 0.6 K/mm3) 0.7 H Eos # (Auto) (0.0 - 0.7 K/MM3) 0.1 Baso # (Auto) (0.0 - 0.2 K/mm3) 0.1 Immature Gran % (0.0 - 0.4 %) 0.3 Immature Gran # (0.00 - 0.07 x10 3/uL) 0.02 Laboratory Tests 03/27 1543 Urines Urine Color YELLOW Urine Appearance CLEAR Urine pH (5.0 - 9.0) 8.0 Ur Specific [place] (1.000 - 1.030) 1.010 Urine Protein (NEGATIVE mg/dl) 15 mg/dl H Urine Glucose (UA) (NORMAL mg/dl) NORMAL Urine Ketones (NEGATIVE mg/dl) NEGATIVE Urine Blood (NEGATIVE [place]/micL) NEGATIVE Urine Nitrite (NEGATIVE) NEGATIVE Urine Bilirubin (NEGATIVE mg/dL) NEGATIVE Urine Urobilinogen (NORMAL mg/dl) NORMAL Ur Leukocyte Esterase (NEGATIVE Bambi/micL) 25 Bambi/micL H Urine RBC (0 - 3 RBC/HPF) 0-2 Urine WBC (NONE WBC/HPF) 5-10/HPF Ur Epithelial Cells (0 - 3 EPI/HPF) 5-10 H Ur Renal Epithelial Cell FEW Urine Bacteria (NONE) FEW Urine Mucus 2+ Radiology data: Recent Impressions: CAT SCAN - CT ABD PELVIS W/CONT 03/27 1620 Report Impression - Status: SIGNED Entered: 03/27/2019 1706 IMPRESSION: Terminal ileum thickening and hyperenhancement, as well as thickening of ascending, transverse and descending colon, findings are most suggestive of inflammatory etiology such as Crohn's/UC. Recommend GI consultation and colonoscopy when clinically feasible. Fecalization and dilatation of jejunal bowel loops at 3.4 cm, indicative of bowel obstruction. 1.7 cm indeterminate low-attenuation structure in posterior right hepatic lobe, correlate with sonography. Impression By: [email or web address] - Dana Milton M.D. Diagnosis, Assessment Plan Problem List/A P: 1. Abdominal pain 2. Colonic obstruction 3. Nausea vomiting Orders: Procedure Date/time Status GASTROENTEROLOGY CONSULT 03/28 0846 Active Plan discussed with: patient, nurse Free Text DxA P Notes Free Text DxA P Notes: 1. Colonic obstruction -Continue Zosyn 3.375g -Continue IVF (NaCl @ 50mL/hr) -CT scan showed obstruction with probable inflammatory etiology -Having bowel movements, last one was yesterday -GI consulted for further workup, colonoscopy recommended 2. Abdominal pain -Continue morphine PRN -Continue Zofran 4mg Q6H PRN -Pain controlled 3. Nausea -Continue zofran 4mg -Stabilized 4. Vomiting -Last episode was yesterday -Has NG tube in, blood reported by pt that was seen yesterday -Stabilized 5. UTI, asymptomatic -UA showed positive leuk esterase and few WBCs 6. Possible Crohn's/UC -CT scan showed possible inflammatory etiology -GI consult on board for further workup 7. Indeterminate liver structure -Follow up with US of liver at 1612 at 1215 RPT #:[id number] END OF REPORT [facility] 2019-03-27 15:13:00 [facility] ([facility] EMERGENCY PROVIDER REPORT REPORT#:[id number] REPORT STATUS: Signed DATE:03/27/19 TIME: 1513 PATIENT: TALIB OCONNELL UNIT #: [id number] ROOM/BED: [place] [id number] AGE: 28 SEX: M PCP PHYS: No Primary Care Physician SERVICE AUTHOR: Vilma Steven MD * ALL edits or amendments must be made on the electronic/computer document * HPI-Abd Pain M Under 40 General Confirmed Patient Yes Initial Greet Date/Time 03/27/19 1502 Presentation Chief Complaint Abdominal pain Hx Obtained From Patient Sudden in Onset? Yes Onset Occurred Days ago (3) Symptom Duration Since onset Progression since Onset Waxes and wanes Caused by No trauma by history Location Diffuse Quality Painful Radiation Does not radiate. Migration/Movement None Severity: Onset Moderate Severity: Current Pain level 10 out of 10 Associated with Reports: Nausea, Vomiting. Denies: Diarrhea, Dysuria, Fever, Hematuria. Associated Other Pt denies other symptoms Exacerbated by Nothing Relieved by Nothing Free Text HPI Notes Free Text HPI Notes 28 y/o M with no significant PMHx presents to the ED c/o diffuse abd pain x3 days. Pt reports the pain has been constant since onset but waxes and wanes in severity. Currently in ED, pt rates pain 10/10. Associated sx include nausea and vomiting (x4 episodes today). Pt reports he is not tolerating PO. Reports he took an OTC nausea pill this AM but "it didn't stay down". Denies fever, diarrhea, hematuria, or dysuria. Pt seen in waiting room. Portions of this section were scribed by Diane Crawford on 03/27/19 at 1721 Risk-Abd Pain M Under 40 )( Torsion Risk factors reviewed Portions of this section were scribed by Diane Crawford on 03/27/19 at 1525 Review of Systems ROS Statements All systems rev neg except as marked. Focused Review of Systems Constitutional Denies: Chills, Fever. Respiratory Denies: Cough, productive, Shortness of breath, Wheezing. Cardiovascular Denies: Chest pain, Palpitations. GI Reports: Abdominal pain, Nausea, Vomiting. Denies: Diarrhea. Male Denies: Dysuria, Hematuria. Musculoskeletal Denies: Myalgia, Neck pain. Additional Review of Systems Eyes Denies: Blurred bilat, Discharge bilat, Photophobia. Ears/Nose/Throat Denies: Nasal congestion, Nose bleeding, Sore throat. Hematologic Denies: Bruising, Petechiae. Skin Denies: Rash, Swelling. Allergy/Immun Denies: Rhinorrhea, Sneezing. Neurologic Denies: Headache, Lightheaded. Portions of this section were scribed by Diane Crawford on 03/27/19 at 1525 Past Medical History - Adult Stated Complaint ABD PAIN SINCE TUESDAY Allergies Coded Allergies: No Known Drug Allergies (03/27/19) Review of Nursing Notes Rev avail, and agree Pt reports no significant: Past medical history Additional Surgical History Arm surgery Smoking status for patients 13 years old or older: Current every day smoker Portions of this section were scribed by Diane Crawford on 03/27/19 at 1525 Physical Exam Vital Signs Vital Signs First Documented: Result Date Time Pulse Ox 100 03/27 1459 B/P 135/90 03/27 1459 B/P Mean 105 03/27 1459 Temp 36.3 03/27 1459 Pulse 75 03/27 1459 Resp 20 03/27 1459 Last Documented: Result Date Time Pulse Ox 100 03/27 1459 B/P 135/90 03/27 1459 B/P Mean 105 03/27 1459 Temp 36.3 03/27 1459 Pulse 75 03/27 1459 Resp 20 03/27 1459 Review of Vital Signs Reviewed Focused PE General/Const General/Const Awake, Alert, Well developed MS Head Head Normocephalic Eyes Eyes PERRL, EOMI, Conjunctiva NL Ears/Nose/Throat Ears/Nose/Throat Airway patent, Mucous membranes moist, Pharynx NL Resp/Chest Respiratory/Chest Breath sounds NL, Breath sounds = bilat, No respiratory distress Cardiovascular Cardiovascular Heart rate NL, Regular rhythm, Heart sounds NL, Pulses = bilaterally Abdomen/GI Abdomen/GI Soft, No rebound, No distention Text/Dict Notes No point tenderness. Tenderness/Guarding/Rebound Tender diffuse. MS Back Back Inspection NL, Full range of motion, Painless range of motion Skin Skin Color NL, Warm, Dry Neurologic Neurologic Oriented X3, Speech NL, No motor deficits, No sensory deficits Portions of this section were scribed by Diane Crawford on 03/27/19 at 1525 Interpretation Diagnostics Lab Results Interpretation Results Laboratory Tests 03/27/19 1543: [Embedded Image Not Available] Laboratory Tests: 03/27 154 Chemistry Sodium (134.0 - 147.0 mmol/l) 136 Potassium (3.6 - 5.2 mmol/L) 3.5 L Chloride (98.0 - 107.0 mmol/l) 101 Carbon Dioxide (21.0 - 33.0 mmol/l) 26.3 Anion Gap (0 - 20) 12.2 BUN (7.0 - 18.0 mg/dl) 19 H Creatinine (0.60 - 1.30 mg/dL) 1.13 Est GFR ( Amer) (133 - 145 mL/min) 100 L Est GFR (Non-Af Amer) (110 - 120 mL/min) 83 L Glucose (70.0 - 110.0 mg/dl) 92 Calcium (8.0 - 10.5 mg/dl) 9.7 Total Bilirubin (0.0 - 1.0 mg/dl) 0.7 AST (15.0 - 37.0 Units/L) 13 L ALT (12.0 - 78.0 Units/L) 19 Total Alk Phosphatase (50.0 - 136.0 Units/L) 103 Total Protein (6.0 - 8.1 GM/DL) 8.8 H Albumin (3.2 - 4.7 gm/dL) 4.4 Lipase (65.0 - 230.0 Units/L) 56 L Hematology WBC (4.5 - 11.0 K/mm3) 7.5 RBC (4.40 - 5.90 M/mm3) 5.47 Hgb (13.0 - 17.0 gm/dL) 15.6 Hct (36.0 - 48.0 %) 48.7 H MCV (80.0 - 94.0 UM3) 89.0 MCH (25.5 - 32.5 UUG) 28.5 MCHC (29.0 - 35.5 gm/dL) 32.0 RDW (11.5 - 15.0 %) 14.0 Plt Count (150 - 400 K/mm3) 302 MPV (7.4 - 10.4 fl) 11.1 H Neut % (Auto) (49.0 - 76.0 %) 77.6 H Lymph % (Auto) (23.0 - 38.0 %) 11.8 L Leslie % (Auto) (1.0 - 10.0 %) 8.8 Eos % (Auto) (1.0 - 5.0 %) 0.8 L Baso % (Auto) (0.0 - 1.0 %) 0.7 Neut # (Auto) (2.4 - 6.3 K/mm3) 5.9 Lymph # (Auto) (1.2 - 4.0 K/mm3) 0.9 L Leslie # (Auto) (0.0 - 0.6 K/mm3) 0.7 H Eos # (Auto) (0.0 - 0.7 K/MM3) 0.1 Baso # (Auto) (0.0 - 0.2 K/mm3) 0.1 Immature Gran % (0.0 - 0.4 %) 0.3 Immature Gran # (0.00 - 0.07 x10 3/uL) 0.02 Urines Urine Color YELLOW Urine Appearance CLEAR Urine pH (5.0 - 9.0) 8.0 Ur Specific [place] (1.000 - 1.030) 1.010 Urine Protein (NEGATIVE mg/dl) 15 mg/dl H Urine Glucose (UA) (NORMAL mg/dl) NORMAL Urine Ketones (NEGATIVE mg/dl) NEGATIVE Urine Blood (NEGATIVE [place]/micL) NEGATIVE Urine Nitrite (NEGATIVE) NEGATIVE Urine Bilirubin (NEGATIVE mg/dL) NEGATIVE Urine Urobilinogen (NORMAL mg/dl) NORMAL Ur Leukocyte Esterase (NEGATIVE Bambi/micL) 25 Bambi/micL H Urine RBC (0 - 3 RBC/HPF) 0-2 Urine WBC (NONE WBC/HPF) 5-10/HPF Ur Epithelial Cells (0 - 3 EPI/HPF) 5-10 H Ur Renal Epithelial Cell FEW Urine Bacteria (NONE) FEW Urine Mucus 2+ Recent Impressions: CAT SCAN - CT ABD PELVIS W/CONT 03/27 1620 Report Impression - Status: SIGNED Entered: 03/27/2019 1706 IMPRESSION: Terminal ileum thickening and hyperenhancement, as well as thickening of ascending, transverse and descending colon, findings are most suggestive of inflammatory etiology such as Crohn's/UC. Recommend GI consultation and colonoscopy when clinically feasible. Fecalization and dilatation of jejunal bowel loops at 3.4 cm, indicative of bowel obstruction. 1.7 cm indeterminate low-attenuation structure in posterior right hepatic lobe, correlate with sonography. Impression By: JahairaANSYuriy Milton M.D. Lab Imaging Statement Laboratory radiographic studies reviewed and considered in the medical decision-making. Point of Care Testing Urinalysis Interpretation UA Reviewed Pulse Oximetry Pulse Ox % 100 On: Room air Interpretation Interpreted by me, Pulse oximetry normal Time [address] Abdomen/Pelvis Study type IV contrast Text/Dict Note IMPRESSION: Terminal ileum thickening and hyperenhancement, as well as thickening of ascending, transverse and descending colon, findings are most suggestive of inflammatory etiology such as Crohn's/UC. Recommend GI consultation and colonoscopy when clinically feasible. Fecalization and dilatation of jejunal bowel loops at 3.4 cm, indicative of bowel obstruction. 1.7 cm indeterminate low-attenuation structure in posterior right hepatic lobe, correlate with sonography. Interpretation/Wet Read by Interpret - Radiologist Reviewed by ED physician Portions of this section were scribed by Diane Crawford on 03/27/19 at 1721 Re-Evaluation MDM )( Re-Evaluation/Progress #1 Time of Re-Eval 1721 )( Re-Eval Status Unchanged ED Course Medication(s) Ordered Medication(s) Ordered: Anti-Infective Agents Sig/David Start time Last Medication Dose Route Stop Time Status Admin Piperacillin Sod/ 3.375 GM Q6H 03/28 0000 DC 03/29 Tazobactam Sod IV 04/13 1700 0527 Sodium Chloride 100 ML Consultation Consultation Referral/Consult Name Francine Ledezma MD Remote Broadcast Technician Called Surgeon Requested Call Time 172 Requested Call Date 03/27/19 Call Returned Call returned Call Returned Time 172 Call Returned Date 03/27/19 Remote Broadcast Technician Will see patient Free Text Consult Notes Requested pt be put on Abx. Portions of this section were scribed by Diane Crawford on 03/27/19 at 1721 Patient Discharge Departure Vital Signs/Condition Vital Signs First Documented: Result Date Time Pulse Ox 100 03/27 1459 B/P 135/90 / 1459 B/P Mean 105 / 1459 Temp 36.3 / 1459 Pulse 75 / 1459 Resp 20 03/27 1459 Last Documented: Result Date Time Pulse Ox 100 03/27 1459 B/P 135/90 / 1459 B/P Mean 105 / 1459 Temp 36.3 / 1459 Pulse 75 / 1459 Resp 20 03/27 1459 All vital signs available at the time of this entry have been reviewed. Condition Improved Clinical Impression Clinical Impression Primary Impression: SBO (small bowel obstruction) Secondary Impressions: Colitis Disposition Decision Admit Admit Physician Name Jv Peña MD Admit Physician Hospitalist Request Time 1723 Request Date 03/27/19 )( Admission Accepts Yes )( Accepted Time 172 )( Accepted Date 03/27/19 Call Information will see patient, agrees with eval, agrees with plan Discharge/Care Plan Counseled Regarding Diagnosis, Lab results, Imaging studies, Need for admission, Smoking cessation Admit Note I have spoken with the patient and/or caregivers. I have explained the patient's condition, diagnoses and treatment plan based on the information available to me at this time. I have answered the patient's and/or caregiver's questions and addressed any concerns. The patient and/or caregivers have as good an understanding of the patient's diagnosis, condition and treatment plan as can be expected at this point. The patient has been stabilized within the capability of the emergency department. The patient will be transported for further care and management or will be moved to an observation or inpatient service. I have communicated with the staff or medical practitioner taking over this patient's care. Quality Measures Smoking Cessation Screened, tobacco user, Tobacco cess intervention Tobacco Screening/Cessation 18 years or older, Tobacco user, Smoking cessation offered, Counseled 3-10 minutes Smoking Cessation Counseling The patient was questioned regarding their smoking habits, and I have determined , as the patient's treating physician, that there is a medical necessity in regards to the patient's medical condition to provide smoking cessation program education. The patient was advised to stop smoking and counseled for a period of greater than 3 minutes. The patient was instructed to follow up with a primary care physician for smoking cessation and given information regarding local smoking cessation programs in the area. The patient received detailed discharge instructions as to how to stop smoking. The patient expressed an understanding of the need to follow up and the plan for smoking cessation. Supervising Physician Note Scribe Statement Diane Crawford, 03/27/19 1526, scribing for and in the presence of [Dr. Steven]. Signed By: Diane Crawford, 03/27/19 1526 Provider Scribed Statement I personally performed the services described in this documentation and reviewed the documentation that was dictated to the scribe(s) in my presence, and it accurately records my words and actions. Vilma Steven, 03/29/19 Portions of this section were scribed by Diane Crawford on 03/27/19 at 1721 at 2258 RPT #:[id number] END OF REPORT [facility]
[2025-01-30] MEDS ORDERED: METHYLPREDNISOLONE 125 MG INJ ONE (04:31)
[2025-01-30] MEDS ORDERED: MORPHINE 4 MG/ML SYR ONE ×2 (04:32→05:26)
[2025-01-30] MEDS ORDERED: NA CHLORIDE 0.9% 1,000 ML ONE ×2 (04:32→05:27)
[2025-01-30] MEDS ORDERED: Ciprofloxacin 200mg IV 200 MG/100 ML IV.SOLN. IV ONE (04:32)
[2025-01-30] MEDS ORDERED: METRONIDAZOLE 500mg IVPB 500 MG/100 ML BAG IV ONE ×2 (04:32→12:36)
[2025-01-30] MEDS ORDERED: FAMOTIDINE 20 MG/2 ML VIAL IV ONE (04:32)
[2025-01-30] MEDS ORDERED: ONDANSETRON 4 MG/2 ML VIAL ONE ×2 (04:32→14:43)
[2025-01-30 04:56] LABS: Absolute Eosinophils 0.1 K/uL (0-0.5); Absolute Lymphocytes (CBC) 1.1 K/uL (0.7-4.9); Absolute Monocytes 1.8 K/uL (0.1-1.3); Absolute Neutrophil 10.3 K/uL (1.8-8.0); Basophils % 0.3 % (0-1.3); Eosinophils % 0.4 % (0-4.4); Hemoglobin 14.5 g/dL (13.6-17.9); MCH 29.5 pg (27.0-35.0); MCHC 33.8 g/dL (32.0-36.0); MCV 87.4 fL (80-100); MPV 8.9 fL (7.6-11.3); Monocytes % 13.4 % (3.3-12.3); Neutrophils % 77.9 % (41.7-73.7); Nucleated Red Blood Cells % 0.1 % (0-0); Platelets 345 thou/uL (152-406); RBC Red Blood Cell Count 4.93 M/uL (4.33-5.43); Red Cell Distribution Width 13.4 % (12.1-15.2)
[2025-01-30 05:13] LABS: Albumin 3.5 g/dL (3.4-5.0); Albumin/Globulin Ratio 0.7 (1.1-1.8); Anion Gap 8.8 mEq/L (5.0-15.0); Bilirubin Total 0.6 mg/dL (0.2-1.0); Globulin 4.7 g/dL (2.3-3.5); Potassium 3.8 mEq/L (3.5-5.1); Protein, Total 8.2 g/dL (6.4-8.2)
--- NOTE | 2025-01-30 06:21 | RAD REPORT ---
EXAMINATION: CT ABDOMEN PELVIS WITH IV CONTRAST CLINICAL INDICATION: Male, 34 years old.ABD PAIN TECHNIQUE: CT abdomen and pelvis was performed, after the administration of IV contrast, as per [facility] protocol. Axial, sagittal and coronal reconstructions were obtained. One or more of the following dose reduction techniques were used: Automated exposure control, adjustment of the mA and/o r kV according to patient size, and/or iterative reconstruction. Unless otherwise specified, incidental findings do not require dedicated imaging follow-up. [id number]. COMPARISON: No prior exam. FINDINGS: LOWER CHEST: No acute process identified.Normal heart size. UPPER GI: No significant focal abnormality. LIVER: Hepatic steatosis. Benign appearing and/or stable lesions are identified. No suspicious mass. GALLBLADDER/BILE DUCTS: No biliary ductal dilatation. PANCREAS: No mass, ductal dilation, or treva-pancreatic fluid. SPLEEN: Unremarkable. ADRENALS: No adrenal masses. KIDNEYS AND URETERS: No hydronephrosis.No suspicious renal mass.No renal calculi identified. ABDOMINAL AORTA AND OTHER VESSELS: Normal caliber aorta and IVC. PERITONEUM: No abnormal free fluid. No free air. LYMPH NODES: No pathologic lymphadenopathy. ABDOMINAL WALL: Unremarkable SMALL BOWEL/COLON: Rectal wall thickening. Perirectal abscess measuring 2.8 x 4.1 x 1.5 cm. This is p resent from about the 4:00 to 10:00 position and is near the anorectal verge.Normal appendix. URINARY BLADDER: Underdistended but grossly unremarkable. REPRODUCTIVE ORGANS: No pathologic process. MUSCULOSKELETAL: No acute or suspicious osseous abnormality. ADDITIONAL FINDINGS: None. IMPRESSION: Perirectal abscess measuring over 4 cm. Electronically signed by: Wilber Frye MD 01/30/2025 06:15 AM [facility] Due to temporary technical issues with the PACS/[employer] Receipts reporting system, reports are being kelsy d by the in-house radiologist without review as a courtesy to ensure prompt reporting the interpreting radiologist is fully responsible for the content of the report. Transcribed Date/Time: 01/30/2025 6:20 AM
--- NOTE | 2025-01-30 06:40 | EDPHYS ---
Physician Documentation [facility] Name: Talib Oconnell Age: 34 yrs Sex: Male : 1990 Arrival Date: 01/30/2025 Time: 01:37 Bed 8 Private MD: JACQUI Physician Fuad De La Garza HPI: 01/30 02:13 This 34 yrs old Black Male presents to ER via Ambulatory with complaints of Hemorrhoids.rosalina 02:13 The patient presents with abdominal pain in the upper abdomen, in the lower abdomen. rosalina Onset: The symptoms/episode began/occurred 3 day(s) ago. The patient presents to the emergency department with pain in the rectal area, that is moderate. Onset: The symptoms/episode began/occurred 2 day(s) ago. Context: the patient has a known history of hemorrhoids. The symptoms do not radiate. Associated signs and symptoms: none. Severity of pain: At its worst the pain was moderate severe in the emergency department the pain is unchanged. Historical: - Allergies: 02:08 Sulfa (Sulfonamide Antibiotics); vc1 - PMHx: 02:08 Crohn's; vc1 - PSHx: 02:08 ABDOMINAL SURGERY (Crohn's); vc1 - Immunization history:: Client reports having NOT received the Covid vaccine. Flu vaccine is not up to date. - Infectious Disease History:: Denies. - Social history:: Smoking status: Patient reports the use of cigarette tobacco products, smokes one-half pack cigarettes per day. ROS: 02:13 Constitutional: Negative for fever, chills, and weight loss, Eyes: Negative for injury, rosalina pain, redness, and discharge, ENT: Negative for injury, pain, and discharge, Neck: Negative for injury, pain, and swelling, Respiratory: Negative for shortness of breath, cough, wheezing, and pleuritic chest pain, Back: Negative for injury and pain, : Negative for injury, bleeding, discharge, and swelling, MS/Extremity: Negative for injury and deformity, Skin: Negative for injury, rash, and discoloration, Neuro: Negative for headache, weakness, numbness, tingling, and seizure, Psych: Negative for depression, anxiety, suicide ideation, homicidal ideation, and hallucinations, Allergy/Immunology: Negative for hives, rash, and allergies, Endocrine: Negative for neck swelling, polydipsia, polyuria, polyphagia, and marked weight changes, 02:13 Cardiovascular: Positive for palpitations, 02:13 Abdomen/GI: Positive for abdominal pain, nausea, rectal pain, Exam: 02:13 Constitutional: This is a well developed, well nourished patient who is awake, alert, rosalina and in no acute distress. Head/Face: Normocephalic, atraumatic. Eyes: Pupils equal round and reactive to light, extra-ocular motions intact. Lids and lashes normal. Conjunctiva and sclera are non-icteric and not injected. Cornea within normal limits. Periorbital areas with no swelling, redness, or edema. ENT: Nares patent. No nasal discharge, no septal abnormalities noted. Tympanic membranes are normal and external auditory canals are clear. Oropharynx with no redness, swelling, or masses, exudates, or evidence of obstruction, uvula midline. Mucous membranes moist. Neck: Trachea midline, no thyromegaly or masses palpated, and no cervical lymphadenopathy. Supple, full range of motion without nuchal rigidity, or vertebral point tenderness. No Meningismus. Chest/axilla: Normal chest wall appearance and motion. Nontender with no deformity. No lesions are appreciated. Cardiovascular: Regular rate and rhythm with a normal S1 and S2. No gallops, murmurs, or rubs. Normal PMI, no JVD. No pulse deficits. Respiratory: Lungs have equal breath sounds bilaterally, clear to auscultation and percussion. No rales, rhonchi or wheezes noted. No increased work of breathing, no retractions or nasal flaring. Back: No spinal tenderness. No costovertebral tenderness. Full range of motion. Male : Normal genitalia with no discharge or lesions. Skin: Warm, dry with normal turgor. Normal color with no rashes, no lesions, and no evidence of cellulitis. MS/ Extremity: Pulses equal, no cyanosis. Neurovascular intact. Full, normal range of motion., bilateral aka Neuro: Awake and alert, GCS 15, oriented to person, place, time, and situation. Cranial nerves II-XII grossly intact. Motor strength 5/5 in all extremities. Sensory grossly intact. Cerebellar exam normal. Normal gait. Psych: Awake, alert, with orientation to person, place and time. Behavior, mood, and affect are within normal limits. 02:13 Abdomen/GI: Inspection: abdomen appears normal, Bowel sounds: normal, Palpation: mild abdominal tenderness, in the right lower quadrant and left lower quadrant, Rectal exam: tenderness, that is moderate, none, Liver: no appreciated palpable abnormalities, Hernia: not appreciated, 04:29 ECG was reviewed by the Attending Physician. [facility] Vital Signs: 02:07 BP 149 / 116; Pulse 113; Resp 18; Temp 98.7; Pulse Ox 99% ; Weight 68.04 kg; Height 5 vc1 ft. 8 in. ; Pain 8/10; 05:00 BP 136 / 80; Pulse 82; Resp 16; Pulse Ox 97% ; rk3 02:07 Body Mass Index 22.81 (68.04 kg, 172.72 cm) vc1 02:07 Pain Scale: Adult vc1 MDM: 01:53 Medical Screening Exam initiated rosalina 02:15 Differential diagnosis: hemorrhoids, fissure, abscess, pilonidal cyst, diverticulitis, rosalina GI Bleed, non-specific abd pain, pancreatitis, Prostatitis, Pyelonephritis, urinary tract infection. Data reviewed: vital signs, nurses notes, lab test result(s), radiologic studies, CT scan. Consideration of Admission/Observation Escalation of care including admission/observation considered. I considered the following discharge prescriptions or medication management in the emergency department Medications were administered in the Emergency Department. See MAR. Independent interpretation of the following test(s) in the Emergency Department CT Scan: My interpretation is ct ab/pel. Test considered but Not performed: Ultrasound no abd us. Care significantly affected by the following chronic conditions: ctohns. 01/30 02:12 Order name: CBC with Diff; Complete Time: 05:10 [facility] 01/30 02:12 Order name: CMP; Complete Time: 05:29 [facility] 01/30 02:12 Order name: Lipase; Complete Time: 05:29 [facility] 01/30 02:12 Order name: Urinalysis w/ reflexes [facility] 01/30 07:51 Order name: Basic Metabolic Panel [facility] 01/30 07:51 Order name: Basic Metabolic Panel [facility] 01/30 07:51 Order name: Basic Metabolic Panel [facility] 01/30 07:51 Order name: Basic Metabolic Panel [facility] 01/30 07:51 Order name: CBC with Automated Diff [facility] 01/30 07:51 Order name: CBC with Automated Diff [facility] 01/30 07:51 Order name: CBC with Automated Diff EDMS 01/30 07:51 Order name: CBC with Automated Diff [facility] 01/30 07:51 Order name: Magnesium [facility] 01/30 07:51 Order name: Magnesium EDMS 01/30 07:51 Order name: Magnesium EDMS 01/30 07:51 Order name: Magnesium EDMS 01/30 07:51 Order name: Phosphorus EDMS 01/30 07:51 Order name: Phosphorus EDMS 01/30 07:51 Order name: Phosphorus EDMS 01/30 07:51 Order name: Phosphorus EDMS 01/30 02:12 Order name: CT Abd/Pelvis - IV Contrast Only; Complete Time: 06:30 rosalina 01/30 07:51 Order name: CONS Physician Consult EDMS 01/30 02:12 Order name: IV Saline Lock; Complete Time: 04:20 rosalina 01/30 02:12 Order name: Labs collected and sent; Complete Time: 04:20 rosalina 01/30 04:51 Order name: Recheck Blood Pressure; Complete Time: 05:01 rosalina 01/30 06:30 Order name: NPO; Complete Time: 07:21 [facility] EC:29 Rate is 56 beats/min. Rhythm is regular. QRS [place] is Normal. NV interval is normal. QRS rosalina interval is normal. QT interval is normal. No Q waves. T waves are Normal. No ST changes noted. Clinical impression: Sinus bradycardia and No evidence of ischemia. Interpreted by me. Reviewed by me. Administered Medications: 04:44 Drug: Ciprofloxacin IVPB 400 mg 200 ml IVPB once over 60 mins Volume: 200 ml; Route: vc1 IVPB; Infused Over: 60 mins; Site: right antecubital; 13:31 Follow up: IV Status: Completed infusion bp 04:44 Drug: MethylPrednisoLONE IVP 125 mg IVP once Route: IVP; Site: right antecubital; vc1 13:31 Follow up: Response: No adverse reaction bp 04:44 Drug: NS 0.9% IV 1000 ml IV at 1 bolus Per protocol; to be given as a bolus over 60 vc1 minutes Route: IV; Rate: 1 bolus; Site: right antecubital; 13:30 Follow up: IV Status: Completed infusion bp 04:44 Drug: morphine IVP or IV 4 mg IVP once over 4 mins Route: IVP; Infused Over: 4 mins; vc1 Site: right antecubital; 13:30 Follow up: Response: No adverse reaction bp 04:45 Drug: Famotidine IVP 20 mg IVP once; dilute with 10 mL 0.9% NaCl; give over 2 minutes vc1 Route: IVP; Site: right antecubital; 13:31 Follow up: Response: No adverse reaction bp 04:45 Drug: Ondansetron IVP 4 mg IVP once; over 2 minutes Route: IVP; Site: right antecubital;vc1 13:32 Follow up: Response: No adverse reaction bp 04:45 Drug: metroNIDAZOLE IVPB 500 mg 100 ml IVPB at 200 ml/hr once over 30 mins Volume: 100 vc1 ml; Route: IVPB; Rate: 200 ml/hr; Infused Over: 30 mins; Site: right antecubital; 13:31 Follow up: IV Status: Completed infusion bp 05:40 Drug: morphine IVP or IV 4 mg IVP once over 4 mins Route: IVP; Infused Over: 4 mins; vc1 Site: right antecubital; 13:32 Follow up: Response: No adverse reaction bp 05:40 Drug: NS 0.9% IV 1000 ml IV at 1 bolus Per protocol; to be given as a bolus over 60 vc1 minutes Route: IV; Rate: 1 bolus; Site: right antecubital; 13:32 Follow up: IV Status: Completed infusion bp 05:53 Not Given (Physician Discretion): anusol-hcsuppository 25 mg 25 mg NV once vc1 Disposition Summary: 01/30/25 06:39 Hospitalization Ordered Notes: Hospitalization Status: Observation rosalina Provider: Suraj Laguna cha Condition: Stable rosalina Problem: new rosalina Symptoms: have improved rosalina Bed/Room Type: Standard rosalina Location: [facility] ER HOLD(01/30/25 09:25) kb3 Room Assignment: ERHOLD-(01/30/25 09:25) kb3 Diagnosis - Anal abscess - perirectal 4 cm rosalina - Elevated white blood cell count rosalina Discharge Instructions: - Discharge Summary Sheet rosalina - Abdominal Pain, Adult rosalina - Crohn's Disease rosalina - How to Take a Sitz Bath rosalina - Abdominal Pain, Adult, [id number]-Bqsu rosalina Forms: - Medication Reconciliation Form rosalina - SBAR form rosalina - Leadership Thank You Letter rosalina Prescriptions: - Colace 100 mg Oral Tablet - take 1 tablet ORAL route every 12 hours; 14 tablet; Refills: 0, Product [facility] Selection Permitted - Flagyl 500 mg Oral tablet - take 1 tablet ORAL route every 6 hours for 7 days; 28 tablet; Refills: 0, [facility] Product Selection Permitted - Pepcid 20 mg Oral tablet - take 1 tablet ORAL route every 12 hours for 21 days; 42 tablet; Refills: 0, [facility] Product Selection Permitted - Cipro 500 mg Oral Tablet - take 1 tablet ORAL route every 12 hours for 7 days; 14 tablet; Refills: 0, [facility] Product Selection Permitted - Anusol-HC 25 mg Rectal suppository - insert 1 suppository RECTAL route every 12 hours As needed; 10 suppository; [facility] Refills: 0, Product Selection Permitted - Medrol (Jeovanny) 4 mg Oral Tablets, Dose Pack - take 1 tablet ORAL route as directed - follow package instructions; 1 packet; [facility] Refills: 0, Product Selection Permitted - dicyclomine 20 mg Oral tablet - take 1 tablet ORAL route 4 times per day; 28 tablet; Refills: 0, Product rosalina Selection Permitted Signatures: Dispatcher [employer] EDMS Fuad De La Garza MD MD cha Calcote, Vanessa, RN RN vc1 Lauren Pena, RN RN kb3 Ryan Oneill RN bp Corrections: (The following items were deleted from the chart) 02:13 02:13 CBC+H.LAB.BRZ ordered. EDMS EDMS 02:13 02:13 COMPREHENSIVE METABOLIC PANEL+C.LAB.BRZ ordered. EDMS EDMS 02:13 02:13 LIPASE+C.LAB.BRZ ordered. EDMS EDMS 02:13 02:13 Urinalysis+U.LAB.BRZ ordered. EDMS EDMS 02:13 02:13 Abdomen Pelvis W Con+CT.RAD.BRZ ordered. EDMS EDMS 09: 06:39 Telemetry/MedSurg (observation) [facility] kb3 09:25 06:39 [facility] kb3
--- NOTE | 2025-01-30 06:40 | ER ---
Nurse's Notes [facility] Name: Talib Oconnell Age: 34 yrs Sex: Male : 1990 Arrival Date: 01/30/2025 Time: 01:37 Bed 8 Private MD: Diagnosis: Anal abscess-perirectal 4 cm;Elevated white blood cell count Presentation: 01/30 02:07 Chief complaint: Patient states: HEMORRHOIDS TIMES 2 DAYS, ABDOMINAL PAIN. Coronavirus vc1 screen: Client denies travel out of the [place] in the last 14 days. At this time, the client does not indicate any symptoms associated with coronavirus-19. Ebola Screen: Patient negative for fever greater than or equal to 101.5 degrees Fahrenheit, and additional compatible Ebola Virus Disease symptoms Patient denies exposure to infectious person. Patient denies travel to an Ebola-affected area in the 21 days before illness onset. No symptoms or risks identified at this time. Initial Sepsis Screen: Does the patient meet any 2 criteria? No. Patient's initial sepsis screen is negative. Does the patient have a suspected source of infection? No. Patient's initial sepsis screen is negative. Risk Assessment: Do you want to hurt yourself or someone else? Patient reports no desire to harm self or others. Onset of symptoms was January 28, 2025. Care prior to arrival: None. Activity prior to arrival: None. 02:07 Method Of Arrival: Ambulatory vc1 02:07 Acuity: SUNI 3 vc1 Triage Assessment: 09:37 General: Appears in no apparent distress. uncomfortable, Behavior is calm, cooperative, vc1 appropriate for age. Pain: Complains of pain in buttocks. Historical: - Allergies: 02:08 Sulfa (Sulfonamide Antibiotics); vc1 - PMHx: 02:08 Crohn's; vc1 - PSHx: 02:08 ABDOMINAL SURGERY (Crohn's); vc1 - Immunization history:: Client reports having NOT received the Covid vaccine. Flu vaccine is not up to date. - Infectious Disease History:: Denies. - Social history:: Smoking status: Patient reports the use of cigarette tobacco products, smokes one-half pack cigarettes per day. Screenin:37 [facility] ED Fall Risk Assessment (Adult) History of falling in the last 3 months, vc1 including since admission No falls in past 3 months (0 pts) Confusion or Disorientation No (0 pts) Intoxicated or Sedated No (0 pts) Impaired Gait No (0 pts) Mobility Assist Device Used No (0 pt) Altered Elimination No (0 pt) Score/Fall Risk Level 0 - 2 = Low Risk Oriented to surroundings. Abuse screen: Denies threats or abuse. Denies injuries from another. Nutritional screening: No deficits noted. Tuberculosis screening: No symptoms or risk factors identified. Assessment: 05:33 Reassessment: Patient appears in no apparent distress at this time. No changes from vc1 previously documented assessment. Patient and/or family updated on plan of care and expected duration. Pain level reassessed. Patient is alert, oriented x 3, equal unlabored respirations, skin warm/dry/pink. Vital Signs: 02:07 BP 149 / 116; Pulse 113; Resp 18; Temp 98.7; Pulse Ox 99% ; Weight 68.04 kg; Height 5 vc1 ft. 8 in. ; Pain 8/10; 05:00 BP 136 / 80; Pulse 82; Resp 16; Pulse Ox 97% ; rk3 02:07 Body Mass Index 22.81 (68.04 kg, 172.72 cm) vc1 02:07 Pain Scale: Adult vc1 ED Course: 01:46 Patient arrived in ED. gm2 01:53 Fuad De La Garza MD is Attending Physician. rosalina 02:08 Triage completed. vc1 02:08 Arm band placed on right wrist. vc1 02:09 Patient has correct armband on for positive identification. Bed in low position. Call vc1 light in reach. Pulse ox on. NIBP on. 02:45 Radiology exam delayed due to IV insertion attempt and/or patient not having nj appropriate IV at this time. 04:20 Initial lab(s) drawn, by mn, sent to lab. Inserted saline lock: 20 gauge in right rk3 forearm, using aseptic technique. Blood collected. Flushed with 10 mL NS. 04:44 Estefanía Abraham, AUDRA is Primary Nurse. vc1 05:30 CT Abd/Pelvis - IV Contrast Only In Process Unspecified. EDMS 06:34 Suraj Laguna is Hospitalizing Provider. [facility] 09:38 No provider procedures requiring assistance completed. Patient admitted, IV remains in vc1 place. Administered Medications: 04:44 Drug: Ciprofloxacin IVPB 400 mg 200 ml IVPB once over 60 mins Volume: 200 ml; Route: vc1 IVPB; Infused Over: 60 mins; Site: right antecubital; 13:31 Follow up: IV Status: Completed infusion bp 04:44 Drug: MethylPrednisoLONE IVP 125 mg IVP once Route: IVP; Site: right antecubital; vc1 13:31 Follow up: Response: No adverse reaction bp 04:44 Drug: NS 0.9% IV 1000 ml IV at 1 bolus Per protocol; to be given as a bolus over 60 vc1 minutes Route: IV; Rate: 1 bolus; Site: right antecubital; 13:30 Follow up: IV Status: Completed infusion bp 04:44 Drug: morphine IVP or IV 4 mg IVP once over 4 mins Route: IVP; Infused Over: 4 mins; vc1 Site: right antecubital; 13:30 Follow up: Response: No adverse reaction bp 04:45 Drug: Famotidine IVP 20 mg IVP once; dilute with 10 mL 0.9% NaCl; give over 2 minutes vc1 Route: IVP; Site: right antecubital; 13:31 Follow up: Response: No adverse reaction bp 04:45 Drug: Ondansetron IVP 4 mg IVP once; over 2 minutes Route: IVP; Site: right antecubital;vc1 13:32 Follow up: Response: No adverse reaction bp 04:45 Drug: metroNIDAZOLE IVPB 500 mg 100 ml IVPB at 200 ml/hr once over 30 mins Volume: 100 vc1 ml; Route: IVPB; Rate: 200 ml/hr; Infused Over: 30 mins; Site: right antecubital; 13:31 Follow up: IV Status: Completed infusion bp 05:40 Drug: morphine IVP or IV 4 mg IVP once over 4 mins Route: IVP; Infused Over: 4 mins; vc1 Site: right antecubital; 13:32 Follow up: Response: No adverse reaction bp 05:40 Drug: NS 0.9% IV 1000 ml IV at 1 bolus Per protocol; to be given as a bolus over 60 vc1 minutes Route: IV; Rate: 1 bolus; Site: right antecubital; 13:32 Follow up: IV Status: Completed infusion bp 05:53 Not Given (Physician Discretion): anusol-hcsuppository 25 mg 25 mg UT once vc1 Medication: 09:38 VIS not applicable for this client. vc1 Outcome: 06:39 Decision to Hospitalize by Provider. [facility] 09:38 Admitted to ER Hold. Please see [facility] for further documentation. vc1 09:38 Condition: stable 09:38 Instructed on the need for admit, 13:39 Patient left the ED. bd Signatures: Dispatcher [employer] EDMS Latrice Verma Corey, MD MD cha Jordan, Nathan nj Peltier, Brian, RN RN Estefanía Gutierres RN RN vc1 Opal Logan 2 Dominic Williamson rk3
[2025-01-30] MEDS ORDERED: HYDRALAZINE HCL 20 MG/ML VIAL IV PRN (07:42)
[2025-01-30] MEDS ORDERED: ACETAMINOPHEN 325 MG TABLET PO PRN (07:42)
[2025-01-30] MEDS ORDERED: MORPHINE 2 MG/ML SYR IV PRN (07:42)
--- NOTE | 2025-01-30 07:56 | P.HP ---
Certification for Inpatient Patient admitted to: Observation With expected LOS: <2 Midnights Patient will require the following post-hospital care: None Practitioner: I am a practitioner with admitting privileges, knowledge of patient current condition, hospital course, and medical plan of care. Services: Services provided to patient in accordance with Admission requirements found in Title 42 Section 412.3 of the Code of Federal Regulations Patient History Date of Service: 01/30/25 Reason for admission: 4 cm perirectal abscess History of Present Illness: Talib Oconnell is a 34 year old male with pmhx crohn's disease presents to the ED with rectal pain for 2 days. He reports he feels that his crohn's disease inflames off and on with his last bleeding episode a month ago. He reports marijuana, cigarettes, juuling, and vaping regularly. CT scan showing 4 cm perirectal abscess. Laboratory evaluation WBC 13.2. Talib will be admitted to hospitalist service for further treatement of [address] Reza consulted. Allergies Sulfa (Sulfonamide Antibiotics) Allergy (Verified 01/30/25 13:49) "UNSURE" WAS TOLD A KID ALLERGIC TO IT Home Medications: Ciprofloxacin HCl [Cipro] 500 mg PO BID #20 tablet 06/18/12 Hydrocodone Bit/Acetaminophen [Vicodin Es 7.5-750 mg Tablet] 1 - 2 each PO Q4HP PRN #30 tablet 06/18/12 metroNIDAZOLE [Flagyl] 250 mg PO TID #30 tablet 06/18/12 - Past Medical/Surgical History -: Crohns -: abdominal surgery - Family History Family History: Reviewed- Non-Contributory - Social History Smoking Status: Current every day smoker (juuling, vaping, cigarettes, marijuana) Alcohol use: No CD- Drugs: Yes Caffeine use: Yes Review of Systems Other: per HPI Physical Examination - Physical Exam General: Alert, In no apparent distress, Oriented x3 HEENT: Atraumatic, Normocephalic Neck: Supple, 2+ carotid pulse no bruit Respiratory: Clear to auscultation bilaterally, Normal air movement Cardiovascular: Normal pulses, Regular rate/rhythm, Normal S1 S2 Capillary refill: <2 Seconds Gastrointestinal: Normal bowel sounds, Soft and benign Musculoskeletal: No clubbing Integumentary: No rashes Neurological: Normal speech, Normal tone - Studies Laboratory Data (last 24 hrs) 01/30/25 01/30/25 04:17 04:17 WBC 13.20 H Hgb 14.5 Hct 43.0 Plt Count 345 Sodium 137 Potassium 3.8 BUN 15 Creatinine 1.09 Glucose 94 Total Bilirubin 0.6 AST 15 ALT 22 Alkaline Phosphatase 113 Lipase 13 Assessment and Plan - Plan Assessment and Plan 4 cm perirectal abscess Crohn's disease Leukocytosis -Cipro/flagyl -Gentle IVF -Dr. Reza consulted, plans for surgery today -NPO for surgery -pain control Substance abuse -reports cigarettes, marijauna, juuling, and vaping -cessation education provided DVT ppx SCD, surgery to clear for lovenox Full code LOS 24 hour OBS Discharge Plan: Home Plan to discharge in: 24 Hours - Advance Directives Does patient have a Living Will: No Does patient have a Durable POA for Healthcare: No
[2025-01-30] MEDS: NA CHLORIDE 0.9% 1,000 ML IV SCH (08:00)
[2025-01-30 09:07] LABS: Specific Gravity > 1.030 (1.005-1.030); Sqamous Epithelial <5 /HPF (None Seen); Urine Bacteria <20 /HPF (<20); Urine Bilirubin NEGATIVE (Negative); Urine Blood Negative (Negative); Urine Clarity Clear (Clear); Urine Color Light-Yellow (Yellow); Urine Culture Reflex Order NOT NEEDED; Urine Glucose NEGATIVE (Negative); Urine Ketones TRACE (Negative); Urine Microscopic Reflex YN ORDER UMIC; Urine Mucus Slight /HPF (None Seen); Urine Nitrite NEGATIVE (Negative); Urine Protein TRACE (Negative); Urine RBC <5 /HPF (None Seen); Urine Urobilinogen Normal (Normal); Urine WBC <5 /HPF (<5)
[2025-01-30 09:46] VITALS: BMI 22.8
[2025-01-30] MEDS: METRONIDAZOLE 500mg IVPB 500 MG/100 ML BAG IV SCH (13:00)
[2025-01-30] MEDS: Ringers Lactate 1,000 ML IV ONE (13:47)
[2025-01-30] MEDS ORDERED: FENTANYL CITR 100 MCG/2 ML ONE ×2 (14:43→15:52)
[2025-01-30] MEDS ORDERED: propofoL 200 MG/20 ML VIAL IV ONE (14:43)
[2025-01-30] MEDS ORDERED: MIDAZOLAM HCL 2 MG/2 ML INJ ONE (14:43)
[2025-01-30] MEDS ORDERED: LIDOCAINE 2% MPF 5 ML VIAL ONE (14:43)
[2025-01-30] MEDS ORDERED: SUCCINYLCHOLINE 20 MG/ML (10 ML) IV ONE (14:45)
[2025-01-30] MEDS ORDERED: dexAMETHasone 10 MG/ML VIAL ONE (15:27)
[2025-01-30] MEDS: METHYLENE BLUE 1% 10 ML VIAL ONE (15:54)
[2025-01-30] MEDS: LIDOCAINE HCL/EPINEPHRINE 20 ML MDV ONE (15:55)
[2025-01-30] MEDS: LIDOCAINE JELLY 2% 5 ML SYRINGE TOP ONE (16:14)
--- NOTE | 2025-01-30 16:14 | P.OP ---
Preoperative diagnosis: Perirectal Abscess Postoperative diagnosis: Perirectal Abscess Primary procedure: Exam under anesthesia Secondary procedure: Incision and Drainage of Perirectal Abscess Anesthesia: GETA + Local Estimated blood loss: <5cc Specimen: cultures Findings: ~ 2cm abscess near 6oclock position, multiple small fistulas Complications: None Transferred to: Recovery Room Condition: Good
[2025-01-30 16:58] VITALS: O2SAT 99
--- NOTE | 2025-01-30 17:22 | OP ---
Date of Procedure: 01/30/2025 Surgeon: Silvestre Reza MD, Preoperative Diagnosis: Perirectal abscess. Postoperative Diagnosis: Perirectal abscess. Procedure Performed: 1. Exam under anesthesia. 2. Incision and drainage of perirectal abscess. Anesthesia: General endotracheal plus local with 1% lidocaine with epinephrine. Estimated Blood Loss: Less than 5 cc. Specimen: Culture sent for both aerobic and anaerobic speciation. Findings: 2 cm abscess at the 6 o'clock position and multiple small superficial fistulas noted. Complication: None. Disposition: The patient was transferred to recovery room in good condition. Procedure In Detail: After informed consent was obtained, patient was brought to the operating room, prepped and draped in the usual sterile fashion, after adequate anesthesia was achieved. The patien t was positioned in the lithotomy position. I performed an exam under anesthesia. At this point, mu ltiple fistulas were noted. They were very superficial with just skin tags with multiple septations in the perianal area bridging along from the horizontal position down near the 6 o'clock position of the anus. At this point, I palpated an area near the coccyx and found there to be an area of fluctua nce in this area. I made a linear incision at the 6 o'clock position and ultimately opened this area up until abscess material was appreciated coming out through the suprasphincteric position. Signifi cant abscess material was appreciated, at this point. Culture sent for both aerobic and anaerobic sp eciation. I then palpated the area and digitized the loculations and cleared it out until completely empty. At this point, I irrigated the area once again and packed the wound with quarter-inch iodofo rm packing and placed a Gelfoam soaked in lidocaine in the perianal area. Additional anesthetic was given in the perianal region as well, at this point, and the patient had good hemostasis at the site. There was no additional hemostatic measures required at the end of the procedure, and a sterile ankit ssing then placed over top. The patient tolerated the procedure well without incident or complicatio n and transferred to PACU in good condition. All counts were correct at the end of the case. DAYRON/LAURA Voice ID: [id number] Report ID: [id number]
[2025-01-30] MEDS: HYDROMORPHONE HCL 1 MG/ML INJ IV PRN (18:33)
[2025-01-30] MEDS: CIPROFLOXACIN 400mg IV 400 MG/200 ML BAG IV SCH (20:39)
[2025-01-31 05:00] LABS: Absolute Basophils 0.1 K/uL (0-0.5); Absolute Lymphocytes (CBC) 0.8 K/uL (0.7-4.9); Absolute Neutrophil 22.3 K/uL (1.8-8.0); Basophils % 0.3 % (0-1.3); Hematocrit 37.1 % (39.6-49.0); Hemoglobin 12.4 g/dL (13.6-17.9); MCH 29.3 pg (27.0-35.0); MCHC 33.4 g/dL (32.0-36.0); MCV 87.7 fL (80-100); MPV 8.7 fL (7.6-11.3); Monocytes % 7.8 % (3.3-12.3); Neutrophils % 88.9 % (41.7-73.7); Platelets 326 thou/uL (152-406); RBC Red Blood Cell Count 4.24 M/uL (4.33-5.43); Red Cell Distribution Width 13.3 % (12.1-15.2)
[2025-01-31 05:35] LABS: Anion Gap 8.3 mEq/L (5.0-15.0); Magnesium 2.3 mg/dL (1.6-2.4); Potassium 4.3 mEq/L (3.5-5.1)
[2025-01-31 06:27] LABS: Band Neutrophils 2 % (0-1); Blood Morphology Comment NOT SEEN (NOT SEEN); Differential Total Cells Count 100; Lymphocytes 3 % (15-42); Monocytes 5 % (0-10); Platelet Estimate ADEQ; Segmented Neutrophils 90 % (40-80)
--- NOTE | 2025-01-31 13:29 | P.PN ---
Date of Service: 01/31/25 Subjective Uncomfortable s/p I and D perirectal abscess Encouraged good nutrition to promote healing ROS 10 point ROS as noted above, otherwise negative Physical Exam General: Alert and Oriented x3, uncomfortable HEENT: Atraumatic, Normocephalic Neck: Supple, 2+ carotid pulse no bruit Respiratory: Clear to auscultation bilaterally, Normal air movement, on RA Cardiovascular: Normal pulses, NSR, Normal S1 S2 Capillary refill: <2 Seconds Gastrointestinal: Normal bowel sounds, Soft on palpation Musculoskeletal: No clubbing Integumentary: No rashes Neurological: Normal speech, Normal tone Vitals Reviewed Problem list 4 cm perirectal abscess Crohn's disease Leukocytosis Substance abuse Assessment and Plan 4 cm perirectal abscess Crohn's disease Leukocytosis - Increased leukocytosis WBC 25.1 today - Continue Cipro/flagyl - Continue gentle IVF - Dr. Reza consulted, s/p I and D perirectal abscess - Daily dressing Daily: Remove all packing from perianal wound irrigate wound with sterile saline then repack with iodoform packing and placed a sterile dry dressing over the top - Follow wound cultures - pain control Substance abuse -reports cigarettes, marijauna, juuling, and vaping -cessation education provided DVT ppx SCD, surgery to clear for lovenox Full code LOS 24 hour OBS Discharge Plan: Home Plan to discharge in: 24 Hours
[2025-01-31] MEDS: HYDROCODONE/APAP 7.5/325 MG TAB PO PRN (18:50)
[2025-02-01 04:50] LABS: Absolute Basophils 0.2 K/uL (0-0.5); Absolute Eosinophils 0.1 K/uL (0-0.5); Absolute Lymphocytes (CBC) 1.6 K/uL (0.7-4.9); Absolute Monocytes 0.6 K/uL (0.1-1.3); Absolute Neutrophil 8.4 K/uL (1.8-8.0); Basophils % 1.6 % (0-1.3); Eosinophils % 1.1 % (0-4.4); Hematocrit 34.4 % (39.6-49.0); Hemoglobin 11.7 g/dL (13.6-17.9); Lymphocytes % 14.4 % (15.3-44.8); MCH 29.8 pg (27.0-35.0); MCV 87.7 fL (80-100); MPV 8.4 fL (7.6-11.3); Monocytes % 5.8 % (3.3-12.3); Neutrophils % 77.1 % (41.7-73.7); Platelets 304 thou/uL (152-406); RBC Red Blood Cell Count 3.92 M/uL (4.33-5.43); Red Cell Distribution Width 13.8 % (12.1-15.2)
[2025-02-01 05:09] LABS: Anion Gap 5.1 mEq/L (5.0-15.0); Phosphorus 2.8 mg/dL (2.5-4.9); Potassium 4.1 mEq/L (3.5-5.1)
--- NOTE | 2025-02-01 07:12 | P.PN ---
Date of Service: 02/01/25 Subjective ROS 10 point ROS as noted above, otherwise negative Physical Exam General: AAO x3, uncomfortable HEENT: Atraumatic, Normocephalic Neck: Supple, 2+ carotid pulse no bruit Respiratory: Clear to auscultation bilaterally, Normal air movement, on RA Cardiovascular: Normal pulses, NSR, Normal S1 S2 Capillary refill: <2 Seconds Gastrointestinal: Normal bowel sounds, Soft on palpation Musculoskeletal: No clubbing Integumentary: No rashes Neurological: Normal speech, Normal tone Vitals Reviewed Problem list 4 cm perirectal abscess Crohn's disease Leukocytosis Substance abuse Assessment and Plan 4 cm perirectal abscess Crohn's disease Leukocytosis-resolved - Increased leukocytosis WBC 25.1 today - Continue Cipro/flagyl - Continue gentle IVF - Dr. Reza consulted, s/p I and D perirectal abscess - Daily dressing Daily: Remove all packing from perianal wound irrigate wound with sterile saline then repack with iodoform packing and placed a sterile dry dressing over the top - Following wound cultures- growing gram negative rods - pain control- reports no allergy to morphine Substance abuse -reports cigarettes, marijauna, juuling, and vaping -cessation education provided DVT ppx SCD, surgery to clear for lovenox Full code LOS 24 hour OBS Discharge Plan: Home Plan to discharge in: 24 Hours
[2025-02-01 07:39] VITALS: TEMP 97.6
--- NOTE | 2025-02-01 09:07 | P.DS ---
Admission Date: 01/30/25 Discharge Date: 02/01/25 Disposition: ROUTINE DISCHARGE Discharge Condition: GOOD Reason for Admission: 4 cm perirectal abscess Brief History of Present Illness: Diagnosis 4 cm perirectal abscess s/p Incision and drainage of perirectal abscess Crohn's disease Leukocytosis Substance abuse HPI 01/31/25 Talib Oconnell is a 34 year old male with pmhx crohn's disease presents to the ED with rectal pain for 2 days. He reports he feels that his crohn's disease inflames off and on with his last bleeding episode a month ago. He reports marijuana, cigarettes, juuling, and vaping regularly. CT scan showing 4 cm perirectal abscess. Laboratory evaluation WBC 13.2. Talib will be admitted to hospitalist service for further treatement of [address] Reza consulted. Hospital Course: Talib was admitted and treated for the following diagnosis: 4 cm perirectal abscess s/p Incision and drainage of perirectal abscess Crohn's disease Leukocytosis Substance abuse Patient was seen by general surgery and had an I and D of perirectal abscess on 01/30, tolerating the procedure well He was treated with IV Cipro/flagyl, discharged with cipro and flagyl to complete the antibiotic course outpatient He was provided daily dressing changes as follows: Remove all packing from perianal wound irrigate wound with sterile saline then repack with iodoform packing and placed a sterile dry dressing over the top- Dressing CDI Dr. Reza will continue to follow wound cultures- growing gram negative rods reports cigarettes, marijauna, juuling, and vaping, cessation education provided WBC WNL Talib was seen on morning rounds, 02/01/25, hemodynamically stable. Dr Reza has evaluated and cleared for discharge with follow up in clinic. Cipro and Flagyl prescribed. Physical Exam General: AAO x3, uncomfortable HEENT: Atraumatic, Normocephalic Neck: Supple, 2+ carotid pulse no bruit Respiratory: Clear BBS, on RA Cardiovascular: Normal pulses, NSR, Normal S1 S2 Capillary refill: <2 Seconds Gastrointestinal: Normal bowel sounds, Soft on palpation Musculoskeletal: No clubbing Integumentary: No rashes Neurological: Normal speech, Normal tone Vital Signs/Physical Exam: Temp Pulse Resp BP Pulse Ox 97.6 F 59 16 133/60 97 02/01/25 04:00 02/01/25 04:00 02/01/25 05:10 02/01/25 04:00 02/01/25 05:10 Laboratory Data at Discharge: WBC 10.90 thou/uL (4.3-10.9) 02/01/25 04:21 Hgb 11.7 g/dL (13.6-17.9) L 02/01/25 04:21 Hct 34.4 % (39.6-49.0) L 02/01/25 04:21 Plt Count 304 thou/uL (152-406) 02/01/25 04:21 Sodium 141 mEq/L (136-145) 02/01/25 04:21 Potassium 4.1 mEq/L (3.5-5.1) 02/01/25 04:21 BUN 16 mg/dL (7-18) 02/01/25 04:21 Creatinine 0.88 mg/dL (0.70-1.30) 02/01/25 04:21 Glucose 104 mg/dL (74-106) 02/01/25 04:21 Phosphorus 2.8 mg/dL (2.5-4.9) 02/01/25 04:21 Magnesium 2.0 mg/dL (1.6-2.4) 02/01/25 04:21 Total Bilirubin 0.6 mg/dL (0.2-1.0) 01/30/25 04:17 AST 15 U/L (15-37) 01/30/25 04:17 ALT 22 U/L (16-61) 01/30/25 04:17 Alkaline Phosphatase 113 U/L (45-117) 01/30/25 04:17 Lipase 13 U/L (13-75) 01/30/25 04:17 Home Medications: Ciprofloxacin HCl [Cipro 500 MG Tablet] 500 mg PO BID 10 Days #20 tab 02/01/25 metroNIDAZOLE [Flagyl] 500 mg PO Q8H 10 Days #30 tab 02/01/25 New Medications: Ciprofloxacin HCl [Cipro 500 MG Tablet] 500 mg PO BID 10 Days #20 tab metroNIDAZOLE [Flagyl] 500 mg PO Q8H 10 Days #30 tab Physician Discharge Instructions: 1. Please call and schedule a follow-up appointment with your PCP in 3-5 days - Please follow-up with your PCP for medication refills/adjustments 2. Please call and schedule a follow-up appointment with Dr. Reza in one week 3. Continue regular diet 4. No activity restrictions 5. Return to the ED if symptoms worsen New medications Ciprofloxacin 500 mg twice daily for 10 days Flagyl 500 mg three times daily for 10 days Daily dressing Daily: Remove all packing from perianal wound irrigate wound with sterile saline then repack with iodoform packing and placed a sterile dry dressing over the top Followup: Silvestre Reza MD [ACTIVE - CAN ADMIT] - NONE,NONE [Primary Care Provider] -
[2025-02-01 09:10] VITALS: BP 129/83
== END 2025-02-01 12:10 | disposition home or self-care (01) ==
LOC: ER 01:37 → ERHOLD 07:42 → UNDOADMOB 08:28 → ERHOLD 08:28 → 2ND 15:39
PROVIDERS: ADMIT Internal Medicine; ATTEND Internal Medicine
PROC: 0H99XZX Drainage of Perineum Skin, External Approach, Diagnostic (ICD-10-PCS; principal; 2025-01-30 15:45)
DX: K61.1 Rectal abscess (principal); D72.829 Elevated white blood cell count, unspecified; K50.90 Crohn's disease, unspecified, without complications; F17.290 Nicotine dependence, other tobacco product, uncomplicated; F12.90 Cannabis use, unspecified, uncomplicated; F17.210 Nicotine dependence, cigarettes, uncomplicated; Z88.2 Allergy status to sulfonamides; Z71.6 Tobacco abuse counseling; Z71.51 Drug abuse counseling and surveillance of drug abuser
CPT/HCPCS: 87070 ×2; 85025 ×3; 81001; 80048 ×2; 36415 ×2; 83735 ×2; 87205 ×2; 84100 ×2; 87075 ×2; 87077; 87186; 83690; 80053; 74177; 46040; Q9967; J2704; J2003; J2250; J3010 ×2; J1100; J0744 ×5; J1171 ×5; J2919; J2405 ×2; J7120; J7030 ×5; G0378